=== PATIENT | female | born 1965 | race Two or more races ===

== ENCOUNTER 2024-07-21 10:23 | Inpatient (IN) | payer MEDICARE, MEDICAID, SELFPAY ==
[2024-07-21] VITALS (16 sets, daily range): BP systolic 86–134; BP diastolic 54–94; PULSE 95–133; RESP 14–26; TEMP 36.4–38.7; O2SAT 93–100; BMI 11.2; BMI 11.9
--- NOTE | 2024-07-21 | ECG_ITS ---
Test Reason : LETHARGY Blood Pressure : / mmHG Vent. Rate : 111 BPM Atrial Rate : 111 BPM P-R Int : 142 ms QRS Dur : 084 ms QT Int : 348 ms P-R-T Axes : 078 057 261 degrees QTc Int : 473 ms Sinus tachycardia Marked ST abnormality, possible anterior subendocardial injury Abnormal ECG When compared with ECG of 02-NOV-2018 17:29, ST more depressed Anterior leads T wave inversion more evident in Anterior leads Referred By: Srinivas Garzon Electronically Signed By:ARIAS LANIER
--- NOTE | ~2024-07-21 | XR_ITS ---
EXAMINATION: XR CHEST CLINICAL INFORMATION: NG tube placement COMPARISON: Chest x-ray on 07/22/2024 TECHNIQUE: Frontal view of the chest was obtained. FINDINGS: Interval placement of an NG tube which terminates past the inferior portion of this exam within the abdomen. No other changes from the prior exam. XR/XR chest 1V IMPRESSION: NG tube terminates past the inferior portion of this exam within the abdomen. Electronically signed by: Alba German MD 07/22/2024 02:38 PM EDT
--- NOTE | ~2024-07-21 | XR_ITS ---
EXAMINATION: XR CHEST CLINICAL INFORMATION: Vomiting. Altered mental status. COMPARISON: None currently available. TECHNIQUE: 2 views of the chest were obtained. FINDINGS: No significant abnormality is noted involving the heart, lungs, mediastinum, bony thorax or soft tissues. Mild calcification of the right carotid bulb. Left nipple shadow. XR/XR chest 2V IMPRESSION: Unremarkable examination. Electronically signed by: Srinivas Patel MD 07/21/2024 12:28 PM EDT
--- NOTE | ~2024-07-21 | US_ITS ---
EXAMINATION: US RETROPERITONEAL LIMITED, RIGHT (RENAL ONLY) CLINICAL INFORMATION: Osteoarthritis. COMPARISON: Ultrasound 07/24/2024. CT 07/22/2024. TECHNIQUE: Targeted ultrasound of the right kidney FINDINGS: RIGHT KIDNEY: 11.3 x 5.3 x 5.9 cm (SAG x AP x TRV). The irregular region of heterogeneous hypoechogenicity within the midpole right kidney appears similar, approximately 4.1 x 3.3 x 3.3 cm in size with hypervascularity, trace perirenal fluid, and mild hydronephrosis. This may represent pyelonephritis. Cannot exclude a renal mass. Correlate with urinalysis and follow-up cross-sectional imaging. If the patient is unable to receive iodinated contrast, a renal MRI would be recommended. US/US renal RT IMPRESSION: Similar-appearing heterogeneous region of hypoechogenicity within the midpole of the right kidney with hypervascularity, trace perirenal fluid, and mild hydronephrosis. This may represent pyelonephritis. Cannot exclude a renal mass. Correlate with urinalysis and follow-up cross-sectional imaging. If the patient is unable to receive iodinated contrast, a renal MRI would be recommended. Electronically signed by: Roldan Campbell MD 07/25/2024 02:33 PM EDT
--- NOTE | ~2024-07-21 | XR_ITS ---
EXAMINATION: XR CHEST CLINICAL INFORMATION: Status post repositioning of NG tube COMPARISON: Multiple prior chest radiographs, including same-day chest radiograph dated 07/23/2024 at 11:44 AM. TECHNIQUE: Frontal view of the chest was obtained. FINDINGS: The endogastric tube is repositioned initially in the same configuration with the tube looping back in the stomach and coursing superiorly with tip terminating in the mid esophagus on the radiograph obtained at 12:56 PM. The nasogastric tube is again repositioned, and the subsequent endogastric tube at 1:26 PM demonstrates a satisfactory position with the tip out of the field of view but otherwise within the stomach. Similar position of the right IJ central venous catheter with tip projecting over the superior cavoatrial junction. Persistent diffuse interstitial prominence and patchy airspace opacities. No pleural effusion. No pneumothorax. The heart is normal in size. XR/XR chest 1V IMPRESSION: 1. Satisfactory position of the endogastric tube following two repositioning attempts. 2. Satisfactory position of the right IJ central venous catheter. 3. Persistent diffuse interstitial prominence and patchy airspace opacities, which may represent pulmonary edema versus atypical pneumonia in the correct clinical setting. Electronically signed by: Mally Duque MD 07/23/2024 01:56 PM EDT RP
--- NOTE | ~2024-07-21 | XR_ITS ---
EXAMINATION: XR CHEST CLINICAL INFORMATION: Tube placement COMPARISON: Chest radiograph dated 07/22/2024 TECHNIQUE: Frontal view of the chest was obtained. FINDINGS: Multiple wires project over the bilateral lung quintana. Right IJ central venous catheter remains in place, with tip projecting over the superior cavoatrial junction, previously projected at about the same level but the tip was previously medially oriented and now is slightly laterally oriented. The endogastric tube remains in place. However, it is now coiled within the stomach, loops back, and the tip then courses superiorly and into the gastroesophageal junction. Diffuse interstitial prominence and patchy airspace opacities. No pleural effusion. No pneumothorax. XR/XR chest 1V IMPRESSION: 1. Endogastric tube is coiled within the stomach, loops back, and the tip then courses superiorly and terminates in the gastroesophageal junction. Recommend repositioning. 2. Satisfactory position of the right IJ central venous catheter. 3. Diffuse interstitial prominence and patchy airspace opacities may represent pulmonary edema versus atypical pneumonia in the correct clinical setting. Electronically signed by: Mally Duque MD 07/23/2024 12:23 PM EDT
--- NOTE | ~2024-07-21 | XR_ITS ---
EXAMINATION: XR CHEST CLINICAL INFORMATION: OG tube replacement COMPARISON: Chest x-ray on 07/26/2024 TECHNIQUE: Frontal view of the chest was obtained. FINDINGS: The OG tube is coiled within the stomach. There is a right upper extremity PICC terminates at the cavoatrial junction. The cardiomediastinal silhouette is stable. Redemonstration of the bilateral diffuse interstitial opacities. No new areas of consolidation. No pleural effusions. XR/XR chest 1V IMPRESSION: 1. OG tube is coiled within the stomach. 2. Unchanged bilateral diffuse interstitial opacities. Electronically signed by: Alba German MD 07/30/2024 03:23 PM EDT
--- NOTE | ~2024-07-21 | CT_ITS ---
EXAMINATION: CT PELVIS WITH CONTRAST CLINICAL INFORMATION: Sacral ulcer. Evaluate for osteomyelitis. COMPARISON: CT abdomen/pelvis dated 07/22/2024. TECHNIQUE: Helical scanning was performed with submillimeter collimation through the pelvis with the use of oral contrast and during bolus intravenous injection of 100 mL of Omnipaque 350 intravenous contrast. Sagittal and coronal multiplanar 2-D reconstructions were obtained. This CT examination was performed using dose optimization techniques as appropriate, variously including the following: *Automated exposure control. *Adjustment of mA and/or kV according to patient size (this includes techniques or standardized protocols for targeted exams where dose is matched to indication/reason for exam; i.e. extremities or head). *Use of iterative reconstruction technique. DLP: 178 mGy-cm FINDINGS: Soft tissue ulceration at the distal sacrum and coccyx with an overlying wound dressing, slightly more prominent when compared to the prior examination. This measures approximately 5.6 cm in craniocaudal dimension. There is adjacent skin thickening and underlying subcutaneous stranding, consistent with cellulitis. No organized fluid collection or abscess formation. There appears to be erosion through the posterior elements at S5 as well as irregularity of the proximal coccyx. Findings could represent acute on chronic osteomyelitis in the appropriate clinical setting. Small amount of pelvic free fluid, slightly more prominent when compared to the prior examination. No organized fluid collection. Partially distended urinary bladder with a Cannon catheter in place. No pelvic bowel obstruction. No large pelvic mass. The visualized vascular structures are unremarkable. No pelvic wall hernia. Circumferential subcutaneous edema, increased when compared to the prior examination. No acute fracture or dislocation. Geographic areas of linear sclerosis within the right and left femoral heads with central normal marrow density, consistent with chronic avascular necrosis. No cortical collapse or fragmentation. Probable bone island within the right sacrum. CT/CT pelvis w IV con IMPRESSION: 1. Soft tissue ulceration at the distal sacrum and coccyx with an overlying wound dressing, slightly more prominent when compared to the prior examination. Adjacent skin thickening and subcutaneous stranding, consistent with synovitis. No organized fluid collection or abscess formation. 2. Erosion through the posterior elements at S5 as well as irregularity of the proximal coccyx. Findings could represent acute on chronic osteomyelitis in the appropriate clinical setting. 3. Small amount of pelvic free fluid, slightly more prominent when compared to the prior examination. No organized fluid collection. 4. Circumferential subcutaneous edema, increased when compared to the prior examination. 5. Chronic avascular necrosis within the right and left femoral heads without cortical collapse or fragmentation. Electronically signed by: Mehul Gomez MD 07/27/2024 08:40 PM EDT
--- NOTE | ~2024-07-21 | XR_ITS ---
EXAMINATION: XR CHEST CLINICAL INFORMATION: 2 feeding tube placement. COMPARISON: Chest 07/23/2024 at 1:26 PM TECHNIQUE: Frontal view of the chest was obtained. FINDINGS: There is a feeding tube coiled within the stomach. Heart size and pulmonary vascularity is normal. The lungs are hyperinflated with diffuse airspace opacities seen throughout both lungs slightly more prominent compared to previous study. No pleural effusion or pneumothorax seen. XR/XR chest 1V IMPRESSION: 1. Feeding tube is coiled within the stomach. 2. Diffuse airspace opacities throughout both lungs slightly more prominent compared to previous study. Electronically signed by: Juan Carlos Goetz MD 07/26/2024 08:42 PM EDT
--- NOTE | ~2024-07-21 | CT_ITS ---
EXAMINATION: CT ABDOMEN AND PELVIS WITHOUT CONTRAST CLINICAL INFORMATION: Hypotensive, UTI COMPARISON: None available. TECHNIQUE: Multidetector volumetric imaging was performed from the superior aspect of the liver through the pubic symphysis. Sagittal and coronal reformatted images were obtained on the technologist's workstation. This CT examination was performed using dose optimization techniques as appropriate, variously including the following: *Automated exposure control *Adjustment of mA and/or kV according to patient size (this includes techniques or standardized protocols for targeted exams where dose is matched to indication/reason for exam; i.e. extremities or head) *Use of iterative reconstruction technique DLP: 324 mGy-cm FINDINGS: LUNG BASES: Bibasilar atelectasis. Hypodensity of the blood within the aorta and heart relative to the aortic lumen and muscle is compatible with anemia. LIVER, GALLBLADDER, AND BILIARY TREE: The liver is normal in size, shape, and attenuation. No focal hepatic lesion or biliary ductal dilatation is present. There are gallstones and gallbladder sludge with pericholecystic fluid. Clinically correlate for signs of cholecystitis. PANCREAS: Pancreatic lipomatosis. SPLEEN: Unremarkable. ADRENAL GLANDS: Unremarkable. KIDNEYS AND URETERS: The kidneys are normal in size, shape, and attenuation. No hydronephrosis, hydroureter, or calculi seen. No perinephric stranding. BLADDER: Unremarkable. GASTROINTESTINAL TRACT: No obstruction or obvious inflammatory process. Mild ascites. ABDOMINAL WALL: Anasarca. LYMPH NODES: Normal. VASCULAR: Diffuse vascular calcifications. PELVIC VISCERA: Unremarkable. OSSEOUS STRUCTURES: Chronic avascular necrosis of the femoral heads. CT/CT abdomen pelvis wo IV con IMPRESSION: 1. Cholelithiasis with pericholecystic fluid. Clinically correlate for signs of cholecystitis. This may be related to the patient's underlying condition. 2. Mild ascites and anasarca. Evidence of anemia. 3. No hydronephrosis or urinary tract calculi. 4. Pancreatic lipomatosis. Fleischner guidelines were followed. Electronically signed by: Roldan Campbell MD 07/22/2024 08:04 AM EDT
--- NOTE | ~2024-07-21 | US_ITS ---
EXAMINATION: US ABDOMEN LIMITED CLINICAL INFORMATION: Abdominal pain. Gallstones. Evaluate for cholecystitis. COMPARISON: CT abdomen/pelvis dated 07/22/2024. TECHNIQUE: Real-time imaging of the right upper quadrant abdominal viscera. FINDINGS: PANCREAS: Normal. LIVER: Unremarkable. The liver is normal in size. The liver contour is normal. Parenchymal echogenicity is normal. No focal hepatic lesion. There is no intrahepatic biliary duct dilatation seen. GALLBLADDER: Gallbladder stones and sludge. No wall thickening. Small amount of ascites in the pericholecystic region without inflammatory change. COMMON BILE DUCT: Normal in caliber measuring 0.2 cm in diameter. RIGHT KIDNEY: Irregular focus of hypoechogenicity within the lateral aspect of the kidney measuring up to 5.1 x 3.5 x 2.6 cm. Findings are nonspecific and could indicate an underlying lesion versus sequela of pyelonephritis. This was not well evaluated on the prior noncontrast CT abdomen/pelvis. Dedicated renal imaging could help further evaluate if clinically indicated. The kidney measures 10.6 cm in maximum dimension. FREE FLUID: Small amount of ascites. No organized fluid collection or abscess formation. Partially visualized small right-sided effusion. US/US abdomen limited IMPRESSION: 1. Cholelithiasis without gallbladder wall thickening or pericholecystic free fluid to suggest acute cholecystitis. 2. Irregular focus of hypoechogenicity within the lateral aspect of the right kidney measuring up to 5.1 cm. Findings are nonspecific and could indicate an underlying lesion versus sequela of pyelonephritis. This was not well evaluated on the prior noncontrast CT abdomen/pelvis. Dedicated renal imaging could help further evaluate. 3. Small amount of ascites. Partially visualized small right-sided effusion. Electronically signed by: Mehul Gomez MD 07/24/2024 03:36 PM EDT
--- NOTE | ~2024-07-21 | CT_ITS ---
EXAMINATION: CT HEAD WITHOUT CONTRAST CLINICAL INFORMATION: Altered mental status COMPARISON: None available. TECHNIQUE: Contiguous axial imaging was performed from the skull base to vertex without intravenous administration of contrast. This CT examination was performed using dose optimization techniques as appropriate, variously including the following: *Automated exposure control *Adjustment of mA and/or kV according to patient size (this includes techniques or standardized protocols for targeted exams where dose is matched to indication/reason for exam; i.e. extremities or head) *Use of iterative reconstruction technique DLP: 550 mGy-cm FINDINGS: No intra-axial or extra-axial hemorrhage. No acute territorial infarct. 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 Ventricles and sulci appear normal. Chronic small vessel ischemic disease of the periventricular white matter. Preservation of wyatt-white matter differentiation. No mass, mass effect, or midline shift. No fracture. Small air-fluid levels in the maxillary sinuses. Foci of air are present within the right temporal and masseter muscles. Correlate for penetrating injury or evidence of sinus infection. The mastoid air cells and visualized paranasal sinuses are otherwise clear. CT/CT head/brain wo IV con IMPRESSION: 1. No acute intracranial pathology. Chronic right high parietal infarct. 2. Foci of air within the right temporal and masseter muscles. Correlate for penetrating injury or evidence of sinus infection. Electronically signed by: Roldan Campbell MD 07/22/2024 08:22 AM EDT
--- NOTE | ~2024-07-21 | XR_ITS ---
EXAMINATION: XR CHEST CLINICAL INFORMATION: Line placement COMPARISON: Chest x-ray of 07/21/2024, 12/18/2010 TECHNIQUE: Frontal view of the chest was obtained. FINDINGS: Multiple cardiac leads and wires overlie the chest. The patient is rotated to the left. Right IJ approach central catheter is in place with the tip projecting over the expected location of the lower SVC/superior cavoatrial junction. The cardiomediastinal silhouette is stable and normal. Diffuse interstitial prominence is noted. Patchy airspace opacities are noted in the right lower lung zone. Considering the technical limitations and differences in the patient positioning mild asymmetrical elevation of the right hemidiaphragm is a stable finding. No evidence of significant pleural effusions or pneumothorax. Visualized upper abdomen is unremarkable. XR/XR chest 1V IMPRESSION: 1. Patient's rotation somewhat limits evaluation. Right IJ approach central catheter tip projects over the expected location of the lower SVC/superior cavoatrial junction. No evidence of pneumothorax. 2. Diffuse interstitial prominence and patchy airspace opacities in the right lower lung zone. Differential possibilities may include inflammatory/inflammatory process versus interstitial/pulmonary edema. Electronically signed by: Benita Rodrigues MD 07/22/2024 11:52 AM EDT
--- NOTE | ~2024-07-21 | XR_ITS ---
EXAMINATION: XR CHEST CLINICAL INFORMATION: Confirm OG tube placement COMPARISON: Test x-ray earlier on 07/30/2024 TECHNIQUE: Frontal view of the chest was obtained. FINDINGS: The enteric tube terminates in the stomach. It has been or is contracted and no longer loops within the stomach. The tip terminates near the pylorus. No other changes. XR/XR chest 1V IMPRESSION: Enteric tube terminates in the stomach. Electronically signed by: Alba German MD 07/30/2024 03:23 PM EDT
--- NOTE | ~2024-07-21 | XR_ITS ---
EXAMINATION: XR CHEST CLINICAL INFORMATION: Status post repositioning of NG tube COMPARISON: Multiple prior chest radiographs, including same-day chest radiograph dated 07/23/2024 at 11:44 AM. TECHNIQUE: Frontal view of the chest was obtained. FINDINGS: The endogastric tube is repositioned initially in the same configuration with the tube looping back in the stomach and coursing superiorly with tip terminating in the mid esophagus on the radiograph obtained at 12:56 PM. The nasogastric tube is again repositioned, and the subsequent endogastric tube at 1:26 PM demonstrates a satisfactory position with the tip out of the field of view but otherwise within the stomach. Similar position of the right IJ central venous catheter with tip projecting over the superior cavoatrial junction. Persistent diffuse interstitial prominence and patchy airspace opacities. No pleural effusion. No pneumothorax. The heart is normal in size. XR/XR chest 1V IMPRESSION: 1. Satisfactory position of the endogastric tube following two repositioning attempts. 2. Satisfactory position of the right IJ central venous catheter. 3. Persistent diffuse interstitial prominence and patchy airspace opacities, which may represent pulmonary edema versus atypical pneumonia in the correct clinical setting. Electronically signed by: Mally Duque MD 07/23/2024 01:56 PM EDT RP
--- NOTE | 2024-07-21 10:36 | ED.NAVMDI ---
HPI - Nausea/Vomiting/Diarrhea General Chief complaint: Abdominal Pain Stated complaint: diarrhea & lethergy disoreintated Time Seen by Provider: 07/21/24 10:34 Source: patient Mode of arrival: ambulatory Limitations: other History of Present Illness HPI Narrative: 59-year-old female who has never been to this hospital in the past presents to the ER via EMS for diarrhea fatigue elevated blood sugar decreased p.o. intake and confusion. MD elicited complaint: nausea, vomiting and diarrhea Related Data Allergies Allergy/AdvReac Type Severity Reaction Status Date / Time Penicillins [PENICILLINS] Allergy Severe BLEEDING, Verified 07/21/24 10:29 VOMITING aspirin [ASA] Allergy Unknown SWELLING, Verified 07/21/24 10:29 N/V Review of Systems Review of Systems: Review of systems: General: Patient denies any fever chills recent illness or falls Musculoskeletal: Denies back pain or body aches or other injuries HEENT: denies headache, runny nose, ear pain Respiratory: denies shortness of breath, cough Cardiovascular: no chest pain or palpitations : denies dysuria, frequency Abdomen: diarrhea nausea vomiting denies abdominal pain Extremities: no swelling, no pain Skin: no diaphoresis Yes all other systems are reviewed and are negative PMFSH Social History Social History (System 09/25/21 @ 10:23 by Nidhi Oliva) Smoked in Last 30 Days: No Use of substances other than those prescribed or required for medical reasons: No Advance Directives: Yes Advance Directives Information Provided: No Advance Directives on File: No Do you have a plan to hurt others: No Plan Patient : No Physical Exam Vital Signs: Vital Signs: Last Vital Signs Temp 97.6 F 07/21/24 12:57 Pulse 95 07/21/24 12:57 Resp 14 07/21/24 12:57 BP 100/68 07/21/24 12:57 Pulse Ox 93 07/21/24 12:57 O2 Del Method Room Air 07/21/24 12:57 BMI result Body Mass Index 11.2 Course Course Course Narrative: Patient found to have hypernatremia altered mental status DKA and hypokalemia potassium was repleted I started antibiotics for bandemia and will admit to medicine. Medications Administered Generic Name Dose Route Start Last Admin Trade Name Freq PRN Reason Stop Dose Admin Potassium Chloride 10 meq in 100 mls @ 100 mls/hr 07/21/24 12:30 07/21/24 12:40 Potassium Chloride/H20 IV 07/21/24 16:29 100 mls/hr Q1H MARTHA Administration Insulin Human Regular 100 unit in 100 mls @ 3 mls/hr 07/21/24 12:30 07/21/24 12:43 Myxredlin IVCONT 3 unit/hr .Q24H MARTHA 3 mls/hr Administration Protocol 3 UNIT/HR Lactated Ringer's 1,000 mls @ 999 mls/hr 07/21/24 12:30 07/21/24 12:38 Lr IV 07/21/24 13:30 999 mls/hr .Q1H1M MARTHA Administration Discontinued Medications Generic Name Dose Route Start Last Admin Trade Name Freq PRN Reason Stop Dose Admin Droperidol 1.25 mg 07/21/24 10:37 07/21/24 11:06 Droperidol 5 Mg/2 Ml Vial IVPUSH 07/21/24 10:38 1.25 mg ONCE ONE Administration Famotidine 20 mg 07/21/24 10:37 07/21/24 11:06 Famotidine/Pf 20 Mg/2 Ml Vial IVPUSH 07/21/24 10:38 20 mg ONCE ONE Administration Sodium Chloride 1,000 mls @ 999 mls/hr 07/21/24 10:45 07/21/24 12:26 Ns IV 07/21/24 11:45 Infused .Q1H1M MARTHA Infusion Sodium Chloride 1,000 mls @ 999 mls/hr 07/21/24 12:30 07/21/24 13:12 Ns IV 07/21/24 13:30 Infused .Q1H1M MARTHA Infusion Lorazepam 1 mg 07/21/24 10:37 07/21/24 11:06 Lorazepam 2 Mg/Ml Vial IVPUSH 07/21/24 10:38 1 mg ONCE ONE Administration Potassium Chloride 40 meq 07/21/24 12:25 07/21/24 12:40 Potassium Chloride Packet 20 Meq Packet PO 07/21/24 12:26 40 meq ONCE ONE Administration Medical Decision Making Medical Decision Making [facility] Narrative: I will get a workup for DKA electrolyte abnormality dehydration0 sent for EKGs and when you have the patient nausea medications patient's belly exam is benign Differential Diagnosis Differential Diagnoses: The differential diagnosis associated with the presentation includes Nausea vomiting diarrhea dehydration electrolyte abnormality DKA UTI pyelonephritis pneumonia Admission/Observation Consideration of admission/observation: Escalation of care including admission/observation considered Lab Data [facility] Lab Attestation statement: I reviewed the patient's lab results. 07/21/24 11:41 07/21/24 11:41 Labs: Lab Results 07/21/24 07/21/24 07/21/24 Range/Units 10:32 11:00 11:06 WBC (4.8-10.8) X10*3/uL RBC (4.20-5.50) X10*6/uL Hgb (12.0-16.0) g/dl Hct (37.0-47.0) % MCV (80.0-98.0) fL MCH (27.0-33.0) pg MCHC (31.0-35.0) g/dl RDW (11.0-16.0) % Plt Count (160-400) X10*3/uL MPV (9.4-12.3) fL Immature Gran % (Auto) Neut % (Auto) Lymph % (Auto) [place] % (Auto) Eos % (Auto) Baso % (Auto) Lymph # (Auto) [place] # (Auto) Eos # (Auto) Baso # (Auto) Abs Immat Gran (auto) Absolute Neuts (auto) Absolute Nucleated RBC (0.0-0.012) X10*3/uL Nucleated RBC % (auto) (0.0-0.2) /100WBC Neutrophils % (Manual) (45-73) % Band Neutrophils % (3-5) % Lymphocytes % (Manual) (20-40) % Atypical Lymphs % (Man) (0-6) % Monocytes % (Manual) (2-11) % Metamyelocytes % % Myelocytes % % Abs Neuts (Manual) (2.0-8.3) X10*3/uL Toxic Vacuolation Dohle Bodies Platelet Estimate (NORMAL) Plt Morphology Comment RBC Morphology Manjeet Cells /OIF VBG pH 7.45 H (7.32-7.43) VBG pCO2 28 mmHg VBG pO2 59 mmHg VBG HCO3 20 L (22-26) mmol/L VBG O2 Saturation 87.0 % VBG Base Excess -2.2 mmol/L Sodium (135-145) mmol/L Potassium (3.3-5.1) mmol/L Chloride (96-108) mmol/L Carbon Dioxide (22-29) mmol/L Anion Gap (12-20) BUN (9-16) mg/dL Creatinine (0.5-1.4) mg/dL Estim Creat Clear Calc Estimated GFR POC Glucose 568 H* (60-115) mg/dL Random Glucose (60-115) mg/dL Lactic Acid 2.1 H* (0.5-2.0) mmol/L Calcium (8.4-10.2) mg/dL Total Bilirubin (0.0-1.0) mg/dL Direct Bilirubin (0.0-0.5) mg/dL AST (5-31) U/L ALT (0-31) U/L Alkaline Phosphatase (39-117) U/L Troponin I High Sens (<3.5-17.0) ng/L Total Protein (6.5-8.0) g/dL Albumin (3.5-5.0) g/dL Lipase (8-78) U/L Beta-Hydroxybutyrate 2.79 H (0.02-0.27) mmol/L 07/21/24 Range/Units 11:41 WBC 2.3 L (4.8-10.8) X10*3/uL RBC 4.00 L (4.20-5.50) X10*6/uL Hgb 10.9 L (12.0-16.0) g/dl Hct 35.3 L (37.0-47.0) % MCV 88.3 (80.0-98.0) fL MCH 27.3 (27.0-33.0) pg MCHC 30.9 L (31.0-35.0) g/dl RDW 16.0 (11.0-16.0) % Plt Count 75 L (160-400) X10*3/uL MPV 13.3 H (9.4-12.3) fL Immature Gran % (Auto) Cancelled Neut % (Auto) Cancelled Lymph % (Auto) Cancelled [place] % (Auto) Cancelled Eos % (Auto) Cancelled Baso % (Auto) Cancelled Lymph # (Auto) Cancelled [place] # (Auto) Cancelled Eos # (Auto) Cancelled Baso # (Auto) Cancelled Abs Immat Gran (auto) Cancelled Absolute Neuts (auto) Cancelled Absolute Nucleated RBC 0.000 (0.0-0.012) X10*3/uL Nucleated RBC % (auto) 0.0 (0.0-0.2) /100WBC Neutrophils % (Manual) 70 (45-73) % Band Neutrophils % 24 H (3-5) % Lymphocytes % (Manual) 1 L (20-40) % Atypical Lymphs % (Man) 2 (0-6) % Monocytes % (Manual) 1 L (2-11) % Metamyelocytes % 1 % Myelocytes % 1 % Abs Neuts (Manual) 2.2 (2.0-8.3) X10*3/uL Toxic Vacuolation PRESENT Dohle Bodies PRESENT Platelet Estimate DECREASED (NORMAL) Plt Morphology Comment NORMAL RBC Morphology NOTED Manjeet Cells 2+ (3-5) /OIF VBG pH (7.32-7.43) VBG pCO2 mmHg VBG pO2 mmHg VBG HCO3 (22-26) mmol/L VBG O2 Saturation % VBG Base Excess mmol/L Sodium 157 H (135-145) mmol/L Potassium 2.6 L* (3.3-5.1) mmol/L Chloride 124 H (96-108) mmol/L Carbon Dioxide 21 L (22-29) mmol/L Anion Gap 15 (12-20) BUN 79 H (9-16) mg/dL Creatinine 1.82 H (0.5-1.4) mg/dL Estim Creat Clear Calc 14.7 Estimated GFR 28 POC Glucose (60-115) mg/dL Random Glucose 708 H* (60-115) mg/dL Lactic Acid (0.5-2.0) mmol/L Calcium 7.7 L (8.4-10.2) mg/dL Total Bilirubin 0.6 (0.0-1.0) mg/dL Direct Bilirubin 0.4 (0.0-0.5) mg/dL AST 19 (5-31) U/L ALT 19 (0-31) U/L Alkaline Phosphatase 117 (39-117) U/L Troponin I High Sens 2.8 (<3.5-17.0) ng/L Total Protein 5.0 L (6.5-8.0) g/dL Albumin 2.3 L (3.5-5.0) g/dL Lipase 5 L (8-78) U/L Beta-Hydroxybutyrate (0.02-0.27) mmol/L Independent Interpretation I performed an independent interpretation of an: EKG and Plain X-Ray Interpretation: Rate 111 sinus tachycardia some ischemic looking T-waves inferiorly I will add on troponins as they were not done initially Critical Care Time Critical Care Time Critical Care Time: Yes Total Critical Care Time: 55 Attestation: Patient with hypernatremia DKA and needing admission to the ICU. Also with hypokalemia that was required replenishment. Discharge Plan Discharge Clinical Impression: Acute hypernatremia, Acute dehydration, Acute hypokalemia, Diabetic keto-acidosis, Acidosis, lactic, Acute kidney injury Patient Disposition: Admitted As Inpatient Print Language: Divehi
[2024-07-21 10:38] LABS: Glucose, Whole Blood 568 mg/dL (60-115)
[2024-07-21] MEDS: Famotidine/PF 20 MG/2 ML VIAL IVPUSH (11:06)
[2024-07-21] MEDS: droPERidol 5 MG/2 ML VIAL 1.25 MG IVPUSH (11:06)
[2024-07-21] MEDS: LORazepam 2 MG/ML VIAL 1 MG IVPUSH ×2 (11:06→23:18)
--- NOTE | 2024-07-21 11:06 | PC.NURSE ---
pt biba from home d/t nonbloody diarrhea/lethargy/hyperglycemia/confusion/decreased PO intake x 2 days. POC = 584mg/dL via EMS. pt verbalizes generalized abd pain. denies nausea/vomiting. upon ED arrival - pt a&ox4 but seemingly lethargic. tachycardic. denies chest pain/palpitations. hypotensive. BP obtained in UE bilaterally. POC upon ED arrival = 568mg/dL. pt changed into hospital attire. turned/repositioned to comfort. 20gIV placed in the right forearm - labs obtained/sent to lab. IVF/medication administered per provider order. sister bedside for support. no sob/wob noted. respirations even/unlabored. plan of care ongoing. call link placed within reach.
[2024-07-21] MEDS: 0.9 % Sodium Chloride 1,000 ML 999 ML IV ×2 (11:09→12:45)
[2024-07-21 11:10] LABS: Venous Blood Gas Refer to POC result
[2024-07-21 11:10] LABS: VBG Base Excess -2.2 mmol/L; VBG HCO3 20 mmol/L (22-26); VBG pCO2 28 mmHg; VBG pH 7.45 (7.32-7.43); VBG pO2 59 mmHg
--- NOTE | 2024-07-21 11:17 | PC.NURSE ---
pt to xray at this time. plan of care ongoing.
[2024-07-21 11:20] LABS: Lactic Acid 2.1 mmol/L (0.5-2.0)
[2024-07-21 11:21] LABS: Beta-Hydroxybutyrate 2.79 mmol/L (0.02-0.27)
--- NOTE | 2024-07-21 11:45 | PC.NURSE ---
straight catheterization performed - unable to obtain urine sample. bladder scan performed displaying 27ml. IVF continues to infuse at this time. provider notified/aware of bladder scan results. will reattempt. plan of care ongoing. call link placed within reach.
[2024-07-21 12:06] LABS: Hematocrit 35.3 % (37.0-47.0); Hemoglobin 10.9 g/dl (12.0-16.0); Mean Corpuscular HGB Conc 30.9 g/dl (31.0-35.0); Mean Corpuscular Hemoglobin 27.3 pg (27.0-33.0); Mean Corpuscular Volume 88.3 fL (80.0-98.0)
[2024-07-21 12:07] LABS: WBC ABN SCTR FOR CBC 1
--- NOTE | 2024-07-21 12:23 | PC.NURSE ---
critical lab value received at this time - troponin of 89 - dr. mcgee notified/aware.
[2024-07-21 12:24] LABS: Alanine Aminotransferase 19 U/L (0-31); Albumin Level 2.3 g/dL (3.5-5.0); Alkaline Phosphatase 117 U/L (39-117); Anion Gap 15 (12-20); Aspartate Amino Transferase 19 U/L (5-31); Bilirubin Direct 0.4 mg/dL (0.0-0.5); Bilirubin Total 0.6 mg/dL (0.0-1.0); Blood Urea Nitrogen 79 mg/dL (9-16); Calcium 7.7 mg/dL (8.4-10.2); Carbon Dioxide 21 mmol/L (22-29); Chloride 124 mmol/L (96-108); Creatinine Clr Calc Pharmacy 14.7; Estimated Glomerular Filt Rate 28; Lipase 5 U/L (8-78); Sodium 157 mmol/L (135-145)
[2024-07-21 12:25] LABS: Glucose Random 708 mg/dL (60-115); Potassium 2.6 mmol/L (3.3-5.1)
[2024-07-21] MEDS: Lactated Ringers 1,000 ML 999 ML IV (12:38)
[2024-07-21] MEDS: Potassium Chloride/H20 10 MEQ/100 ML PIGGYBACK 100 MEQ IV ×4 (12:40→17:20)
[2024-07-21] MEDS: Potassium Chloride Packet 20 MEQ PACKET 40 MEQ PO (12:40)
[2024-07-21] MEDS: Insulin Regular/NS 100 UNIT/100 ML PLAST..BAG IVCONT (12:43)
[2024-07-21 12:51] LABS: Atypical Lymphs Percent Manual 2 % (0-6); Lymphocytes Percent Manual 1 % (20-40); Metamyelocytes Percent 1 %; Monocytes Percent Manual 1 % (2-11); Myelocytes Percent 1 %; Neutrophils Percent Manual 70 % (45-73)
--- NOTE | 2024-07-21 12:54 | PC.NURSE ---
two, new 20gIVs placed in the left wrist/forearm d/t most recent resulted labs. all IV access remain patent/intact. IVF/medication administered per provider order. insulin drip currently infused @ 3u/hr d/t pt's most recent POC via lab. effectiveness pending. vss and up to date aside from pt remaining hypotensive. HR continues to improve - no longer tachycardic. trip rider displays as nsr. pt remains lethargic. responsive to physical stimuli only at this time. sternal rub needed to wake pt. unable to administer PO K+ d/t pt having difficulty swallowing despite sitting upright to promote patent airway. provider notified/aware that pt failed nursing swallow assessment at this time. pt remains on RA w/o difficulty - no sob/wob noted. respirations even/unlabored. plan of care ongoing. call link placed within reach.
[2024-07-21 12:57] LABS: Burr Cells 2+ (3-5) /OIF; Dohle Bodies PRESENT; RBC Morphology NOTED; Toxic Vacuolation PRESENT
[2024-07-21 12:58] LABS: Platelet Estimate DECREASED (NORMAL); Platelet Morphology Comment NORMAL
[2024-07-21 13:00] LABS: Band Neutrophils Percent 24 % (3-5)
[2024-07-21 13:01] LABS: Mean Platelet Volume 13.3 fL (9.4-12.3); Neutrophils Absolute Manual 2.2 X10*3/uL (2.0-8.3); Platelet Count 75 X10*3/uL (160-400); White Blood Count 2.3 X10*3/uL (4.8-10.8)
[2024-07-21 13:06] LABS: Reflex Lactate? Lactic Acid Added
--- NOTE | 2024-07-21 13:09 | CA_ITS ---
Transthoracic Echocardiogram Patient (Last, First, Middle): Sadia Aguirre, Gender: Female Date of : 1965 Age: 59 Procedure Date: 07/21/2024 Procedure Type: Transthoracic Echocardiogram Location: ER Height: 160.02 cm Weight: 28.58 kg BSA: 1.18 m2 Heart Rate: bpm BP: 100 / 68 mmHg Director Of Exhibits: Referring MD: Srinivas Garzon DO Symptoms: abnormal EKG Study Quality: Adequate ECG Rhythm: Sinus Conclusions: - Normal left ventricular size, thickness, systolic function, and wall motion. The visually estimated ejection fraction is between 60-65%. Diastolic function is normal for age. - Normal right ventricular cavity size and systolic function. Findings Left Ventricle Normal left ventricular size, thickness, systolic function, and wall motion. The visually estimated ejection fraction is between 60-65%. Diastolic function is normal for age. Right Ventricle Normal right ventricular cavity size and systolic function. Atria The left atrium is normal in size. Aortic Valve The aortic valve was not well visualized. There is no aortic valve stenosis. There is no aortic valve regurgitation. Mitral Valve The mitral valve appears normal. There is trace mitral valve regurgitation. There is no mitral valve stenosis. Pulmonic Valve The pulmonic valve is likely normal. Tricuspid Valve Normal tricuspid valve structure. There is no tricuspid valve regurgitation. Normal right atrial pressure. There is no evidence of pulmonary hypertension. Great Vessels All visible segments of the aorta are normal in size. The visualized portions of the pulmonary artery and branches are normal. Venous The inferior vena cava is normal in size and collapses greater than 50% with inspiration. Pericardium/Pleural There is no evidence of pericardial effusion. Prior Study Comparison No prior study available for comparison. Measurements 2D Linear Measurements IVSd: 0.86 0.6-0.9/0.6-1.0 cm LVIDd: 3.20 3.9-5.3/4.2-5.9 cm LVIDd Index: 2.71 2.4-3.2/2.2-3.1 cm/m2 LVIDs: 2.30 2.0-3.6 cm LVPWd: 0.88 0.7-1.1 cm Ao Root: 3.30 2.1-3.5 cm LA Diam: 1.80 2.7-3.8/3.0-4.0 cm LAIDs Index: 1.53 1.5-2.3 cm/m2 LV Mass: 90.99 67-162/88-224 g LV Mass Index: 77.11 43-95/49-115 g/m2 LVOT Diam: 2.00 3.0+(-)1.3 cm 2D Systolic Function EF 4C: 64.00 >55% EF 2C: 61.70 >55% Mitral Valve MV Pk E: 0.61 MV PK A: 0.85 MV Decel Time: 82.00 E/A: 0.70 E'Lateral: 12.40 E'Medial: 8.59 E/E' Med: 7.10 E/E' Lat: 4.90 PHT: 24.00 MVA PHT: 9.17 Decel Dale: 7.41 Aortic Valve AoV Pk Gerardo: 1.18 AoV Mn Gerardo: 0.76 AoV VTI: 0.23 AoV Pk Grad: 6.00 Aov Mn Grad: 3.00 GLORIA Cont.VTI: 2.37 LVOT LVOT Pk Gerardo: 0.86 LVOT Mn Gerardo: 0.50 LVOT VTI: 0.17 LVOT Pk Grad: 3.00 LVOT Mn Grad: 1.00 LVOT Diam: 2.00 LVOT Area: 3.14 Diastolic Function MV Pk E: 0.61 MV Pk A: 0.85 E/A: 0.70 E'Medial: 8.59 E/E' Med: 7.10 E' Laterial: 12.40 E/E' Lat: 4.90 Right Ventricle TAPSE (mm): 28.00 TVS' Gerardo: 19.00 Tricuspid Valve TR Pk Gerardo: 2.00 TR Pk Grad: 16.00 RA Press: 3.00 RVSP: 19.00 Great Vessels Aorta Ao Root-2D: 3.30 2.0-3.7 cm Ao Asc: 3.20 2.1-3.4 cm Pulmonary Valve PV Pk Gerardo: 0.91 Peak PV Grad: 3.00 Updated in Other Vendor System with Status of Final Luca Weaver MD electronically signed on 07/21/2024 2:52:15 PM with status of Final
[2024-07-21 13:11] LABS: Troponin-I High Sensitivity 2.8 ng/L (<3.5-17.0)
--- NOTE | 2024-07-21 13:15 | ECG_ITS ---
Test Reason : REPEAT Blood Pressure : / mmHG Vent. Rate : 099 BPM Atrial Rate : 099 BPM P-R Int : 144 ms QRS Dur : 080 ms QT Int : 364 ms P-R-T Axes : 040 051 -65 degrees QTc Int : 467 ms Normal sinus rhythm ST & T wave abnormality, consider inferior ischemia ST & T wave abnormality, consider anterolateral ischemia Abnormal ECG When compared with ECG of 21-JUL-2024 10:36, ST no longer depressed in Inferior leads ST less depressed in Anterior leads T wave inversion less evident in Inferior leads T wave inversion less evident in Anterior leads Referred By: Srinivas Garzon Electronically Signed By:ARIAS LANIER
[2024-07-21] MEDS: Lactated Ringers 1,000 ML 100 ML IVCONT ×2 (13:26→18:43)
[2024-07-21] MEDS: cefEPime HCl 2 GM in 0.9 % Sodium Chloride 50 ML IV (13:29)
[2024-07-21] MEDS: Heparin Sodium,Porcine 5,000 UNIT/ML VIAL 5000 UNIT SUBCUT (13:29)
[2024-07-21] MEDS: Albumin Human 25 % 100 ML IV ×2 (13:32→19:55)
[2024-07-21] MEDS: vancomycin HCL 1,000 MG in 0.9 % Sodium Chloride 250 ML 270 MG IV (13:47)
--- NOTE | 2024-07-21 13:49 | PC.NURSE ---
repeat POC obtained displaying 533mg/dL. insulin drip titrated per protocol. pt waiting for bed assignment in the ICU at this time. plan of care ongoing.
[2024-07-21 13:51] LABS: Glucose, Whole Blood 533 mg/dL (60-115)
[2024-07-21 13:56] LABS: Anion Gap 17 (12-20)
[2024-07-21 14:04] LABS: Blood Urea Nitrogen 77 mg/dL (9-16); Calcium 7.9 mg/dL (8.4-10.2); Carbon Dioxide 18 mmol/L (22-29); Chloride 124 mmol/L (96-108); Creatinine Clr Calc Pharmacy 14.8; Estimated Glomerular Filt Rate 29; Glucose Random 679 mg/dL (60-115); Phosphorus 3.2 mg/dL (2.7-4.5); Sodium 156 mmol/L (135-145)
[2024-07-21 14:12] LABS: TSH reflex Free T4 0.69 uIU/mL (0.32-4.0)
[2024-07-21 14:43] LABS: Glucose, Whole Blood 491 mg/dL (60-115)
[2024-07-21 15:12] LABS: Glucose, Whole Blood 512 mg/dL (60-115)
--- NOTE | 2024-07-21 15:29 | P.HPCC_ITS ---
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 On ER evaluation patient with elevated serum ketones, but no acidosis, started on insulin drip and admitted to the intensive care unit. Review of Systems 2 Review of Systems: No Unobtainable due to mental condition PMFSH Social History Social History (System 09/25/21 @ 10:23 by Nidhi Oliva) Smoked in Last 30 Days: No Use of substances other than those prescribed or required for medical reasons: No Advance Directives: Yes Advance Directives Information Provided: No Advance Directives on File: No Do you have a plan to hurt others: No Plan Patient : No Meds Allergies Allergy/AdvReac Type Severity Reaction Status Date / Time Penicillins [PENICILLINS] Allergy Severe BLEEDING, Verified 07/21/24 10:29 VOMITING aspirin [ASA] Allergy Unknown SWELLING, Verified 07/21/24 10:29 N/V Active Medications: Current Medications Heparin Sodium (Porcine) (Heparin Sodium,Porcine 5,000 Unit/Ml Vial) 5,000 unit SUBCUT Q12H [facility] Last Admin: 07/21/24 13:29 Dose: 5,000 unit Potassium Chloride (Potassium Chloride/H20) 10 meq in 100 mls @ 100 mls/hr IV Q1H [facility] Stop: 07/21/24 16:29 Last Admin: 07/21/24 14:38 Dose: 100 mls/hr Insulin Human Regular (Myxredlin) 100 unit in 100 mls @ 3 mls/hr IVCONT .Q24H [facility]; Protocol Last Titration: 07/21/24 14:43 Dose: 3 unit/hr, 3 mls/hr Dextrose (D10) 250 mls @ 750 mls/hr IV Q30M PRN PRN Reason: BG <70 Lactated Ringer's (Lr) 1,000 mls @ 100 mls/hr IVCONT .Q10H [facility] Last Admin: 07/21/24 13:26 Dose: 100 mls/hr Albumin Human (Kedbumin 25 %) 100 mls @ 100 mls/hr IV Q6H [facility] Stop: 07/22/24 08:14 Last Infusion: 07/21/24 14:33 Dose: Infused Home Medications ?Medication ?Instructions ?Recorded ?Confirmed ?Last Taken ?Type allopurinol 100 mg tablet 100 mg PO DAILY 07/21/24 07/21/24 Unknown History insulin glargine 100 unit/mL (3 24 unit subcut BEDTIME 07/21/24 07/21/24 Unknown History mL) subcutaneous pen (Lantus Solostar U-100 Insulin) insulin lispro 100 unit/mL 1 sliding scale dose subcut 07/21/24 07/21/24 Unknown History subcutaneous pen (Humalog KwikPen USEASDIRECTD (U-100) Insulin) lisinopril 10 mg tablet 10 mg PO DAILY 07/21/24 07/21/24 Unknown History Physical Exam 2 Vital Signs: Vital Signs: Last Vital Signs Temp 97.9 F 07/21/24 14:29 Pulse 101 H 07/21/24 15:00 Resp 20 07/21/24 15:00 BP 102/71 07/21/24 15:00 Pulse Ox 94 07/21/24 15:00 O2 Del Method Room Air 07/21/24 15:00 BMI result Body Mass Index 11.9 Const: General: no acute distress and other (petite) Nutritional Appearance: cachectic Eyes: Sclerae: sclerae normal EOM: EOMs intact bilaterally Neck: Neck: Yes no lymphadenopathy, Yes trachea midline and Yes supple Resp: Effort & Inspection: normal respiratory effort and no respiratory distress Auscultation: clear to auscultation bilaterally Cardio: Rate: tachycardic Rhythm: regular rhythm Heart sounds: no gallops, no murmurs and no rubs GI: Palpation (GI): Soft to palpation and Other GI palpation findings present ( Nontender) Auscultation: normal bowel sounds Extrem: General: Yes no pedal edema, No clubbing and No cyanosis Results Labs 07/21/24 11:41 07/21/24 13:21 Labs: Laboratory Results - last 24 hr 07/21/24 07/21/24 07/21/24 10:32 11:00 11:06 MCV MCH MCHC RDW Plt Count MPV Immature Gran % (Auto) Neut % (Auto) Lymph % (Auto) [place] % (Auto) Eos % (Auto) Baso % (Auto) Lymph # (Auto) [place] # (Auto) Eos # (Auto) Baso # (Auto) Abs Immat Gran (auto) Absolute Neuts (auto) Absolute Nucleated RBC Nucleated RBC % (auto) Neutrophils % (Manual) Band Neutrophils % Lymphocytes % (Manual) Atypical Lymphs % (Man) Monocytes % (Manual) Metamyelocytes % Myelocytes % Abs Neuts (Manual) Toxic Vacuolation Dohle Bodies Platelet Estimate Plt Morphology Comment RBC Morphology Manjeet Cells VBG pH 7.45 H VBG pCO2 28 VBG pO2 59 VBG HCO3 20 L VBG O2 Saturation 87.0 VBG Base Excess -2.2 Anion Gap Estim Creat Clear Calc Estimated GFR POC Glucose 568 H* Random Glucose Lactic Acid 2.1 H* Lactic Acid F/U @ 2Hr Calcium Phosphorus Total Bilirubin Direct Bilirubin AST ALT Alkaline Phosphatase Troponin I High Sens Total Protein Albumin Lipase Beta-Hydroxybutyrate 2.79 H TSH 07/21/24 07/21/24 07/21/24 11:41 13:21 13:40 MCV 88.3 MCH 27.3 MCHC 30.9 L RDW 16.0 Plt Count 75 L MPV 13.3 H Immature Gran % (Auto) Cancelled Neut % (Auto) Cancelled Lymph % (Auto) Cancelled [place] % (Auto) Cancelled Eos % (Auto) Cancelled Baso % (Auto) Cancelled Lymph # (Auto) Cancelled [place] # (Auto) Cancelled Eos # (Auto) Cancelled Baso # (Auto) Cancelled Abs Immat Gran (auto) Cancelled Absolute Neuts (auto) Cancelled Absolute Nucleated RBC 0.000 Nucleated RBC % (auto) 0.0 Neutrophils % (Manual) 70 Band Neutrophils % 24 H Lymphocytes % (Manual) 1 L Atypical Lymphs % (Man) 2 Monocytes % (Manual) 1 L Metamyelocytes % 1 Myelocytes % 1 Abs Neuts (Manual) 2.2 Toxic Vacuolation PRESENT Dohle Bodies PRESENT Platelet Estimate DECREASED Plt Morphology Comment NORMAL RBC Morphology NOTED Manjeet Cells 2+ (3-5) VBG pH VBG pCO2 VBG pO2 VBG HCO3 VBG O2 Saturation VBG Base Excess Anion Gap 15 17 Estim Creat Clear Calc 14.7 14.8 Estimated GFR 28 29 POC Glucose 533 H* Random Glucose 708 H* 679 H* Lactic Acid Lactic Acid F/U @ 2Hr 2.0 Calcium 7.7 L 7.9 L Phosphorus 3.2 Total Bilirubin 0.6 Direct Bilirubin 0.4 AST 19 ALT 19 Alkaline Phosphatase 117 Troponin I High Sens 2.8 Total Protein 5.0 L Albumin 2.3 L Lipase 5 L Beta-Hydroxybutyrate TSH 0.69 07/21/24 07/21/24 14:40 15:08 MCV MCH MCHC RDW Plt Count MPV Immature Gran % (Auto) Neut % (Auto) Lymph % (Auto) [place] % (Auto) Eos % (Auto) Baso % (Auto) Lymph # (Auto) [place] # (Auto) Eos # (Auto) Baso # (Auto) Abs Immat Gran (auto) Absolute Neuts (auto) Absolute Nucleated RBC Nucleated RBC % (auto) Neutrophils % (Manual) Band Neutrophils % Lymphocytes % (Manual) Atypical Lymphs % (Man) Monocytes % (Manual) Metamyelocytes % Myelocytes % Abs Neuts (Manual) Toxic Vacuolation Dohle Bodies Platelet Estimate Plt Morphology Comment RBC Morphology [place] Cells VBG pH VBG pCO2 VBG pO2 VBG HCO3 VBG O2 Saturation VBG Base Excess Anion Gap Estim Creat Clear Calc Estimated GFR POC Glucose 491 H* 512 H* Random Glucose Lactic Acid Lactic Acid F/U @ 2Hr Calcium Phosphorus Total Bilirubin Direct Bilirubin AST ALT Alkaline Phosphatase Troponin I High Sens Total Protein Albumin Lipase Beta-Hydroxybutyrate TSH Imaging Radiologist's Impressions: Impressions Chest X-Ray 07/21/24 10:38 IMPRESSION: Unremarkable examination. Electronically signed by: Srinivas Patel MD 07/21/2024 12:28 PM EDT RP Assessment and Plan (1) Cachexia: Status: Acute (2) Ketosis: Status: Acute (3) Hypernatremia: Status: Acute (4) Intravascular volume depletion: Status: Acute (5) Hermansky-Pudlak syndrome: Status: Acute (6) Acute renal failure: Status: Acute Plan Assessment: 59-year-old lady with underlying musculoskeletal ox syndrome, developmental delay, diabetes mellitus admitted with diarrhea and hyperglycemic hyperosmolar state Plan: Neuro: No acute issues. Cardiac: No acute issues. Pulmonary: No acute issues. Renal: Acute renal failure likely secondary to hyperglycemic/hyperosmolar state. Continue to monitor renal indices and urine output. Endo: Hyperglycemia/small state. Continue with insulin drip. GI: No acute issues. ID: No acute issues Heme/Onc: No acute issues. Psych: No acute issues. Miscellaneous: No acute issues. Prophylaxis: Heparin Diet: NPO
--- NOTE | 2024-07-21 15:32 | PHA.MEDREC ---
Addendum entered by Osmar Hahn [facility] 07/21/24 15:47: Med rec reviewed, Lisinopril filled on Jul 2023 was 20 mg Original Note: Pharmacy Consult ? Medication Reconciliation Pharmacy has completed the medication reconciliation. Spoke to sister Mojgan over the phone and she states they just moved from [place] and her sister has no pharmacy she is filling at up here but states she has some medications. She states she has Lisionpril 10mg, Allopurinol and the sister was not sure but thinks she is on 100mg, Lantus solostar and the sister believes its 24 units injected at bed, A Kwik-Set Pen sliding scale TID AC, her sister claims she got them filled at a [facility] @[address] [facility]. I called them and they stated they only have a Lisinopril 2mg tab filled from July of 2023 and nothing else before or after then.
[2024-07-21 15:45] LABS: Glucose, Whole Blood 466 mg/dL (60-115)
[2024-07-21 16:08] LABS: Glucose, Whole Blood 429 mg/dL (60-115)
[2024-07-21 17:05] LABS: Glucose, Whole Blood 457 mg/dL (60-115)
--- NOTE | 2024-07-21 17:33 | HO.SKINPHOTO ---
Location: sacrum Category: deep tissue injury/pressure injury Stage: unstagable
[2024-07-21 18:01] LABS: Glucose, Whole Blood 394 mg/dL (60-115)
[2024-07-21] MEDS: Acetaminophen Supp 650 MG SUPP.RECT PR (18:06)
[2024-07-21] MEDS: Metoprolol Tartrate 5 MG/5 ML VIAL IVPUSH (18:41)
[2024-07-21 19:03] LABS: Glucose, Whole Blood 351 mg/dL (60-115)
[2024-07-21] MEDS: cefTRIAXone sodium 1 GM in 0.9 % Sodium Chloride 50 ML IV (19:55)
[2024-07-21 20:01] LABS: Glucose, Whole Blood 305 mg/dL (60-115)
[2024-07-21 20:55] LABS: Albumin Level 3.8 g/dL (3.5-5.0); Anion Gap 21 (12-20); Blood Urea Nitrogen 70 mg/dL (9-16); Calcium 8.4 mg/dL (8.4-10.2); Carbon Dioxide 14 mmol/L (22-29); Chloride 126 mmol/L (96-108); Creatinine Clr Calc Pharmacy 15.4; Estimated Glomerular Filt Rate 28; Glucose Random 396 mg/dL (60-115); Magnesium 2.7 mg/dL (1.6-2.6); Phosphorus 0.9 mg/dL (2.7-4.5); Potassium 3.5 mmol/L (3.3-5.1); Sodium 157 mmol/L (135-145)
[2024-07-21] MEDS: Potassium Phosphate/NS 15 MMOL/250 ML PLAST..BAG 62.5 MMOL IV (21:07)
[2024-07-21 21:14] LABS: Glucose, Whole Blood 271 mg/dL (60-115)
[2024-07-21 22:10] LABS: Glucose, Whole Blood 214 mg/dL (60-115)
[2024-07-21 23:07] LABS: Glucose, Whole Blood 153 mg/dL (60-115)
--- NOTE | 2024-07-21 23:08 | PM.EVENT ---
Documented by User: Stewart Dennis NP 07/21/24 23:17 Event Note Date of Service: 07/21/24 Event Note: Patient with new seizure-like activity, from chart review no history of seizures. Improve after Ativan administration. We will also initiate Keppra. Repeat labs Time Spent With Patient Time: Total time managing care of this patient today ____ minutes. Documented by User: Isaac Villar MD 07/22/24 12:46 Event Note Date of Service: 07/22/24
[2024-07-21] MEDS: levETIRAcetam in NaCl (iso-os) 500 MG/100 ML PIGGYBACK 400 MG IV (23:25)
[2024-07-21] MEDS: Dextrose 5 % and Lactated Ring 1,000 ML 100 ML IVCONT (23:45)
[2024-07-21 23:53] LABS: Venous Blood Gas Refer to POC result
[2024-07-21 23:54] LABS: VBG Base Excess -7.7 mmol/L; VBG HCO3 15 mmol/L (22-26); VBG pCO2 24 mmHg; VBG pO2 117 mmHg
[2024-07-22] VITALS (45 sets, daily range): BP systolic 68–131; BP diastolic 45–89; PULSE 76–130; RESP 15–30; TEMP 35.9–40; O2SAT 89–100; BMI 11.9
[2024-07-22 00:08] LABS: Glucose, Whole Blood 98 mg/dL (60-115)
[2024-07-22 00:09] LABS: Anion Gap 19 (12-20); Blood Urea Nitrogen 68 mg/dL (9-16); Calcium 8.2 mg/dL (8.4-10.2); Carbon Dioxide 16 mmol/L (22-29); Chloride 130 mmol/L (96-108); Creatinine Clr Calc Pharmacy 17.1; Estimated Glomerular Filt Rate 31; Glucose Random 227 mg/dL (60-115); Potassium 3.4 mmol/L (3.3-5.1); Sodium 162 mmol/L (135-145)
[2024-07-22] MEDS: Dextrose 5 % 1,000 ML 100 ML IVCONT (00:15)
[2024-07-22] MEDS: 0.9 % Sodium Chloride Flush 3 ML SYRINGE IVFLUSH ×4 (00:22→23:43)
[2024-07-22] MEDS: Potassium Phosphate/NS 15 MMOL/250 ML PLAST..BAG 62.5 MMOL IV ×3 (00:56→21:18)
[2024-07-22] MEDS: Albumin Human 25 % 100 ML IV ×3 (00:56→21:18)
[2024-07-22] MEDS: Acetaminophen 1,000 MG/100 ML PIGGYBACK 400 MG IV (00:56)
[2024-07-22 01:06] LABS: Glucose, Whole Blood 101 mg/dL (60-115)
[2024-07-22 02:10] LABS: Glucose, Whole Blood 106 mg/dL (60-115)
[2024-07-22] MEDS: Norepinephrine Bitartrate/D5W 8 MG/250 ML PLAST..BAG 2.86 MG IVCONT (02:17)
[2024-07-22 02:47] LABS: Lactic Acid 3.5 mmol/L (0.5-2.0)
--- NOTE | 2024-07-22 02:53 | PM.SEPBOLA4 ---
Sepsis Bolus Exclusion Sepsis Bolus Exclusion CHF/Renal Failure Date of Occurrence: 07/22/24 This patient met severe sepsis criteria due to the following condition(s):: Hypotension and Lactate>=4mmol/L In my clinical judgement the administration of 30 ml/kg of crystalloid would be detrimental to this patient due to the patient's following conditions:: Concern for fluid overload and Other Other (must be specific):: Patient has hypernatremia and at risk for fluid overload Replace the 30 mls/kg with (Zero amount not acceptable and all fluids for severe sepsis must be given at GREATER than 125 mls/hr) *Note: One of the quintana must be documented Colloids amount given in mls:: 100 At a rate of (must be > 125 cchr):: 133
--- NOTE | 2024-07-22 02:57 | PM.SEPSIS ---
Sepsis Event Note Evaluation Sepsis screening result: No Definite Risk Focused Exam Vital signs: Vital Signs Temp Pulse Resp BP Pulse Ox O2 Del Method 07/22/24 02:27 100 77/46 L 07/22/24 02:17 110 H 81/47 L 07/22/24 02:00 100.4 F 104 H 25 H 81/47 L 99 Room Air 07/22/24 01:00 120 H 24 H 96/56 L 94 Room Air 07/22/24 00:40 104.0 F H 07/22/24 00:00 103.1 F H 130 H 30 H 121/84 95 Room Air 07/21/24 23:00 131 H 26 H 114/94 H 99 Room Air 07/21/24 22:00 100 19 93/54 L 100 Room Air 07/21/24 21:00 99 23 H 117/57 L 97 Room Air 07/21/24 19:55 100.4 F 104 H 24 H 108/87 96 Room Air 07/21/24 18:51 100 17 119/61 98 Room Air 07/21/24 17:55 101.6 F H 133 H 18 120/68 98 Room Air 07/21/24 17:20 101.1 F H 07/21/24 16:52 118 H 26 H 134/65 95 Room Air 07/21/24 15:58 98.4 F 99 21 H 95/72 96 Room Air 07/21/24 15:00 101 H 20 102/71 94 Room Air Problem List (1) Cachexia: Status: Acute (2) Ketosis: Status: Acute (3) Hypernatremia: Status: Acute (4) Intravascular volume depletion: Status: Acute (5) Hermansky-Pudlak syndrome: Status: Acute (6) Acute renal failure: Status: Acute
[2024-07-22 03:04] LABS: Glucose, Whole Blood 93 mg/dL (60-115)
[2024-07-22] MEDS: Albumin Human 25 % 100 ML 133.33 ML IV (03:25)
[2024-07-22 03:38] LABS: Appearance Urine Cloudy; Color Urine Yellow; Glucose Urine UA 250 mg/dL (Negative); Leukocyte Esterase Urine Moderate (2+) (Negative); Nitrite Urine Negative (Negative); PH 5.5 (5.0-9.0); Specific Gravity - Urine 1.015 (1.005-1.025); UMIC TRIGGER UACC YES; Urine Blood Large (3+) (Negative); Urine Ketones Negative (Negative); Urine Protein 100 (2+) mg/dL (Neg-Trace)
[2024-07-22 03:54] LABS: Amphetamine Screen Urine Not Detected (Not Detect); Barbiturates, Urine Not Detected (Not Detect); Benzodiazepines Screen Urine Not Detected (Not Detect); Buprenorphine Scr Not Detected (Not Detect); Cannabinoid Screen Urine Not Detected (Not Detect); Cocaine Screen Urine Not Detected (Not Detect); Fentanyl, urine Not Detected (Not Detect); Methadone Screen, Urine Not Detected (Not Detect); Opiate Screen Urine Not Detected (Not Detect); Oxycodone Screen Urine Not Detected (Not Detect); Phencyclidine Screen Urine Not Detected (Not Detect)
--- NOTE | 2024-07-22 03:55 | PM.SEPSIS ---
Sepsis Event Note Evaluation Sepsis screening result: No Definite Risk <Stewart Dennis NP - Last Filed: 07/22/24 05:29> Current stage of sepsis: septic shock <Stewart Dennis NP - Last Filed: 07/22/24 05:29> Initial hypotension due to sepsis/infection: SBP < 90 mmHg and MAP < 65 mmHg <Stewart Dennis NP - Last Filed: 07/22/24 05:29> Persistent hypotension after fluid resuscitation: SBP < 90 mmHg <Stewart Dennis NP - Last Filed: 07/22/24 05:29> Possible source: genitourinary and skin/soft tissue <Stewart Dennis NP - Last Filed: 07/22/24 05:29> Focused Exam Vital signs: Vital Signs Temp Pulse Resp BP Pulse Ox O2 Del Method 07/22/24 03:54 80 75/46 L 07/22/24 03:42 84 73/45 L 07/22/24 03:25 86 68/46 L 07/22/24 03:00 98.8 F 86 19 80/49 L 99 Room Air 07/22/24 02:57 94 86/48 L 07/22/24 02:27 100 77/46 L 07/22/24 02:17 110 H 81/47 L 07/22/24 02:00 100.4 F 104 H 25 H 81/47 L 99 Room Air 07/22/24 01:00 120 H 24 H 96/56 L 94 Room Air 07/22/24 00:40 104.0 F H 07/22/24 00:00 103.1 F H 130 H 30 H 121/84 95 Room Air 07/21/24 23:00 131 H 26 H 114/94 H 99 Room Air 07/21/24 22:00 100 19 93/54 L 100 Room Air 07/21/24 21:00 99 23 H 117/57 L 97 Room Air 07/21/24 19:55 100.4 F 104 H 24 H 108/87 96 Room Air 07/21/24 18:51 100 17 119/61 98 Room Air 07/21/24 17:55 101.6 F H 133 H 18 120/68 98 Room Air 07/21/24 17:20 101.1 F H 07/21/24 16:52 118 H 26 H 134/65 95 Room Air 07/21/24 15:58 98.4 F 99 21 H 95/72 96 Room Air Focused assesment performed at 0526 Constitutional: cachectic, frail looking, in no acute distress. Mental Status: respnds to painful stimuli Eyes: Pupils are equal, round, and reactive to light. Ear, Nose, and Throat: Oropharynx clear, mucous membranes moist. Ears and nose without deformities. Trachea midline. Respiratory: Clear to auscultation Cardiovascular: S1, S2 regular. No murmurs, rubs, or gallops. Gastrointestinal: Abdomen soft, non-tender, non-distended. Normal bowel sounds. Neurologic: Protecting airway. No focal neurological deficits. Moves all extremities spontaneously. Skin: Coccyx pressure ulce Extremities: No edema. Psychiatric: Normal mood and affect. <Stewart Dennis NP - Last Filed: 07/22/24 05:29> Date exam was performed: 07/22/24 <Stewart Dennis NP - Last Filed: 07/22/24 05:29> 07/22/24 <Isaac Villar MD - Last Filed: 07/22/24 12:46> Time exam was performed: 05:26 <Stewart Dennis NP - Last Filed: 07/22/24 05:29> 12:46 <Isaac Villar MD - Last Filed: 07/22/24 12:46> Problem List (1) Septic shock: Status: Acute <Stewart Dennis NP - Last Filed: 07/22/24 05:29> (2) UTI (urinary tract infection): Status: Acute <Stewart Dennis NP - Last Filed: 07/22/24 05:29> (3) Acute renal failure: Status: Acute <Stewart Dennis NP - Last Filed: 07/22/24 05:29> (4) Cachexia: Status: Acute <Stewart Dennis NP - Last Filed: 07/22/24 05:29> (5) Ketosis: Status: Acute <Stewart Dennis NP - Last Filed: 07/22/24 05:29> (6) Hypernatremia: Status: Acute <Stewart Dennis NP - Last Filed: 07/22/24 05:29> (7) Intravascular volume depletion: Status: Acute <Stewart Dennis NP - Last Filed: 07/22/24 05:29> (8) Hermansky-Pudlak syndrome: Status: Acute <Stewart Dennis NP - Last Filed: 07/22/24 05:29>
[2024-07-22] MEDS: Lactated Ringers 1,000 ML 999 ML IV (04:04)
[2024-07-22 04:08] LABS: Glucose, Whole Blood 81 mg/dL (60-115)
[2024-07-22 04:10] LABS: Reflex Lactate? Lactic Acid Added
[2024-07-22 04:30] LABS: Hematocrit 24.5 % (37.0-47.0); Hemoglobin 7.7 g/dl (12.0-16.0); Mean Corpuscular HGB Conc 31.4 g/dl (31.0-35.0); Mean Corpuscular Hemoglobin 27.7 pg (27.0-33.0); Mean Corpuscular Volume 88.1 fL (80.0-98.0); Red Blood Count 2.78 X10*6/uL (4.20-5.50); Red Cell Distribution Width 15.9 % (11.0-16.0)
[2024-07-22 04:32] LABS: Platelet Count 57 X10*3/uL (160-400); WBC ABN SCTR FOR CBC 1; White Blood Count 2.1 X10*3/uL (4.8-10.8)
[2024-07-22 04:33] LABS: VBG Base Excess -4.7 mmol/L; VBG HCO3 19 mmol/L (22-26); VBG pCO2 29 mmHg; VBG pH 7.41 (7.32-7.43); VBG pO2 39 mmHg
[2024-07-22] MEDS: Sodium Bicarbonate 8.4% 50 MEQ/50 ML SYRINGE IVPUSH (04:35)
[2024-07-22 04:50] LABS: Bacteria Urine 1+ (None Seen); RBC Urine >20 /HPF (0-2); Squamous Epithelial Cell Urine >20 /HPF (0-2); UACC Culture Trigger YES; WBC Urine >50 /HPF (0-5)
[2024-07-22 04:52] LABS: ~Lactic Acid-LAB USE ONLY 4.5 mmol/L (0.5-2.0)
[2024-07-22 04:57] LABS: Alanine Aminotransferase 22 U/L (0-31); Albumin Level 3.7 g/dL (3.5-5.0); Alkaline Phosphatase 182 U/L (39-117); Anion Gap 18 (12-20); Aspartate Amino Transferase 85 U/L (5-31); Bilirubin Total 1.5 mg/dL (0.0-1.0); Blood Urea Nitrogen 67 mg/dL (9-16); Calcium 8.4 mg/dL (8.4-10.2); Carbon Dioxide 18 mmol/L (22-29); Chloride 129 mmol/L (96-108); Estimated Glomerular Filt Rate 36; Glucose Random 144 mg/dL (60-115); Magnesium 2.3 mg/dL (1.6-2.6); Phosphorus 2.5 mg/dL (2.7-4.5); Potassium 3.1 mmol/L (3.3-5.1); Sodium 162 mmol/L (135-145); Total Protein 5.5 g/dL (6.5-8.0)
[2024-07-22 05:14] LABS: Glucose, Whole Blood 94 mg/dL (60-115)
[2024-07-22 05:33] LABS: Venous Blood Gas Refer to POC result
[2024-07-22] MEDS: vancomycin HCL 750 MG in 0.9 % Sodium Chloride 250 ML 265 MG IV (05:49)
[2024-07-22 06:27] LABS: Reflex Lactate? 2 Y
--- NOTE | 2024-07-22 07:05 | PC.NURSE ---
Upon initial assessment at 2000- pt stuporous, minimally responsive. At approx 2300, ?sz activity, nystagmus and BUE twitching noted- [facility] Sonny notified, orders for ativan 1 mg IVP x1 and Keppra IV BID ordered and given per DEC. At approx 0030- HR up to 130s, rectal temp 104. [facility] notified- given APAP IV x1 per DEC and ice bags applied to B/L axillia. At approx 0200- SBP 80s, MAP < 60, [facility] notified- new orders for levophed, see MAR for titrations, MAP goal > 60 per [facility]. Urine sample/culture ordered, collected via straight cath d/t incontinence. Pt brought to CT scan at approx 0500 without incident.
[2024-07-22] MEDS: Potassium Chloride/H20 10 MEQ/100 ML PIGGYBACK 100 MEQ IV ×4 (07:26→10:39)
[2024-07-22 07:40] LABS: ~Lactic Acid-LAB USE ONLY 3.9 mmol/L (0.5-2.0)
[2024-07-22 07:53] LABS: Band Neutrophils Percent 23 % (3-5); Basophils Percent Manual 1 % (0-2); Lymphocytes Absolute Manual 0.3 X10*3/uL (1.2-4.9); Lymphocytes Percent Manual 14 % (20-40); Metamyelocytes Percent 2 %; Monocytes Percent Manual 1 % (2-11); Neutrophils Absolute Manual 1.7 X10*3/uL (2.0-8.3); Neutrophils Percent Manual 59 % (45-73); Nucleated Red Blood Cells 1 /100WBC (0-0)
[2024-07-22 07:54] LABS: RBC Morphology NOTED
[2024-07-22 07:56] LABS: Dohle Bodies PRESENT; Toxic Vacuolation PRESENT
[2024-07-22 07:57] LABS: Acanthocytes 1+ (0-2) /OIF; Burr Cells 1+ (0-2) /OIF
[2024-07-22 07:58] LABS: Hypochromasia 1+ (5-14) /OIF; Large Platelet PRESENT; Platelet Estimate DECREASED (NORMAL); Platelet Morphology Comment NOTED
[2024-07-22] MEDS: levETIRAcetam 250 MG in 0.9 % Sodium Chloride 100 ML 410 MG IV ×2 (09:23→21:16)
[2024-07-22] MEDS: Dextrose 5 % 1,000 ML 200 ML IVCONT ×2 (09:42→14:12)
[2024-07-22] MEDS: Midazolam HCl/PF 2 MG/2 ML VIAL IVPUSH (10:20)
[2024-07-22] MEDS: Potassium Chloride/H20 40 MEQ/100 ML PIGGYBACK 50 MEQ IV (11:12)
[2024-07-22 11:48] LABS: Glucose, Whole Blood 331 mg/dL (60-115)
[2024-07-22] MEDS: Insulin Lispro 100 UNIT/ML 3 ML VIAL SUBCUT ×2 (11:55→16:49)
[2024-07-22] MEDS: Insulin Glargine,Hum.rec.anlog 100 UNIT/ML 10 ML VIAL 10 UNIT SUBCUT (11:56)
--- NOTE | 2024-07-22 12:46 | W.PM.CCHP ---
Procedures Date of Service Date of Service: 07/22/24 Central Line Placement Right IJ: Central Line Comments: After obtaining informed consent right internal jugular triple-lumen central venous catheter placed for vasopressor support under ultrasound guidance and sterile conditions with no immediate complications. Line position verified on chest x-ray.
--- NOTE | 2024-07-22 12:47 | PM.CCPN ---
Subjective Subjective Date of Service: 07/22/24 Interval History: 59-year-old lady with underlying Hermansky Pudlak syndrome, diabetes mellitus, developmental delay, hypertension admitted on 07/21/2024 with complains of diarrhea and confusion. On ER evaluation patient with elevated serum ketones, but no acidosis, started on insulin drip and admitted to the intensive care unit. Overnight with development of septic shock with likely source requiring pressor support. Critical Care Time (minutes): 60 Physical Exam Vital Signs: Vital Signs: Last Vital Signs Temp 97.2 F 07/22/24 12:00 Pulse 85 07/22/24 12:11 Resp 17 07/22/24 12:00 BP 88/57 L 07/22/24 12:11 Pulse Ox 100 07/22/24 12:00 O2 Del Method Nasal Cannula 07/22/24 12:00 O2 Flow Rate 1 07/22/24 12:00 BMI result Body Mass Index 11.9 Const: General: no acute distress and lethargic Nutritional Appearance: cachectic Orientation/consciousness: lethargic Eyes: Sclerae: sclerae normal EOM: EOMs intact bilaterally Neck: Neck: Yes no lymphadenopathy, Yes trachea midline and Yes supple Resp: Effort & Inspection: normal respiratory effort and no respiratory distress Auscultation: clear to auscultation bilaterally Cardio: Rate: regular rate Rhythm: regular rhythm Heart sounds: no gallops, no murmurs and no rubs GI: Palpation (GI): Soft to palpation and Other GI palpation findings present ( Nontender) Auscultation: normal bowel sounds Extrem: General: Yes no pedal edema, No clubbing and No cyanosis Objective Data Labs 07/22/24 04:23 07/22/24 04:23 Labs: Laboratory Results - last 24 hr 07/21/24 07/21/24 07/21/24 11:41 13:21 13:40 WBC 2.3 L RBC Hgb Hct MCV MCH MCHC RDW Plt Count 75 L MPV 13.3 H Immature Gran % (Auto) Neut % (Auto) Lymph % (Auto) [place] % (Auto) Eos % (Auto) Baso % (Auto) Lymph # (Auto) [place] # (Auto) Eos # (Auto) Baso # (Auto) Abs Immat Gran (auto) Absolute Neuts (auto) Absolute Nucleated RBC Nucleated RBC % (auto) Neutrophils % (Manual) 70 Band Neutrophils % 24 H Lymphocytes % (Manual) 1 L Atypical Lymphs % (Man) 2 Monocytes % (Manual) 1 L Basophils % (Manual) Metamyelocytes % 1 Myelocytes % 1 Abs Neuts (Manual) 2.2 Lymphocytes # (Manual) Nucleated RBCs Toxic Vacuolation PRESENT Dohle Bodies PRESENT Platelet Estimate DECREASED Large Platelets Plt Morphology Comment NORMAL RBC Morphology NOTED Hypochromasia Manjeet Cells 2+ (3-5) Acanthocytes (Spur) VBG pH VBG pCO2 VBG pO2 VBG HCO3 VBG O2 Saturation VBG Base Excess Sodium 156 H Potassium 3.0 L Chloride 124 H Carbon Dioxide 18 L Anion Gap 17 BUN 77 H Creatinine 1.80 H Estim Creat Clear Calc 14.8 Estimated GFR 29 POC Glucose 533 H* Random Glucose 679 H* Lactic Acid Lactic Acid F/U @ 2Hr 2.0 Lactic Acid F/U @ 4Hr Calcium 7.9 L Phosphorus 3.2 Magnesium Total Bilirubin AST ALT Alkaline Phosphatase Troponin I High Sens 2.8 Total Protein Albumin TSH 0.69 Urine Color Urine Appearance Urine pH Ur Specific [place] Urine Protein Urine Glucose (UA) Urine Ketones Urine Blood Urine Nitrite Ur Leukocyte Esterase Urine RBC Urine WBC Ur Squamous Epith Cells Urine Bacteria Hyaline Casts Urine Opiates Screen Ur Buprenorphine Scrn Ur Oxycodone Screen Urine Methadone Screen Urine Fentanyl Screen Ur Barbiturates Screen Ur Phencyclidine Scrn Ur Amphetamines Screen U Benzodiazepines Scrn Urine Cocaine Screen U Marijuana (THC) Screen 07/21/24 07/21/24 07/21/24 14:40 15:08 15:41 WBC RBC Hgb Hct MCV MCH MCHC RDW Plt Count MPV Immature Gran % (Auto) Neut % (Auto) Lymph % (Auto) [place] % (Auto) Eos % (Auto) Baso % (Auto) Lymph # (Auto) [place] # (Auto) Eos # (Auto) Baso # (Auto) Abs Immat Gran (auto) Absolute Neuts (auto) Absolute Nucleated RBC Nucleated RBC % (auto) Neutrophils % (Manual) Band Neutrophils % Lymphocytes % (Manual) Atypical Lymphs % (Man) Monocytes % (Manual) Basophils % (Manual) Metamyelocytes % Myelocytes % Abs Neuts (Manual) Lymphocytes # (Manual) Nucleated RBCs Toxic Vacuolation Dohle Bodies Platelet Estimate Large Platelets Plt Morphology Comment RBC Morphology Hypochromasia [place] Cells Acanthocytes (Spur) VBG pH VBG pCO2 VBG pO2 VBG HCO3 VBG O2 Saturation VBG Base Excess Sodium Potassium Chloride Carbon Dioxide Anion Gap BUN Creatinine Estim Creat Clear Calc Estimated GFR POC Glucose 491 H* 512 H* 466 H* Random Glucose Lactic Acid Lactic Acid F/U @ 2Hr Lactic Acid F/U @ 4Hr Calcium Phosphorus Magnesium Total Bilirubin AST ALT Alkaline Phosphatase Troponin I High Sens Total Protein Albumin TSH Urine Color Urine Appearance Urine pH Ur Specific [place] Urine Protein Urine Glucose (UA) Urine Ketones Urine Blood Urine Nitrite Ur Leukocyte Esterase Urine RBC Urine WBC Ur Squamous Epith Cells Urine Bacteria Hyaline Casts Urine Opiates Screen Ur Buprenorphine Scrn Ur Oxycodone Screen Urine Methadone Screen Urine Fentanyl Screen Ur Barbiturates Screen Ur Phencyclidine Scrn Ur Amphetamines Screen U Benzodiazepines Scrn Urine Cocaine Screen U Marijuana (THC) Screen 07/21/24 07/21/24 07/21/24 16:04 17:02 17:58 WBC RBC Hgb Hct MCV MCH MCHC RDW Plt Count MPV Immature Gran % (Auto) Neut % (Auto) Lymph % (Auto) [place] % (Auto) Eos % (Auto) Baso % (Auto) Lymph # (Auto) [place] # (Auto) Eos # (Auto) Baso # (Auto) Abs Immat Gran (auto) Absolute Neuts (auto) Absolute Nucleated RBC Nucleated RBC % (auto) Neutrophils % (Manual) Band Neutrophils % Lymphocytes % (Manual) Atypical Lymphs % (Man) Monocytes % (Manual) Basophils % (Manual) Metamyelocytes % Myelocytes % Abs Neuts (Manual) Lymphocytes # (Manual) Nucleated RBCs Toxic Vacuolation Dohle Bodies Platelet Estimate Large Platelets Plt Morphology Comment RBC Morphology Hypochromasia Manjeet Cells Acanthocytes (Spur) VBG pH VBG pCO2 VBG pO2 VBG HCO3 VBG O2 Saturation VBG Base Excess Sodium Potassium Chloride Carbon Dioxide Anion Gap BUN Creatinine Estim Creat Clear Calc Estimated GFR POC Glucose 429 H* 457 H* 394 H* Random Glucose Lactic Acid Lactic Acid F/U @ 2Hr Lactic Acid F/U @ 4Hr Calcium Phosphorus Magnesium Total Bilirubin AST ALT Alkaline Phosphatase Troponin I High Sens Total Protein Albumin TSH Urine Color Urine Appearance Urine pH Ur Specific [place] Urine Protein Urine Glucose (UA) Urine Ketones Urine Blood Urine Nitrite Ur Leukocyte Esterase Urine RBC Urine WBC Ur Squamous Epith Cells Urine Bacteria Hyaline Casts Urine Opiates Screen Ur Buprenorphine Scrn Ur Oxycodone Screen Urine Methadone Screen Urine Fentanyl Screen Ur Barbiturates Screen Ur Phencyclidine Scrn Ur Amphetamines Screen U Benzodiazepines Scrn Urine Cocaine Screen U Marijuana (THC) Screen 07/21/24 07/21/24 07/21/24 18:59 19:58 20:05 WBC RBC Hgb Hct MCV MCH MCHC RDW Plt Count MPV Immature Gran % (Auto) Neut % (Auto) Lymph % (Auto) [place] % (Auto) Eos % (Auto) Baso % (Auto) Lymph # (Auto) [place] # (Auto) Eos # (Auto) Baso # (Auto) Abs Immat Gran (auto) Absolute Neuts (auto) Absolute Nucleated RBC Nucleated RBC % (auto) Neutrophils % (Manual) Band Neutrophils % Lymphocytes % (Manual) Atypical Lymphs % (Man) Monocytes % (Manual) Basophils % (Manual) Metamyelocytes % Myelocytes % Abs Neuts (Manual) Lymphocytes # (Manual) Nucleated RBCs Toxic Vacuolation Dohle Bodies Platelet Estimate Large Platelets Plt Morphology Comment RBC Morphology Hypochromasia Manjeet Cells Acanthocytes (Spur) VBG pH VBG pCO2 VBG pO2 VBG HCO3 VBG O2 Saturation VBG Base Excess Sodium 157 H Potassium 3.5 Chloride 126 H Carbon Dioxide 14 L Anion Gap 21 H BUN 70 H Creatinine 1.84 H Estim Creat Clear Calc 15.4 Estimated GFR 28 POC Glucose 351 H* 305 H Random Glucose 396 H* Lactic Acid Lactic Acid F/U @ 2Hr Lactic Acid F/U @ 4Hr Calcium 8.4 D Phosphorus 0.9 L* Magnesium 2.7 H Total Bilirubin AST ALT Alkaline Phosphatase Troponin I High Sens Total Protein Albumin 3.8 TSH Urine Color Urine Appearance Urine pH Ur Specific [place] Urine Protein Urine Glucose (UA) Urine Ketones Urine Blood Urine Nitrite Ur Leukocyte Esterase Urine RBC Urine WBC Ur Squamous Epith Cells Urine Bacteria Hyaline Casts Urine Opiates Screen Ur Buprenorphine Scrn Ur Oxycodone Screen Urine Methadone Screen Urine Fentanyl Screen Ur Barbiturates Screen Ur Phencyclidine Scrn Ur Amphetamines Screen U Benzodiazepines Scrn Urine Cocaine Screen U Marijuana (THC) Screen 07/21/24 07/21/24 07/21/24 21:06 22:07 23:03 WBC RBC Hgb Hct MCV MCH MCHC RDW Plt Count MPV Immature Gran % (Auto) Neut % (Auto) Lymph % (Auto) [place] % (Auto) Eos % (Auto) Baso % (Auto) Lymph # (Auto) [place] # (Auto) Eos # (Auto) Baso # (Auto) Abs Immat Gran (auto) Absolute Neuts (auto) Absolute Nucleated RBC Nucleated RBC % (auto) Neutrophils % (Manual) Band Neutrophils % Lymphocytes % (Manual) Atypical Lymphs % (Man) Monocytes % (Manual) Basophils % (Manual) Metamyelocytes % Myelocytes % Abs Neuts (Manual) Lymphocytes # (Manual) Nucleated RBCs Toxic Vacuolation Dohle Bodies Platelet Estimate Large Platelets Plt Morphology Comment RBC Morphology Hypochromasia Manjeet Cells Acanthocytes (Spur) VBG pH VBG pCO2 VBG pO2 VBG HCO3 VBG O2 Saturation VBG Base Excess Sodium Potassium Chloride Carbon Dioxide Anion Gap BUN Creatinine Estim Creat Clear Calc Estimated GFR POC Glucose 271 H 214 H 153 H Random Glucose Lactic Acid Lactic Acid F/U @ 2Hr Lactic Acid F/U @ 4Hr Calcium Phosphorus Magnesium Total Bilirubin AST ALT Alkaline Phosphatase Troponin I High Sens Total Protein Albumin TSH Urine Color Urine Appearance Urine pH Ur Specific [place] Urine Protein Urine Glucose (UA) Urine Ketones Urine Blood Urine Nitrite Ur Leukocyte Esterase Urine RBC Urine WBC Ur Squamous Epith Cells Urine Bacteria Hyaline Casts Urine Opiates Screen Ur Buprenorphine Scrn Ur Oxycodone Screen Urine Methadone Screen Urine Fentanyl Screen Ur Barbiturates Screen Ur Phencyclidine Scrn Ur Amphetamines Screen U Benzodiazepines Scrn Urine Cocaine Screen U Marijuana (THC) Screen 07/21/24 07/21/24 07/22/24 23:43 23:48 00:05 WBC RBC Hgb Hct MCV MCH MCHC RDW Plt Count MPV Immature Gran % (Auto) Neut % (Auto) Lymph % (Auto) [place] % (Auto) Eos % (Auto) Baso % (Auto) Lymph # (Auto) [place] # (Auto) Eos # (Auto) Baso # (Auto) Abs Immat Gran (auto) Absolute Neuts (auto) Absolute Nucleated RBC Nucleated RBC % (auto) Neutrophils % (Manual) Band Neutrophils % Lymphocytes % (Manual) Atypical Lymphs % (Man) Monocytes % (Manual) Basophils % (Manual) Metamyelocytes % Myelocytes % Abs Neuts (Manual) Lymphocytes # (Manual) Nucleated RBCs Toxic Vacuolation Dohle Bodies Platelet Estimate Large Platelets Plt Morphology Comment RBC Morphology Hypochromasia Manjeet Cells Acanthocytes (Spur) VBG pH 7.40 VBG pCO2 24 VBG pO2 117 VBG HCO3 15 L VBG O2 Saturation 99.0 VBG Base Excess -7.7 Sodium 162 H* Potassium 3.4 Chloride 130 H Carbon Dioxide 16 L Anion Gap 19 BUN 68 H Creatinine 1.66 H Estim Creat Clear Calc 17.1 Estimated GFR 31 POC Glucose 98 Random Glucose 227 H Lactic Acid Lactic Acid F/U @ 2Hr Lactic Acid F/U @ 4Hr Calcium 8.2 L Phosphorus Magnesium Total Bilirubin AST ALT Alkaline Phosphatase Troponin I High Sens Total Protein Albumin TSH Urine Color Urine Appearance Urine pH Ur Specific [place] Urine Protein Urine Glucose (UA) Urine Ketones Urine Blood Urine Nitrite Ur Leukocyte Esterase Urine RBC Urine WBC Ur Squamous Epith Cells Urine Bacteria Hyaline Casts Urine Opiates Screen Ur Buprenorphine Scrn Ur Oxycodone Screen Urine Methadone Screen Urine Fentanyl Screen Ur Barbiturates Screen Ur Phencyclidine Scrn Ur Amphetamines Screen U Benzodiazepines Scrn Urine Cocaine Screen U Marijuana (THC) Screen 07/22/24 07/22/24 07/22/24 01:02 02:04 02:07 WBC RBC Hgb Hct MCV MCH MCHC RDW Plt Count MPV Immature Gran % (Auto) Neut % (Auto) Lymph % (Auto) [place] % (Auto) Eos % (Auto) Baso % (Auto) Lymph # (Auto) [place] # (Auto) Eos # (Auto) Baso # (Auto) Abs Immat Gran (auto) Absolute Neuts (auto) Absolute Nucleated RBC Nucleated RBC % (auto) Neutrophils % (Manual) Band Neutrophils % Lymphocytes % (Manual) Atypical Lymphs % (Man) Monocytes % (Manual) Basophils % (Manual) Metamyelocytes % Myelocytes % Abs Neuts (Manual) Lymphocytes # (Manual) Nucleated RBCs Toxic Vacuolation Dohle Bodies Platelet Estimate Large Platelets Plt Morphology Comment RBC Morphology Hypochromasia Manjeet Cells Acanthocytes (Spur) VBG pH VBG pCO2 VBG pO2 VBG HCO3 VBG O2 Saturation VBG Base Excess Sodium Potassium Chloride Carbon Dioxide Anion Gap BUN Creatinine Estim Creat Clear Calc Estimated GFR POC Glucose 101 106 Random Glucose Lactic Acid 3.5 H* Lactic Acid F/U @ 2Hr Lactic Acid F/U @ 4Hr Calcium Phosphorus Magnesium Total Bilirubin AST ALT Alkaline Phosphatase Troponin I High Sens Total Protein Albumin TSH Urine Color Urine Appearance Urine pH Ur Specific [place] Urine Protein Urine Glucose (UA) Urine Ketones Urine Blood Urine Nitrite Ur Leukocyte Esterase Urine RBC Urine WBC Ur Squamous Epith Cells Urine Bacteria Hyaline Casts Urine Opiates Screen Ur Buprenorphine Scrn Ur Oxycodone Screen Urine Methadone Screen Urine Fentanyl Screen Ur Barbiturates Screen Ur Phencyclidine Scrn Ur Amphetamines Screen U Benzodiazepines Scrn Urine Cocaine Screen U Marijuana (THC) Screen 07/22/24 07/22/24 07/22/24 03:00 03:32 04:05 WBC RBC Hgb Hct MCV MCH MCHC RDW Plt Count MPV Immature Gran % (Auto) Neut % (Auto) Lymph % (Auto) [place] % (Auto) Eos % (Auto) Baso % (Auto) Lymph # (Auto) [place] # (Auto) Eos # (Auto) Baso # (Auto) Abs Immat Gran (auto) Absolute Neuts (auto) Absolute Nucleated RBC Nucleated RBC % (auto) Neutrophils % (Manual) Band Neutrophils % Lymphocytes % (Manual) Atypical Lymphs % (Man) Monocytes % (Manual) Basophils % (Manual) Metamyelocytes % Myelocytes % Abs Neuts (Manual) Lymphocytes # (Manual) Nucleated RBCs Toxic Vacuolation Dohle Bodies Platelet Estimate Large Platelets Plt Morphology Comment RBC Morphology Hypochromasia Manjeet Cells Acanthocytes (Spur) VBG pH VBG pCO2 VBG pO2 VBG HCO3 VBG O2 Saturation VBG Base Excess Sodium Potassium Chloride Carbon Dioxide Anion Gap BUN Creatinine Estim Creat Clear Calc Estimated GFR POC Glucose 93 81 Random Glucose Lactic Acid Lactic Acid F/U @ 2Hr Lactic Acid F/U @ 4Hr Calcium Phosphorus Magnesium Total Bilirubin AST ALT Alkaline Phosphatase Troponin I High Sens Total Protein Albumin TSH Urine Color Yellow Urine Appearance Cloudy Urine pH 5.5 Ur Specific [place] 1.015 Urine Protein 100 (2+) H Urine Glucose (UA) 250 H Urine Ketones Negative Urine Blood Large (3+) H Urine Nitrite Negative Ur Leukocyte Esterase Moderate (2+) H Urine RBC >20 H Urine WBC >50 H Ur Squamous Epith Cells >20 Urine Bacteria 1+ Hyaline Casts 3-5 Urine Opiates Screen Not Detected Ur Buprenorphine Scrn Not Detected Ur Oxycodone Screen Not Detected Urine Methadone Screen Not Detected Urine Fentanyl Screen Not Detected Ur Barbiturates Screen Not Detected Ur Phencyclidine Scrn Not Detected Ur Amphetamines Screen Not Detected U Benzodiazepines Scrn Not Detected Urine Cocaine Screen Not Detected U Marijuana (THC) Screen Not Detected 07/22/24 07/22/24 07/22/24 04:23 05:10 06:45 WBC 2.1 L RBC 2.78 L D Hgb 7.7 L D Hct 24.5 L D MCV 88.1 MCH 27.7 MCHC 31.4 RDW 15.9 Plt Count 57 L MPV 12.0 Immature Gran % (Auto) Cancelled Neut % (Auto) Cancelled Lymph % (Auto) Cancelled [place] % (Auto) Cancelled Eos % (Auto) Cancelled Baso % (Auto) Cancelled Lymph # (Auto) Cancelled [place] # (Auto) Cancelled Eos # (Auto) Cancelled Baso # (Auto) Cancelled Abs Immat Gran (auto) Cancelled Absolute Neuts (auto) Cancelled Absolute Nucleated RBC 0.000 Nucleated RBC % (auto) 0.0 Neutrophils % (Manual) 59 Band Neutrophils % 23 H Lymphocytes % (Manual) 14 L Atypical Lymphs % (Man) Monocytes % (Manual) 1 L Basophils % (Manual) 1 Metamyelocytes % 2 Myelocytes % Abs Neuts (Manual) 1.7 L Lymphocytes # (Manual) 0.3 L Nucleated RBCs 1 H Toxic Vacuolation PRESENT Dohle Bodies PRESENT Platelet Estimate DECREASED Large Platelets PRESENT Plt Morphology Comment NOTED RBC Morphology NOTED Hypochromasia 1+ (5-14) Manjeet Cells 1+ (0-2) Acanthocytes (Spur) 1+ (0-2) VBG pH 7.41 VBG pCO2 29 VBG pO2 39 VBG HCO3 19 L VBG O2 Saturation 71.0 VBG Base Excess -4.7 Sodium 162 H* Potassium 3.1 L Chloride 129 H Carbon Dioxide 18 L Anion Gap 18 BUN 67 H Creatinine 1.49 H Estim Creat Clear Calc 19.0 Estimated GFR 36 POC Glucose 94 Random Glucose 144 H Lactic Acid Lactic Acid F/U @ 2Hr 4.5 H* Lactic Acid F/U @ 4Hr 3.9 H* Calcium 8.4 Phosphorus 2.5 L Magnesium 2.3 Total Bilirubin 1.5 H AST 85 H ALT 22 Alkaline Phosphatase 182 H Troponin I High Sens Total Protein 5.5 L Albumin 3.7 TSH Urine Color Urine Appearance Urine pH Ur Specific [place] Urine Protein Urine Glucose (UA) Urine Ketones Urine Blood Urine Nitrite Ur Leukocyte Esterase Urine RBC Urine WBC Ur Squamous Epith Cells Urine Bacteria Hyaline Casts Urine Opiates Screen Ur Buprenorphine Scrn Ur Oxycodone Screen Urine Methadone Screen Urine Fentanyl Screen Ur Barbiturates Screen Ur Phencyclidine Scrn Ur Amphetamines Screen U Benzodiazepines Scrn Urine Cocaine Screen U Marijuana (THC) Screen 07/22/24 11:40 WBC RBC Hgb Hct MCV MCH MCHC RDW Plt Count MPV Immature Gran % (Auto) Neut % (Auto) Lymph % (Auto) [place] % (Auto) Eos % (Auto) Baso % (Auto) Lymph # (Auto) [place] # (Auto) Eos # (Auto) Baso # (Auto) Abs Immat Gran (auto) Absolute Neuts (auto) Absolute Nucleated RBC Nucleated RBC % (auto) Neutrophils % (Manual) Band Neutrophils % Lymphocytes % (Manual) Atypical Lymphs % (Man) Monocytes % (Manual) Basophils % (Manual) Metamyelocytes % Myelocytes % Abs Neuts (Manual) Lymphocytes # (Manual) Nucleated RBCs Toxic Vacuolation Dohle Bodies Platelet Estimate Large Platelets Plt Morphology Comment RBC Morphology Hypochromasia Manjeet Cells Acanthocytes (Spur) VBG pH VBG pCO2 VBG pO2 VBG HCO3 VBG O2 Saturation VBG Base Excess Sodium Potassium Chloride Carbon Dioxide Anion Gap BUN Creatinine Estim Creat Clear Calc Estimated GFR POC Glucose 331 H Random Glucose Lactic Acid Lactic Acid F/U @ 2Hr Lactic Acid F/U @ 4Hr Calcium Phosphorus Magnesium Total Bilirubin AST ALT Alkaline Phosphatase Troponin I High Sens Total Protein Albumin TSH Urine Color Urine Appearance Urine pH Ur Specific [place] Urine Protein Urine Glucose (UA) Urine Ketones Urine Blood Urine Nitrite Ur Leukocyte Esterase Urine RBC Urine WBC Ur Squamous Epith Cells Urine Bacteria Hyaline Casts Urine Opiates Screen Ur Buprenorphine Scrn Ur Oxycodone Screen Urine Methadone Screen Urine Fentanyl Screen Ur Barbiturates Screen Ur Phencyclidine Scrn Ur Amphetamines Screen U Benzodiazepines Scrn Urine Cocaine Screen U Marijuana (THC) Screen Progress Note: A&P Assessment and plan (1) UTI (urinary tract infection): Status: Acute (2) Septic shock: Status: Acute (3) Acute renal failure: Status: Acute (4) Hermansky-Pudlak syndrome: Status: Acute (5) Cachexia: Status: Acute (6) Ketosis: Status: Acute Plan Assessment: 59-year-old lady with underlying musculoskeletal ox syndrome, developmental delay, diabetes mellitus admitted with diarrhea and hyperglycemic hyperosmolar state Plan: Neuro: No acute issues. Cardiac: Septic shock, continue to titrate off pressor support as tolerated. Pulmonary: No acute issues. Renal: Acute renal failure. Non oliguric. Continue to monitor renal indices and urine output. Endo: Hyperglycemia/small state, transitioned from insulin drip to subcutaneous insulin. GI: No acute issues. ID: Septic shock with likely source. Continue broad-spectrum antibiotics. Heme/Onc: Thrombocytopenia likely secondary to septic shock. Psych: No acute issues. Miscellaneous: No acute issues. Prophylaxis: Pneumatic compression Diet: Tube feeds Critical care time spent: 60 minutes Quality Stroke Does the patient have a stroke diagnosis?: No VTE Prior VTE?: No VTE Risk Level:: Medical - moderate - high VTE Device Contraindication: Treatment Not Indicated VTE Drug Contraindication: N/A - Med Ordered
--- NOTE | 2024-07-22 13:19 | MHC.CM.PN ---
IMM DELIVERED TO SISTER MIKI VIA VM, WHITE COPY TO BE LEFT AT BEDSIDE. CM REQUESTS RETURN CALL TO COMPLETE CM ASSESSMENT. CM WILL CONTINUE TO FOLLOW.
[2024-07-22 15:10] LABS: Anion Gap 15 (12-20); Blood Urea Nitrogen 50 mg/dL (9-16); Calcium 7.1 mg/dL (8.4-10.2); Carbon Dioxide 19 mmol/L (22-29); Chloride 124 mmol/L (96-108); Creatinine Clr Calc Pharmacy 21.7; Estimated Glomerular Filt Rate 41; Glucose Random 462 mg/dL (60-115); Potassium 4.2 mmol/L (3.3-5.1); Sodium 154 mmol/L (135-145)
[2024-07-22] MEDS: Norepinephrine Bitartrate/D5W 8 MG/250 ML PLAST..BAG 17.73 MG IVCONT (16:35)
[2024-07-22 16:37] LABS: Glucose, Whole Blood 338 mg/dL (60-115)
[2024-07-22 17:24] LABS: Vancomycin Random 19.7 mcg/mL (15-20)
--- NOTE | 2024-07-22 17:38 | HE.PHANOTE ---
Re Vanc Random came back at 19.7, SCr slightly improved. Based on current kinetics, will start 500mg q24h for a projected AUC of 449 mg/L and a trough of 14.3mg/L. Next level before the next dose in the AM to make sure it clears well.
[2024-07-22] MEDS: cefTRIAXone sodium 1 GM in 0.9 % Sodium Chloride 50 ML IV (19:55)
[2024-07-22 20:04] LABS: Hematocrit 27.2 % (37.0-47.0); Hemoglobin 8.7 g/dl (12.0-16.0); Mean Corpuscular Hemoglobin 27.8 pg (27.0-33.0); Mean Corpuscular Volume 86.9 fL (80.0-98.0); Mean Platelet Volume 12.3 fL (9.4-12.3); Red Blood Count 3.13 X10*6/uL (4.20-5.50); Red Cell Distribution Width 16.2 % (11.0-16.0)
[2024-07-22 20:05] LABS: Platelet Count 55 X10*3/uL (160-400); WBC ABN SCTR FOR CBC 1
[2024-07-22 20:20] LABS: Anion Gap 12 (12-20); Blood Urea Nitrogen 43 mg/dL (9-16); Carbon Dioxide 21 mmol/L (22-29); Chloride 126 mmol/L (96-108); Creatinine Clr Calc Pharmacy 24.1; Estimated Glomerular Filt Rate 47; Glucose Random 291 mg/dL (60-115); Magnesium 2.1 mg/dL (1.6-2.6); Phosphorus 2.1 mg/dL (2.7-4.5); Potassium 3.5 mmol/L (3.3-5.1); Sodium 155 mmol/L (135-145)
[2024-07-22 20:36] LABS: Band Neutrophils Percent 8 % (3-5); Eosinophils Percent Manual 1 % (0-4); Lymphocytes Absolute Manual 0.5 X10*3/uL (1.2-4.9); Lymphocytes Percent Manual 13 % (20-40); Neutrophils Absolute Manual 3.3 X10*3/uL (2.0-8.3); Neutrophils Percent Manual 78 % (45-73); Platelet Estimate DECREASED (NORMAL); Platelet Morphology Comment NORMAL; RBC Morphology NORMAL; White Blood Count 3.8 X10*3/uL (4.8-10.8)
[2024-07-22 20:51] LABS: Albumin Level 3.2 g/dL (3.5-5.0)
[2024-07-22] MEDS: Calcium Gluconate/NaCl,Iso-Osm 2 GM/100 ML PLAST..BAG IV (21:18)
[2024-07-22 23:25] LABS: Glucose, Whole Blood 146 mg/dL (60-115)
[2024-07-22] MEDS: Acetaminophen Oral Liquid 650 MG/20.3 ML SOLUTION PO (23:43)
[2024-07-23] VITALS (42 sets, daily range): BP systolic 72–152; BP diastolic 39–92; PULSE 82–137; RESP 16–28; TEMP 36.8–39.3; O2SAT 91–98
[2024-07-23] MEDS: Potassium Phosphate/NS 15 MMOL/250 ML PLAST..BAG 62.5 MMOL IV (01:24)
[2024-07-23] MEDS: Dextrose 5 % 1,000 ML 75 ML IVCONT (02:00)
[2024-07-23] MEDS: Albumin Human 25 % 100 ML IV ×3 (02:46→15:16)
[2024-07-23 05:13] LABS: VBG Base Excess -3.4 mmol/L; VBG HCO3 19 mmol/L (22-26); VBG pCO2 28 mmHg; VBG pH 7.45 (7.32-7.43); VBG pO2 48 mmHg
[2024-07-23 05:41] LABS: Hemoglobin 7.6 g/dl (12.0-16.0); Mean Corpuscular HGB Conc 31.7 g/dl (31.0-35.0); Mean Corpuscular Hemoglobin 27.2 pg (27.0-33.0); Mean Platelet Volume 12.9 fL (9.4-12.3); Red Blood Count 2.79 X10*6/uL (4.20-5.50)
[2024-07-23 05:45] LABS: Platelet Count 43 X10*3/uL (160-400); WBC ABN SCTR FOR CBC 1; White Blood Count 2.2 X10*3/uL (4.8-10.8)
[2024-07-23 06:05] LABS: Venous Blood Gas Refer to POC result
[2024-07-23 06:12] LABS: Band Neutrophils Percent 11 % (3-5); Lymphocytes Absolute Manual 0.4 X10*3/uL (1.2-4.9); Lymphocytes Percent Manual 16 % (20-40); Metamyelocytes Percent 1 %; Neutrophils Absolute Manual 1.8 X10*3/uL (2.0-8.3); Neutrophils Percent Manual 72 % (45-73)
[2024-07-23 06:13] LABS: Acanthocytes 1+ (0-2) /OIF; Hypochromasia 2+ (15-30) /OIF; Platelet Estimate DECREASED (NORMAL); Platelet Morphology Comment NORMAL; RBC Morphology NOTED; Schistocytes 1+ (0-2) /OIF
[2024-07-23 06:14] LABS: Burr Cells 1+ (0-2) /OIF; Dohle Bodies PRESENT; Large Platelet PRESENT; Toxic Granulation PRESENT; Toxic Vacuolation PRESENT
[2024-07-23 06:16] LABS: Alanine Aminotransferase 27 U/L (0-31); Albumin Level 3.6 g/dL (3.5-5.0); Alkaline Phosphatase 191 U/L (39-117); Anion Gap 15 (12-20); Aspartate Amino Transferase 59 U/L (5-31); Bilirubin Total 2.7 mg/dL (0.0-1.0); Blood Urea Nitrogen 39 mg/dL (9-16); Carbon Dioxide 19 mmol/L (22-29); Chloride 125 mmol/L (96-108); Creatinine Clr Calc Pharmacy 29.9; Estimated Glomerular Filt Rate 60; Glucose Random 123 mg/dL (60-115); Magnesium 1.9 mg/dL (1.6-2.6); Phosphorus 4.4 mg/dL (2.7-4.5); Potassium 3.8 mmol/L (3.3-5.1); Sodium 155 mmol/L (135-145)
[2024-07-23 06:17] LABS: Vancomycin Random 15.4 mcg/mL (15-20)
[2024-07-23 06:17] LABS: Glucose, Whole Blood 97 mg/dL (60-115)
--- NOTE | 2024-07-23 06:23 | HE.PHANOTE ---
VANCO Dosing at 750mg Q24h per inmproved renal function and therapeutic trough of 15.4 after load. Predicted trough 15.7, predicted AUC 529. Next trough to be drawn 07/24 @0600.
[2024-07-23] MEDS: Calcium Gluconate/NaCl,Iso-Osm 1 GM/50 ML PLAST..BAG IV (07:54)
[2024-07-23] MEDS: vancomycin HCL 750 MG in 0.9 % Sodium Chloride 250 ML 265 MG IV (07:54)
[2024-07-23] MEDS: Norepinephrine Bitartrate/D5W 8 MG/250 ML PLAST..BAG 15.44 MG IVCONT (08:51)
[2024-07-23] MEDS: levETIRAcetam 250 MG in 0.9 % Sodium Chloride 100 ML 410 MG IV ×2 (09:46→21:29)
--- NOTE | 2024-07-23 12:05 | P.PNCC_ITS ---
Subjective Subjective Date of Service: 07/23/24 Interval History: 59-year-old lady with underlying Hermansky Pudlak syndrome, diabetes mellitus, developmental delay, hypertension admitted on 07/21/2024 with complains of diarrhea and confusion. On ER evaluation patient with elevated serum ketones, but no acidosis, started on insulin drip and admitted to the intensive care unit. Further hospital course significant for development of septic shock with likely source requiring pressor support. Patient pulled out her NG tube overnight. Critical Care Time (minutes): 45 Physical Exam 2 Vital Signs: Vital Signs: Last Vital Signs Temp 100.2 F 07/23/24 11:00 Pulse 120 H 07/23/24 11:00 Resp 27 H 07/23/24 11:00 BP 95/79 07/23/24 11:00 Pulse Ox 93 07/23/24 11:00 O2 Del Method Room Air 07/23/24 11:00 O2 Flow Rate 1 07/23/24 10:00 BMI result Body Mass Index 11.9 Const: General: no acute distress, awake, confusion and other O rientation/consciousness: confusion Eyes: Sclerae: sclerae normal EOM: EOMs intact bilaterally Neck: Neck: Yes no lymphadenopathy, Yes trachea midline and Yes supple Resp: Effort & Inspection: normal respiratory effort and no respiratory distress Auscultation: clear to auscultation bilaterally Cardio: Rate: tachycardic Rhythm: regular rhythm Heart sounds: no gallops, no murmurs and no rubs GI: Palpation (GI): Soft to palpation and Other GI palpation findings present ( Nontender) Auscultation: normal bowel sounds Neuro: General: confusion Extrem: General: Yes no pedal edema, No clubbing and No cyanosis Objective Data Labs 07/23/24 05:07 07/23/24 05:07 Labs: Laboratory Results - last 24 hr 07/22/24 07/22/24 07/22/24 14:33 16:34 17:01 WBC RBC Hgb Hct MCV MCH MCHC RDW Plt Count MPV Immature Gran % (Auto) Neut % (Auto) Lymph % (Auto) [place] % (Auto) Eos % (Auto) Baso % (Auto) Lymph # (Auto) [place] # (Auto) Eos # (Auto) Baso # (Auto) Abs Immat Gran (auto) Absolute Neuts (auto) Absolute Nucleated RBC Nucleated RBC % (auto) Neutrophils % (Manual) Band Neutrophils % Lymphocytes % (Manual) Eosinophils % (Manual) Metamyelocytes % Abs Neuts (Manual) Lymphocytes # (Manual) Toxic Granulation Toxic Vacuolation Dohle Bodies Platelet Estimate Large Platelets Plt Morphology Comment RBC Morphology Hypochromasia [place] Cells Acanthocytes (Spur) Schistocytes VBG pH VBG pCO2 VBG pO2 VBG HCO3 VBG O2 Saturation VBG Base Excess Sodium 154 H Potassium 4.2 D Chloride 124 H Carbon Dioxide 19 L Anion Gap 15 BUN 50 H Creatinine 1.31 Estim Creat Clear Calc 21.7 Estimated GFR 41 POC Glucose 338 H Random Glucose 462 H* Calcium 7.1 L D Phosphorus Magnesium Total Bilirubin AST ALT Alkaline Phosphatase Total Protein Albumin Random Vancomycin 19.7 07/22/24 07/22/24 07/23/24 19:50 23:19 05:03 WBC 3.8 L RBC 3.13 L Hgb 8.7 L Hct 27.2 L MCV 86.9 MCH 27.8 MCHC 32.0 RDW 16.2 H Plt Count 55 L MPV 12.3 Immature Gran % (Auto) Cancelled Neut % (Auto) Cancelled Lymph % (Auto) Cancelled [place] % (Auto) Cancelled Eos % (Auto) Cancelled Baso % (Auto) Cancelled Lymph # (Auto) Cancelled [place] # (Auto) Cancelled Eos # (Auto) Cancelled Baso # (Auto) Cancelled Abs Immat Gran (auto) Cancelled Absolute Neuts (auto) Cancelled Absolute Nucleated RBC 0.000 Nucleated RBC % (auto) 0.0 Neutrophils % (Manual) 78 H Band Neutrophils % 8 H Lymphocytes % (Manual) 13 L Eosinophils % (Manual) 1 Metamyelocytes % Abs Neuts (Manual) 3.3 Lymphocytes # (Manual) 0.5 L Toxic Granulation Toxic Vacuolation Dohle Bodies Platelet Estimate DECREASED Large Platelets Plt Morphology Comment NORMAL RBC Morphology NORMAL Hypochromasia Manjeet Cells Acanthocytes (Spur) Schistocytes VBG pH 7.45 H VBG pCO2 28 VBG pO2 48 VBG HCO3 19 L VBG O2 Saturation 78.0 VBG Base Excess -3.4 Sodium 155 H Potassium 3.5 Chloride 126 H Carbon Dioxide 21 L Anion Gap 12 BUN 43 H Creatinine 1.18 Estim Creat Clear Calc 24.1 Estimated GFR 47 POC Glucose 146 H Random Glucose 291 H Calcium 7.0 L Phosphorus 2.1 L Magnesium 2.1 Total Bilirubin AST ALT Alkaline Phosphatase Total Protein Albumin 3.2 L Random Vancomycin 07/23/24 07/23/24 05:07 06:14 WBC 2.2 L RBC 2.79 L Hgb 7.6 L Hct 24.0 L MCV 86.0 MCH 27.2 MCHC 31.7 RDW 16.0 Plt Count 43 L MPV 12.9 H Immature Gran % (Auto) Cancelled Neut % (Auto) Cancelled Lymph % (Auto) Cancelled [place] % (Auto) Cancelled Eos % (Auto) Cancelled Baso % (Auto) Cancelled Lymph # (Auto) Cancelled [place] # (Auto) Cancelled Eos # (Auto) Cancelled Baso # (Auto) Cancelled Abs Immat Gran (auto) Cancelled Absolute Neuts (auto) Cancelled Absolute Nucleated RBC 0.000 Nucleated RBC % (auto) 0.0 Neutrophils % (Manual) 72 Band Neutrophils % 11 H Lymphocytes % (Manual) 16 L Eosinophils % (Manual) Metamyelocytes % 1 Abs Neuts (Manual) 1.8 L Lymphocytes # (Manual) 0.4 L Toxic Granulation PRESENT Toxic Vacuolation PRESENT Dohle Bodies PRESENT Platelet Estimate DECREASED Large Platelets PRESENT Plt Morphology Comment NORMAL RBC Morphology NOTED Hypochromasia 2+ (15-30) Vicco Cells 1+ (0-2) Acanthocytes (Spur) 1+ (0-2) Schistocytes 1+ (0-2) VBG pH VBG pCO2 VBG pO2 VBG HCO3 VBG O2 Saturation VBG Base Excess Sodium 155 H Potassium 3.8 Chloride 125 H Carbon Dioxide 19 L Anion Gap 15 BUN 39 H Creatinine 0.95 Estim Creat Clear Calc 29.9 Estimated GFR 60 POC Glucose 97 Random Glucose 123 H Calcium 8.0 L D Phosphorus 4.4 Magnesium 1.9 Total Bilirubin 2.7 H AST 59 H ALT 27 Alkaline Phosphatase 191 H Total Protein 5.0 L Albumin 3.6 Random Vancomycin 15.4 Microbiology Microbiology Results: Microbiology 07/21/24 17:54 Blood - Venous Blood Culture - Preliminary No growth after 24 hours. 07/21/24 17:54 Blood - Venous Blood Culture - Preliminary No growth after 24 hours. Progress Note: A&P Assessment and plan (1) UTI (urinary tract infection): Status: Acute (2) Septic shock: Status: Acute (3) Acute renal failure: Status: Acute (4) Hermansky-Pudlak syndrome: Status: Acute (5) Hypernatremia: Status: Acute (6) Intravascular volume depletion: Status: Acute (7) Acute kidney injury: Status: Acute (8) Cachexia: Status: Acute Plan Assessment: 59-year-old lady with underlying musculoskeletal ox syndrome, developmental delay, diabetes mellitus admitted with diarrhea and hyperglycemic hyperosmolar state Plan: Neuro: No acute issues. Cardiac: Septic shock, continue to titrate off pressor support as tolerated. Pulmonary: No acute issues. Renal: Acute renal failure. Non oliguric. Improving. Hypernatremia improving with free water. Continue to monitor renal indices and urine output. Endo: Hyperglycemia/small state, transitioned from insulin drip to subcutaneous insulin. GI: No acute issues. ID: Septic shock with likely source. Continue broad-spectrum antibiotics. Heme/Onc: Thrombocytopenia likely secondary to septic shock. Psych: No acute issues. Miscellaneous: No acute issues. Prophylaxis: Pneumatic compression Diet: Tube feeds Critical care time spent: 45 minutes Quality Stroke Does the patient have a stroke diagnosis?: No VTE Prior VTE?: No VTE Risk Level:: Medical - moderate - high VTE Device Contraindication: Treatment Not Indicated VTE Drug Contraindication: N/A - Med Ordered
[2024-07-23 12:55] LABS: Glucose, Whole Blood 118 mg/dL (60-115)
[2024-07-23] MEDS: Dextrose 5 % 1,000 ML 150 ML IVCONT ×2 (13:17→20:05)
[2024-07-23 18:08] LABS: Glucose, Whole Blood 235 mg/dL (60-115)
[2024-07-23] MEDS: Insulin Lispro 100 UNIT/ML 3 ML VIAL SUBCUT (18:14)
[2024-07-23] MEDS: cefTRIAXone sodium 1 GM in 0.9 % Sodium Chloride 50 ML IV (20:09)
[2024-07-23] MEDS: Acetaminophen Oral Liquid 650 MG/20.3 ML SOLUTION PO (21:32)
[2024-07-23] MEDS: 0.9 % Sodium Chloride Flush 3 ML SYRINGE IVFLUSH (23:39)
[2024-07-24] VITALS (35 sets, daily range): BP systolic 78–123; BP diastolic 45–76; PULSE 74–119; RESP 14–50; TEMP 36.5–38.7; O2SAT 93–100; BMI 13.7
[2024-07-24 00:03] LABS: Glucose, Whole Blood 192 mg/dL (60-115)
[2024-07-24] MEDS: Insulin Lispro 100 UNIT/ML 3 ML VIAL SUBCUT ×2 (00:46→06:33)
--- NOTE | 2024-07-24 02:29 | HO.SKINPHOTO ---
Location: Medial forehead Category: MDRPI Stage: Length: 1 cm Width: 0.5cm Depth: cm Location: Forehead Right Category: MDRPI Stage: Length: 0.5cm Width: 0.5cm Depth: cm
[2024-07-24] MEDS: Norepinephrine Bitartrate/D5W 8 MG/250 ML PLAST..BAG 8.01 MG IVCONT (05:25)
[2024-07-24 05:28] LABS: VBG Base Excess -4.3 mmol/L; VBG HCO3 19 mmol/L (22-26); VBG pCO2 29 mmHg; VBG pH 7.42 (7.32-7.43); VBG pO2 49 mmHg
[2024-07-24 05:52] LABS: Hematocrit 23.9 % (37.0-47.0); Hemoglobin 7.4 g/dl (12.0-16.0); Mean Corpuscular Hemoglobin 26.4 pg (27.0-33.0); Mean Corpuscular Volume 85.4 fL (80.0-98.0); Mean Platelet Volume 13.4 fL (9.4-12.3); Platelet Count 30 X10*3/uL (160-400); Red Cell Distribution Width 15.5 % (11.0-16.0); WBC ABN SCTR FOR CBC 1
[2024-07-24 05:52] LABS: Venous Blood Gas Refer to POC result
[2024-07-24 05:53] LABS: White Blood Count 1.3 X10*3/uL (4.8-10.8)
[2024-07-24 06:00] LABS: Vancomycin Random 13.5 mcg/mL (15-20)
[2024-07-24 06:05] LABS: Glucose, Whole Blood 151 mg/dL (60-115)
[2024-07-24 06:11] LABS: Alanine Aminotransferase 22 U/L (0-31); Albumin Level 3.3 g/dL (3.5-5.0); Alkaline Phosphatase 388 U/L (39-117); Anion Gap 11 (12-20); Aspartate Amino Transferase 32 U/L (5-31); Bilirubin Total 4.7 mg/dL (0.0-1.0); Blood Urea Nitrogen 24 mg/dL (9-16); Calcium 7.9 mg/dL (8.4-10.2); Carbon Dioxide 19 mmol/L (22-29); Chloride 121 mmol/L (96-108); Creatinine Clr Calc Pharmacy 34.7; Estimated Glomerular Filt Rate > 60; Glucose Random 172 mg/dL (60-115); Magnesium 1.9 mg/dL (1.6-2.6); Phosphorus 2.3 mg/dL (2.7-4.5); Potassium 2.6 mmol/L (3.3-5.1); Sodium 148 mmol/L (135-145); Total Protein 4.6 g/dL (6.5-8.0)
[2024-07-24 06:14] LABS: Band Neutrophils Percent 11 % (3-5); Eosinophils Percent Manual 1 % (0-4); Lymphocytes Absolute Manual 0.2 X10*3/uL (1.2-4.9); Lymphocytes Percent Manual 17 % (20-40); Metamyelocytes Percent 2 %; Microcytosis 2+ (15-30) /OIF; Monocytes Percent Manual 2 % (2-11); Neutrophils Percent Manual 67 % (45-73); RBC Morphology NOTED
[2024-07-24 06:15] LABS: Acanthocytes 2+ (3-5) /OIF; Ovalocytes 1+ (5-14) /OIF; Platelet Estimate DECREASED (NORMAL); Platelet Morphology Comment NORMAL; Schistocytes 1+ (0-2) /OIF
[2024-07-24 06:16] LABS: Burr Cells 1+ (0-2) /OIF; Dohle Bodies PRESENT; Hypochromasia 1+ (5-14) /OIF; Toxic Granulation PRESENT; Toxic Vacuolation PRESENT
[2024-07-24] MEDS: Potassium Chloride/H20 40 MEQ/100 ML PIGGYBACK 50 MEQ IV (06:34)
--- NOTE | 2024-07-24 06:34 | HE.PHANOTE ---
Re: Vanco Renal function has improved. Trough returned at 13.5. If dose was increased to 1g q 24h, AUC woulf be over 600. Continue current dose of 750m q24h, with predicted AUC 477, and predicted trough 13.6. Next trough 07/24 at 0600.
[2024-07-24] MEDS: Potassium Phosphate/NS 15 MMOL/250 ML PLAST..BAG 62.5 MMOL IV ×2 (08:20→22:01)
[2024-07-24] MEDS: Insulin Glargine,Hum.rec.anlog 100 UNIT/ML 10 ML VIAL 10 UNIT SUBCUT (08:20)
[2024-07-24] MEDS: 0.9 % Sodium Chloride Flush 3 ML SYRINGE IVFLUSH ×2 (08:21→15:34)
[2024-07-24] MEDS: vancomycin HCL 750 MG in 0.9 % Sodium Chloride 250 ML 265 MG IV (08:26)
[2024-07-24] MEDS: levETIRAcetam 250 MG in 0.9 % Sodium Chloride 100 ML 410 MG IV ×2 (09:28→20:43)
[2024-07-24] MEDS: LACTATED RINGERS 1053 ML IV (10:10)
--- NOTE | 2024-07-24 10:41 | MHC.CLN ---
RE: CONSULT PT IS MODERATELY MALNOURISHED PT WITH MILDLY DEPLETED SUBCUTANEOUS FAT AND MUSCLE MASS WITH BMI 13.7 AND INCREASED NUTRITION NEEDS R/T PRESSURE INJURY NO PREVIOUS WT HX AVAILABLE AND PT HAS BEEN NONVERBAL SINCE ADMISSION. PT RECEIVING GLUCERNA AT 20ML/HR PROVIDES 480KCALS (14KCALS/KG), 20G PROTEIN (.6G/KG), 409ML FREE WATER FROM FORMULA RECOMMEND ADDING 120ML FREE WATER FLUSHES Q 4 HRS TO PROVIDE 1129ML TOTAL WATER FROM FORMULA AND FLUSHES (32ML/KG) MONITOR TOLERANCE AND LYTES-PT IS AT RISK FOR RE-FEEDING (MONITOR K+. MG, PHOS CLOSELY) SEE ALSO FULL CLINICAL NUTRITION ASSESSMENT
[2024-07-24 11:34] LABS: Glucose, Whole Blood 67 mg/dL (60-115)
--- NOTE | 2024-07-24 12:27 | HO.WOUND ---
Wound Consult: Initial 59yr old?female admitted to [facility] on 07/21/24 - See progress notes and H&P for detailed history.? Wound consult placed for sacral wound POA.? Sacrum Etiology: ??Deep Tisssue Injury in Evolution Present on Admission Measurements: 4cm x 7cm x 0.1cm Wound Bed: epidermal peeling - dark red maroon black wound bed nonblanchble Drainage / Odor: scant yellow Edges: ? irregular Darby wound: ?MASD - No Induration, Fluctuance or Warmth noted Pain: difficult to assess Goals of Treatment: ? Triad to protect from moisture and friction - liquid stools not able to use Foam dressing at this time. Provider and direct care team to consider Flex-iseal for liquid stools The patients forehead is noted for a small stable scan reportedly from removal of the oxygen sensing probe. MARSI (Medical Adhesive Related Skin Injury) - no topical interventions at this time as options are limited given use of oxygen in the general area and the scab is stable and no erythema noted. Recommendations: 1. Turn and Reposition every 2 hours and as needed for patient comfort.? Use pillows or wedges to support off loading positions. 2. Off Load all bony prominences with use of pillows and heel boots if needed.? Apply Preventative foams where needed. ? 3. Monitor for incontinence and moisture control, use barrier creams when needed for prevention and treatment. 4. Provide adequate and supplemental nutrition.? 5. Continue low air loss mattress. 6. When applicable maintain blood glucose levels per Providers order. 7. Sacrum - Off Load Pressure - Cleanse with PH balance spray or wipes, pat dry. ?Apply thin layer of Triad to wound bed - only pat and dab no scrub and rub when soiling occurs. Reapply thin layer PRN after each episode of incontinence. Re-consult wound care Nurse for wound deterioration or wound changes.
--- NOTE | 2024-07-24 13:11 | PM.CCPN ---
Subjective Subjective Date of Service: 07/24/24 Critical Care Time (minutes): 35 Comment: Continues to be needing Levophed for vasopressor support No other new changes Physical Exam Vital Signs: Vital Signs: Last Vital Signs Temp 99.0 F 07/24/24 12:00 Pulse 92 07/24/24 12:25 Resp 20 07/24/24 12:00 BP 104/61 07/24/24 12:25 Pulse Ox 100 07/24/24 12:00 O2 Del Method Nasal Cannula 07/24/24 12:00 O2 Flow Rate 1 07/24/24 12:00 BMI result Body Mass Index 13.7 General: ill appearing and tired appearing Nutritional Appearance: poorly nourished and underweight Eyes: appearance normal, both eyes and all related structures; Alignment and Position: alignment normal and position normal Neck: No lymphadenopathy, no thyromegaly Resp: bilateral air entry equal, occasional added sounds present bilaterally Cardio: Regular rate, regular rhythm; Heart sounds: S1 normal heart sound present and S2 normal heart sound present GI: soft, nontender, no guarding, no hepatosplenomegaly : bladder normal to inspection, bladder normal to palpation, no renal angle tenderness Skin: no rashes or lesions noted and elasticity normal Neuro: oriented to person, oriented to place, oriented to time and moves all extremities Objective Data Labs 07/24/24 05:20 07/24/24 05:20 Labs: Laboratory Results - last 24 hr 07/23/24 07/23/24 07/24/24 18:04 23:59 05:19 WBC RBC Hgb Hct MCV MCH MCHC RDW Plt Count MPV Immature Gran % (Auto) Neut % (Auto) Lymph % (Auto) [place] % (Auto) Eos % (Auto) Baso % (Auto) Lymph # (Auto) [place] # (Auto) Eos # (Auto) Baso # (Auto) Abs Immat Gran (auto) Absolute Neuts (auto) Absolute Nucleated RBC Nucleated RBC % (auto) Neutrophils % (Manual) Band Neutrophils % Lymphocytes % (Manual) Monocytes % (Manual) Eosinophils % (Manual) Metamyelocytes % Abs Neuts (Manual) Lymphocytes # (Manual) Toxic Granulation Toxic Vacuolation Dohle Bodies Platelet Estimate Plt Morphology Comment RBC Morphology Hypochromasia Microcytosis Ovalocytes [place] Cells Acanthocytes (Spur) Schistocytes VBG pH 7.42 VBG pCO2 29 VBG pO2 49 VBG HCO3 19 L VBG O2 Saturation 76.0 VBG Base Excess -4.3 Sodium Potassium Chloride Carbon Dioxide Anion Gap BUN Creatinine Estim Creat Clear Calc Estimated GFR POC Glucose 235 H 192 H Random Glucose Calcium Phosphorus Magnesium Total Bilirubin AST ALT Alkaline Phosphatase Total Protein Albumin Random Vancomycin 07/24/24 07/24/24 07/24/24 05:20 06:01 11:31 WBC 1.3 L RBC 2.80 L Hgb 7.4 L Hct 23.9 L MCV 85.4 MCH 26.4 L MCHC 31.0 RDW 15.5 Plt Count 30 L D MPV 13.4 H Immature Gran % (Auto) Cancelled Neut % (Auto) Cancelled Lymph % (Auto) Cancelled [place] % (Auto) Cancelled Eos % (Auto) Cancelled Baso % (Auto) Cancelled Lymph # (Auto) Cancelled [place] # (Auto) Cancelled Eos # (Auto) Cancelled Baso # (Auto) Cancelled Abs Immat Gran (auto) Cancelled Absolute Neuts (auto) Cancelled Absolute Nucleated RBC 0.000 Nucleated RBC % (auto) 0.0 Neutrophils % (Manual) 67 Band Neutrophils % 11 H Lymphocytes % (Manual) 17 L Monocytes % (Manual) 2 Eosinophils % (Manual) 1 Metamyelocytes % 2 Abs Neuts (Manual) 1.0 L Lymphocytes # (Manual) 0.2 L Toxic Granulation PRESENT Toxic Vacuolation PRESENT Dohle Bodies PRESENT Platelet Estimate DECREASED Plt Morphology Comment NORMAL RBC Morphology NOTED Hypochromasia 1+ (5-14) Microcytosis 2+ (15-30) Ovalocytes 1+ (5-14) Manjeet Cells 1+ (0-2) Acanthocytes (Spur) 2+ (3-5) Schistocytes 1+ (0-2) VBG pH VBG pCO2 VBG pO2 VBG HCO3 VBG O2 Saturation VBG Base Excess Sodium 148 H Potassium 2.6 L* D Chloride 121 H Carbon Dioxide 19 L Anion Gap 11 L BUN 24 H Creatinine 0.82 Estim Creat Clear Calc 34.7 Estimated GFR > 60 POC Glucose 151 H 67 Random Glucose 172 H Calcium 7.9 L Phosphorus 2.3 L Magnesium 1.9 Total Bilirubin 4.7 H AST 32 H ALT 22 Alkaline Phosphatase 388 H Total Protein 4.6 L Albumin 3.3 L Random Vancomycin 13.5 L Microbiology Microbiology Results: Microbiology 07/21/24 17:54 Blood - Venous Blood Culture - Preliminary Prelim: GNR Gram Stain only 07/22/24 Unknown Urine Catheterized - Straight Catheter Urine Culture - Final No growth. 07/21/24 17:54 Blood - Venous Blood Culture - Preliminary No growth after 48 hours. Progress Note: A&P Assessment and plan (1) Septic shock: Status: Acute (2) UTI (urinary tract infection): Status: Acute (3) Hypernatremia: Status: Acute (4) Thrombocytopenia: Status: Acute (5) Leukopenia: Status: Acute Plan 59-year-old lady with underlying Hermansky Pudlak syndrome, diabetes mellitus, developmental delay, hypertension admitted on 07/21/2024 with complains of diarrhea and confusion. On ER evaluation patient with elevated serum ketones, but no acidosis, started on insulin drip and admitted to the intensive care unit. Further hospital course significant for development of septic shock with likely source requiring pressor support. Septic shock: Currently needing Levophed support, titrate to keep map above 65 mm Hg We will give her 1 L of LR bolus to titrate down the Levophed support Possible source of infection is urinary tract infection Blood cultures growing 1/4 bottles positive for Gram-negative rods CT abdomen and pelvis showing cholelithiasis with no evidence of cholecystitis. But given very high ALKP we we will get liver ultrasound to rule out cholecystitis. On Rocephin and vancomycin for antibiotic coverage given unstagable coccyeal ulcer Chronic malnutrition: High-risk for refeeding syndrome We will slowly advanced protein supplementation as tolerated Pancytopenia: Possibly secondary to severe sepsis and septic shock We will closely monitor Diabetes mellitus: Blood sugar under control Continue Lantus 10 units daily, sliding scale insulin as needed Prophylaxis: Heparin withheld due to thrombocytopenia Quality Stroke Does the patient have a stroke diagnosis?: No VTE Prior VTE?: No VTE Risk Level:: Medical - moderate - high VTE Device Contraindication: Treatment Not Indicated VTE Drug Contraindication: N/A - Med Ordered
--- NOTE | 2024-07-24 13:55 | MHC.CM.PN ---
Pt continues on IV Keppra for seizure activity: goals of care are to wean off Levophed. Call placed to pt's sister to review d/c planning needs: return to home (? existing Services) vs STR - message left requesting call back. CM to follow for finalization of d/c plan
[2024-07-24] MEDS: Acetaminophen Oral Liquid 650 MG/20.3 ML SOLUTION PO (16:02)
[2024-07-24 16:11] LABS: Glucose, Whole Blood 64 mg/dL (60-115)
[2024-07-24] MEDS: Dextrose 5 % 1,000 ML 50 ML IVCONT (16:16)
[2024-07-24 17:33] LABS: Glucose, Whole Blood 80 mg/dL (60-115)
[2024-07-24 18:15] LABS: Glucose, Whole Blood 100 mg/dL (60-115)
[2024-07-24 19:46] LABS: Hematocrit 24.2 % (37.0-47.0); Hemoglobin 7.9 g/dl (12.0-16.0); Mean Corpuscular HGB Conc 32.6 g/dl (31.0-35.0); Mean Corpuscular Hemoglobin 27.3 pg (27.0-33.0); Mean Corpuscular Volume 83.7 fL (80.0-98.0); Red Blood Count 2.89 X10*6/uL (4.20-5.50); Red Cell Distribution Width 15.5 % (11.0-16.0)
[2024-07-24 19:50] LABS: Platelet Count 34 X10*3/uL (160-400); White Blood Count 1.3 X10*3/uL (4.8-10.8)
[2024-07-24] MEDS: cefTRIAXone sodium 1 GM in 0.9 % Sodium Chloride 50 ML IV (20:35)
[2024-07-24 20:40] LABS: Alanine Aminotransferase 22 U/L (0-31); Albumin Level 2.9 g/dL (3.5-5.0); Alkaline Phosphatase 539 U/L (39-117); Anion Gap 13 (12-20); Aspartate Amino Transferase 39 U/L (5-31); Bilirubin Total 5.4 mg/dL (0.0-1.0); Blood Urea Nitrogen 22 mg/dL (9-16); Calcium 7.9 mg/dL (8.4-10.2); Carbon Dioxide 17 mmol/L (22-29); Chloride 121 mmol/L (96-108); Creatinine Clr Calc Pharmacy 50.3; Estimated Glomerular Filt Rate > 60; Glucose Random 93 mg/dL (60-115); Magnesium 1.8 mg/dL (1.6-2.6); Phosphorus 2.3 mg/dL (2.7-4.5); Potassium 3.2 mmol/L (3.3-5.1); Sodium 148 mmol/L (135-145); Total Protein 4.4 g/dL (6.5-8.0)
[2024-07-24 20:56] LABS: Band Neutrophils Percent 0 % (3-5); Eosinophils Percent Manual 2 % (0-4); Lymphocytes Absolute Manual 0.2 X10*3/uL (1.2-4.9); Lymphocytes Percent Manual 15 % (20-40); Metamyelocytes Percent 3 %; Neutrophils Absolute Manual 0.9 X10*3/uL (2.0-8.3); Neutrophils Percent Manual 73 % (45-73)
[2024-07-24 20:57] LABS: Burr Cells 1+ (0-2) /OIF; Howell Jolly Bodies PRESENT; Platelet Estimate DECREASED (NORMAL); Platelet Morphology Comment NORMAL; RBC Morphology NOTED; Schistocytes 1+ (0-2) /OIF
[2024-07-24] MEDS: Albumin Human 25 % 100 ML 133.33 ML IV ×2 (22:01→22:54)
[2024-07-25] VITALS (28 sets, daily range): BP systolic 95–154; BP diastolic 52–88; PULSE 88–124; RESP 16–36; TEMP 36.8–38.7; O2SAT 91–98; BMI 15.9
[2024-07-25] MEDS: 0.9 % Sodium Chloride Flush 3 ML SYRINGE IVFLUSH ×3 (00:08→15:10)
[2024-07-25 00:13] LABS: Glucose, Whole Blood 85 mg/dL (60-115)
[2024-07-25] MEDS: Potassium Phosphate/NS 15 MMOL/250 ML PLAST..BAG 62.5 MMOL IV (02:05)
[2024-07-25 05:26] LABS: Hematocrit 22.2 % (37.0-47.0); Hemoglobin 7.3 g/dl (12.0-16.0); Mean Corpuscular HGB Conc 32.9 g/dl (31.0-35.0); Mean Corpuscular Hemoglobin 27.2 pg (27.0-33.0); Mean Corpuscular Volume 82.8 fL (80.0-98.0); Mean Platelet Volume 12.7 fL (9.4-12.3); Red Blood Count 2.68 X10*6/uL (4.20-5.50); Red Cell Distribution Width 15.5 % (11.0-16.0); WBC ABN SCTR FOR CBC 1
[2024-07-25 05:27] LABS: Platelet Count 33 X10*3/uL (160-400)
[2024-07-25 05:28] LABS: White Blood Count 1.1 X10*3/uL (4.8-10.8)
[2024-07-25 05:32] LABS: VBG Base Excess -3.1 mmol/L; VBG HCO3 18 mmol/L (22-26); VBG pCO2 22 mmHg; VBG pH 7.52 (7.32-7.43); VBG pO2 37 mmHg
[2024-07-25 05:46] LABS: Vancomycin Random 13.4 mcg/mL (15-20)
[2024-07-25] MEDS: Norepinephrine Bitartrate/D5W 8 MG/250 ML PLAST..BAG 1.14 MG IVCONT (05:50)
[2024-07-25 05:57] LABS: Band Neutrophils Percent 6 % (3-5); Basophils Percent Manual 1 % (0-2); Eosinophils Percent Manual 1 % (0-4); Lymphocytes Absolute Manual 0.2 X10*3/uL (1.2-4.9); Lymphocytes Percent Manual 19 % (20-40); Monocytes Percent Manual 1 % (2-11); Neutrophils Absolute Manual 0.9 X10*3/uL (2.0-8.3); Neutrophils Percent Manual 72 % (45-73)
[2024-07-25 05:59] LABS: Hypochromasia 1+ (5-14) /OIF; Platelet Estimate DECREASED (NORMAL); Platelet Morphology Comment NORMAL; RBC Morphology NOTED
[2024-07-25 06:04] LABS: Alanine Aminotransferase 21 U/L (0-31); Albumin Level 3.7 g/dL (3.5-5.0); Alkaline Phosphatase 592 U/L (39-117); Anion Gap 13 (12-20); Aspartate Amino Transferase 41 U/L (5-31); Bilirubin Total 6.3 mg/dL (0.0-1.0); Blood Urea Nitrogen 21 mg/dL (9-16); Calcium 8.1 mg/dL (8.4-10.2); Carbon Dioxide 18 mmol/L (22-29); Chloride 120 mmol/L (96-108); Creatinine Clr Calc Pharmacy 49.6; Estimated Glomerular Filt Rate > 60; Glucose Random 134 mg/dL (60-115); Magnesium 1.9 mg/dL (1.6-2.6); Phosphorus 4.4 mg/dL (2.7-4.5); Sodium 147 mmol/L (135-145); Total Protein 5.1 g/dL (6.5-8.0)
[2024-07-25 06:15] LABS: Venous Blood Gas Refer to POC result
--- NOTE | 2024-07-25 06:32 | HE.PHANOTE ---
Re: Sitao Renal function improving. Trough returned at 13.4, but treating sepsis. Dose increased to 1,000 q24h with predicted AUC 517, and predicted trough 13.7. Next trough 07/26 @ 0600.
[2024-07-25] MEDS: vancomycin HCL 1,000 MG in 0.9 % Sodium Chloride 250 ML 270 MG IV (07:42)
[2024-07-25] MEDS: Acetaminophen Oral Liquid 650 MG/20.3 ML SOLUTION PO ×2 (07:42→19:48)
[2024-07-25] MEDS: levETIRAcetam 250 MG in 0.9 % Sodium Chloride 100 ML 410 MG IV ×2 (08:18→21:19)
[2024-07-25] MEDS: Insulin Glargine,Hum.rec.anlog 100 UNIT/ML 10 ML VIAL 10 UNIT SUBCUT (08:18)
--- NOTE | 2024-07-25 08:19 | P.CDIM_ITS ---
PROVIDER RESPONSE TEXT: To clarify, the appropriate diagnosis supported by the clinical indicators: Severe QUERY TEXT: PHYSICIAN'S DOCUMENTATION REQUEST Date of Query: 07/25/2024 05:59 AM EDT Patient Name: Sadia Aguirre Admit Date: 07/21/2024 Dear José Leonard MD, A review of the medical record indicates additional documentation may be needed. Please review below and update the documentation accordingly. Documentation includes the diagnosis of malnutrition. Clinical nutrition notes dated 07/24 - patient is moderately malnourished with BMI 13.7 Mildly depleted subcutaneous fat and muscle mass and increased nutritional needs R/T pressure injury. If possible, please provide additional specificity regarding the severity of the malnutrition using t he above information: Mild Moderate Severe Other (explain) Clinically unable to determine (explain) Thank you, Ester Chaves, CCS, CDIS Use of terms such as suspected, likely, concern for, or probable (associated with a specific diagnosi s that is being evaluated, monitored, or treated as if it exists) are acceptable and can be coded in the inpatient se tting, when documented at the time of discharge. Please use your independent medical judgment in providing your response. THIS QUERY IS PART OF THE PERMANENT MEDICAL RECORD
--- NOTE | 2024-07-25 08:19 | P.CDIM_ITS ---
PROVIDER RESPONSE TEXT: To clarify, the appropriate diagnosis supported by the clinical indicators: Deep Tissue Injury sacrum: suspected QUERY TEXT: PHYSICIAN'S DOCUMENTATION REQUEST Date of Query: 07/25/2024 06:03 AM EDT Patient Name: Sadia Aguirre Admit Date: 07/21/2024 Dear José Leonard MD, A review of the medical record indicates additional documentation may be needed. Please review below and update the documentation accordingly. Clinical Indicators: Wound care notes 07/24 - Deep tissue injury sacrum in evolution and present on admission. Dark red maroon black wound bed non-blanchable. Triad to protect from moisture and friction - foam dressing at this time. Based on the above, could you please provide further information regarding the ulcer/wound/injury: Deep Tissue Injury sacrum possible, probable, suspected etc. Other (explain) Clinically unable to determine (explain) Thank you, Ester Chaves, CCS, CDIS Use of terms such as suspected, likely, concern for, or probable (associated with a specific diagnosi s that is being evaluated, monitored, or treated as if it exists) are acceptable and can be coded in the inpatient se tting, when documented at the time of discharge. Please use your independent medical judgment in providing your response. THIS QUERY IS PART OF THE PERMANENT MEDICAL RECORD
--- NOTE | 2024-07-25 08:53 | P.PNCC_ITS ---
Subjective Subjective Date of Service: 07/25/24 Critical Care Time (minutes): 35 Comment: Decreasing doses of Levophed this morning and turned off around 8AM febrile episodes overnight tachycardic from fever Physical Exam 2 Vital Signs: Vital Signs: Last Vital Signs Temp 101.1 F H 07/25/24 08:00 Pulse 120 H 07/25/24 08:00 Resp 22 H 07/25/24 08:00 BP 108/64 07/25/24 08:00 Pulse Ox 95 07/25/24 08:00 O2 Del Method Nasal Cannula 07/25/24 08:00 O2 Flow Rate 1 07/25/24 08:00 BMI result Body Mass Index 15.9 General: ill appearing and tired appearing Nutritional Appearance: Poor nourished and underweight Eyes: appearance normal, both eyes and all related structures; Alignment and Position: alignment normal and position normal Neck: No lymphadenopathy, no thyromegaly Resp: bilateral air entry equal, occasional added sounds present in the lung base on the right Cardio: Regular rate, regular rhythm; Heart sounds: S1 normal heart sound present and S2 normal heart sound present GI: soft, nontender, no guarding, no hepatosplenomegaly : bladder normal to inspection, bladder normal to palpation, no renal angle tenderness Skin: no rashes or lesions noted and elasticity normal Neuro: No focal deficit, moves all extremities Objective Data Labs 07/25/24 05:13 07/25/24 05:13 Labs: Laboratory Results - last 24 hr 07/21/24 07/24/24 07/24/24 11:41 11:31 16:01 WBC RBC Hgb Hct MCV MCH MCHC RDW Plt Count MPV Immature Gran % (Auto) Neut % (Auto) Lymph % (Auto) [place] % (Auto) Eos % (Auto) Baso % (Auto) Lymph # (Auto) [place] # (Auto) Eos # (Auto) Baso # (Auto) Abs Immat Gran (auto) Absolute Neuts (auto) Absolute Nucleated RBC Nucleated RBC % (auto) Neutrophils % (Manual) Band Neutrophils % Lymphocytes % (Manual) Monocytes % (Manual) Eosinophils % (Manual) Basophils % (Manual) Metamyelocytes % Abs Neuts (Manual) Lymphocytes # (Manual) Platelet Estimate Plt Morphology Comment RBC Morphology Hypochromasia [place] Bodies [place] Cells Schistocytes Smear Path Review VBG pH VBG pCO2 VBG pO2 VBG HCO3 VBG O2 Saturation VBG Base Excess Sodium Potassium Chloride Carbon Dioxide Anion Gap BUN Creatinine Estim Creat Clear Calc Estimated GFR POC Glucose 67 64 Random Glucose Calcium Phosphorus Magnesium Total Bilirubin AST ALT Alkaline Phosphatase Total Protein Albumin Random Vancomycin 07/24/24 07/24/24 07/24/24 17:30 18:12 19:29 WBC 1.3 L RBC 2.89 L Hgb 7.9 L Hct 24.2 L MCV 83.7 MCH 27.3 MCHC 32.6 RDW 15.5 Plt Count 34 L MPV 13.0 H Immature Gran % (Auto) Cancelled Neut % (Auto) Cancelled Lymph % (Auto) Cancelled [place] % (Auto) Cancelled Eos % (Auto) Cancelled Baso % (Auto) Cancelled Lymph # (Auto) Cancelled [place] # (Auto) Cancelled Eos # (Auto) Cancelled Baso # (Auto) Cancelled Abs Immat Gran (auto) Cancelled Absolute Neuts (auto) Cancelled Absolute Nucleated RBC 0.000 Nucleated RBC % (auto) 0.0 Neutrophils % (Manual) 73 Band Neutrophils % 0 L Lymphocytes % (Manual) 15 L Monocytes % (Manual) Eosinophils % (Manual) 2 Basophils % (Manual) Metamyelocytes % 3 Abs Neuts (Manual) 0.9 L Lymphocytes # (Manual) 0.2 L Platelet Estimate DECREASED Plt Morphology Comment NORMAL RBC Morphology NOTED Hypochromasia [place] Bodies PRESENT [place] Cells 1+ (0-2) Schistocytes 1+ (0-2) Smear Path Review VBG pH VBG pCO2 VBG pO2 VBG HCO3 VBG O2 Saturation VBG Base Excess Sodium 148 H Potassium 3.2 L D Chloride 121 H Carbon Dioxide 17 L Anion Gap 13 BUN 22 H Creatinine 0.65 Estim Creat Clear Calc 50.3 Estimated GFR > 60 POC Glucose 80 100 Random Glucose 93 Calcium 7.9 L Phosphorus 2.3 L Magnesium 1.8 Total Bilirubin 5.4 H AST 39 H ALT 22 Alkaline Phosphatase 539 H Total Protein 4.4 L Albumin 2.9 L Random Vancomycin 07/25/24 07/25/24 07/25/24 00:08 05:13 05:19 WBC 1.1 L RBC 2.68 L Hgb 7.3 L Hct 22.2 L MCV 82.8 MCH 27.2 MCHC 32.9 RDW 15.5 Plt Count 33 L MPV 12.7 H Immature Gran % (Auto) Cancelled Neut % (Auto) Cancelled Lymph % (Auto) Cancelled [place] % (Auto) Cancelled Eos % (Auto) Cancelled Baso % (Auto) Cancelled Lymph # (Auto) Cancelled [place] # (Auto) Cancelled Eos # (Auto) Cancelled Baso # (Auto) Cancelled Abs Immat Gran (auto) Cancelled Absolute Neuts (auto) Cancelled Absolute Nucleated RBC 0.000 Nucleated RBC % (auto) 0.0 Neutrophils % (Manual) 72 Band Neutrophils % 6 H Lymphocytes % (Manual) 19 L Monocytes % (Manual) 1 L Eosinophils % (Manual) 1 Basophils % (Manual) 1 Metamyelocytes % Abs Neuts (Manual) 0.9 L Lymphocytes # (Manual) 0.2 L Platelet Estimate DECREASED Plt Morphology Comment NORMAL RBC Morphology NOTED Hypochromasia 1+ (5-14) [place] Bodies [place] Cells Schistocytes Smear Path Review VBG pH 7.52 H VBG pCO2 22 VBG pO2 37 VBG HCO3 18 L VBG O2 Saturation 63.0 VBG Base Excess -3.1 Sodium 147 H Potassium 4.0 D Chloride 120 H Carbon Dioxide 18 L Anion Gap 13 BUN 21 H Creatinine 0.66 Estim Creat Clear Calc 49.6 Estimated GFR > 60 POC Glucose 85 Random Glucose 134 H Calcium 8.1 L Phosphorus 4.4 Magnesium 1.9 Total Bilirubin 6.3 H AST 41 H ALT 21 Alkaline Phosphatase 592 H Total Protein 5.1 L Albumin 3.7 Random Vancomycin 13.4 L Microbiology Microbiology Results: Microbiology 07/21/24 17:54 Blood - Venous Blood Culture - Preliminary Gram negative delilah 07/22/24 Unknown Urine Catheterized - Straight Catheter Urine Culture - Final No growth. 07/21/24 17:54 Blood - Venous Blood Culture - Preliminary No growth after 48 hours. Progress Note: A&P Assessment and plan (1) Leukopenia: Status: Acute (2) Thrombocytopenia: Status: Acute (3) UTI (urinary tract infection): Status: Acute (4) Septic shock: Status: Acute (5) Acute renal failure: Status: Acute (6) Hermansky-Pudlak syndrome: Status: Acute Plan 59-year-old lady with underlying Hermansky Pudlak syndrome, diabetes mellitus, developmental delay, hypertension admitted on 07/21/2024 with complains of diarrhea and confusion. On ER evaluation patient with elevated serum ketones, but no acidosis, started on insulin drip and admitted to the intensive care unit. Further hospital course significant for development of septic shock with likely source requiring pressor support. Septic shock: Currently needing Levophed support, titrate to keep map above 65 mm Hg Possible source of infection is urinary tract infection and pyelonephritis Blood cultures growing 1/4 bottles positive for Gram-negative rods CT abdomen and pelvis showing cholelithiasis with no evidence of cholecystitis which was confirmed with ultrasound. However ultrasound also suggested possibility of pyelonephritis which was not seen in CT. We will get renal ultrasound On Rocephin and vancomycin for antibiotic coverage given unstagable coccyeal ulcer Chronic malnutrition: High-risk for refeeding syndrome We will slowly advanced protein supplementation as tolerated Pancytopenia: Possibly secondary to severe sepsis and septic shock Transfuse platelets if less than 20,000, currently 33,000 We will closely monitor Acute kidney injury: Secondary to ATN from shock Creatinine maximum was about 1.1, currently down to 0.66 this morning. Her creatinine response might be suboptimal given her very poor muscle mass We will closely monitor her I's and O's Hypernatremia: on D5W drip, sodium down to 147 Diabetes mellitus: Blood sugar under control Continue Lantus 10 units daily, will withold given hypoglycemia sliding scale insulin as needed Lines: has Cannon as she cant have Purewick and has coccygeal wound Prophylaxis: Heparin withheld due to thrombocytopenia Quality Stroke Does the patient have a stroke diagnosis?: No VTE Prior VTE?: No VTE Risk Level:: Medical - moderate - high VTE Device Contraindication: Treatment Not Indicated VTE Drug Contraindication: N/A - Med Ordered
--- NOTE | 2024-07-25 10:22 | MHC.CLN ---
F/U PT IS MODERATELY MALNOURISHED SEE FULL CLINICAL NUTRITION ASSESSMENT DATED 07/24/24 DISCUSSED AT ROUNDS WITH PT RECEIVING GLUCERNA AT 20ML/HR WITH 120ML FREE WATER FLUSHES Q 4 HRS PROVIDES 480KCALS (650KCALS TOTAL WITH D5W IVF; 16KCALS/KG), 20G PROTEIN (.6G/KG), 1129ML TOTAL FREE WATER FROM FORMULA (32ML/KG) PLAN TO SLOWLY ADVANCE TO MAX GOAL RATE TF R/T RISK OF RE-FEEDING MONITOR TOLERANCE AND LYTES-PT IS AT RISK FOR RE-FEEDING (MONITOR K+. MG, PHOS CLOSELY)
[2024-07-25 11:29] LABS: Glucose, Whole Blood 142 mg/dL (60-115)
[2024-07-25] MEDS: Dextrose 5 % 1,000 ML 50 ML IVCONT (11:29)
[2024-07-25 17:06] LABS: Glucose, Whole Blood 115 mg/dL (60-115)
[2024-07-25] MEDS: cefTRIAXone sodium 1 GM in 0.9 % Sodium Chloride 50 ML IV (19:37)
[2024-07-25 23:34] LABS: Glucose, Whole Blood 113 mg/dL (60-115)
[2024-07-26] VITALS (26 sets, daily range): BP systolic 103–133; BP diastolic 54–79; PULSE 93–121; RESP 13–25; TEMP 37.3–38.7; O2SAT 90–98; BMI 14.1
[2024-07-26 05:26] LABS: VBG Base Excess -2.7 mmol/L; VBG HCO3 18 mmol/L (22-26); VBG pCO2 18 mmHg; VBG pH 7.58 (7.32-7.43); VBG pO2 59 mmHg
[2024-07-26 05:41] LABS: Hemoglobin 7.3 g/dl (12.0-16.0); PLT ABN DIST 1
[2024-07-26 05:43] LABS: Hematocrit 22.9 % (37.0-47.0); Mean Corpuscular HGB Conc 31.9 g/dl (31.0-35.0); Mean Corpuscular Volume 84.8 fL (80.0-98.0); Red Cell Distribution Width 15.3 % (11.0-16.0); White Blood Count 1.1 X10*3/uL (4.8-10.8)
[2024-07-26 05:54] LABS: Platelet Count 9 X10*3/uL (160-400)
[2024-07-26 05:55] LABS: Vancomycin Random 15.6 mcg/mL (15-20)
[2024-07-26 06:10] LABS: Alanine Aminotransferase 27 U/L (0-31); Albumin Level 3.4 g/dL (3.5-5.0); Alkaline Phosphatase 954 U/L (39-117); Anion Gap 12 (12-20); Aspartate Amino Transferase 65 U/L (5-31); Bilirubin Total 5.9 mg/dL (0.0-1.0); Blood Urea Nitrogen 19 mg/dL (9-16); Calcium 8.1 mg/dL (8.4-10.2); Carbon Dioxide 17 mmol/L (22-29); Chloride 117 mmol/L (96-108); Creatinine Clr Calc Pharmacy 57.2; Estimated Glomerular Filt Rate > 60; Glucose Random 148 mg/dL (60-115); Phosphorus 2.7 mg/dL (2.7-4.5); Potassium 3.3 mmol/L (3.3-5.1); Sodium 143 mmol/L (135-145); Total Protein 5.1 g/dL (6.5-8.0)
[2024-07-26] MEDS: Potassium Chloride Packet 20 MEQ PACKET 40 MEQ PO (06:26)
[2024-07-26 06:32] LABS: Band Neutrophils Percent 10 % (3-5); Basophils Percent Manual 1 % (0-2); Lymphocytes Absolute Manual 0.1 X10*3/uL (1.2-4.9); Lymphocytes Percent Manual 13 % (20-40); Monocytes Percent Manual 1 % (2-11); Neutrophils Absolute Manual 0.9 X10*3/uL (2.0-8.3); Neutrophils Percent Manual 74 % (45-73)
[2024-07-26 06:33] LABS: Platelet Estimate DECREASED (NORMAL); Platelet Morphology Comment NORMAL; RBC Morphology NORMAL
--- NOTE | 2024-07-26 08:51 | PM.CCPN ---
Subjective Subjective Date of Service: 07/26/24 Critical Care Time (minutes): 35 Comment: Labs continues to worsen with platelet count dropping to 9000, she is neutropenic Blood pressure is more stable off Levophed drip since yesterday morning Still remains confused received 1 unit of platelet transfusion this morning Physical Exam Vital Signs: Vital Signs: Last Vital Signs Temp 99.7 F 07/26/24 08:00 Pulse 98 07/26/24 08:00 Resp 18 07/26/24 08:00 BP 119/54 L 07/26/24 08:00 Pulse Ox 93 07/26/24 08:00 O2 Del Method Nasal Cannula 07/26/24 08:00 O2 Flow Rate 1 07/26/24 08:00 BMI result Body Mass Index 14.1 General: ill appearing and tired appearing Nutritional Appearance: Very poorly nourished and underweight Eyes: appearance normal, both eyes and all related structures; Alignment and Position: alignment normal and position normal Neck: No lymphadenopathy, no thyromegaly Resp: bilateral air entry equal, occasional added sounds present Cardio: Regular rate, regular rhythm; Heart sounds: S1 normal heart sound present and S2 normal heart sound present GI: soft, nontender, no guarding, no hepatosplenomegaly : bladder normal to inspection, bladder normal to palpation, no renal angle tenderness Skin: no rashes or lesions noted and elasticity normal Neuro: Confused, does not follow commands Objective Data Labs 07/26/24 05:17 07/26/24 05:17 Labs: Laboratory Results - last 24 hr 07/25/24 07/25/24 07/25/24 11:26 16:59 23:31 WBC RBC Hgb Hct MCV MCH MCHC RDW Plt Count MPV Immature Gran % (Auto) Neut % (Auto) Lymph % (Auto) [place] % (Auto) Eos % (Auto) Baso % (Auto) Lymph # (Auto) [place] # (Auto) Eos # (Auto) Baso # (Auto) Abs Immat Gran (auto) Absolute Neuts (auto) Absolute Nucleated RBC Nucleated RBC % (auto) Neutrophils % (Manual) Band Neutrophils % Lymphocytes % (Manual) Monocytes % (Manual) Basophils % (Manual) Abs Neuts (Manual) Lymphocytes # (Manual) Platelet Estimate Plt Morphology Comment RBC Morphology VBG pH VBG pCO2 VBG pO2 VBG HCO3 VBG O2 Saturation VBG Base Excess Sodium Potassium Chloride Carbon Dioxide Anion Gap BUN Creatinine Estim Creat Clear Calc Estimated GFR POC Glucose 142 H 115 113 Random Glucose Calcium Phosphorus Magnesium Total Bilirubin AST ALT Alkaline Phosphatase Total Protein Albumin Random Vancomycin Blood Type Antibody Screen 07/26/24 07/26/24 07/26/24 05:16 05:17 06:20 WBC 1.1 L RBC 2.70 L Hgb 7.3 L Hct 22.9 L MCV 84.8 MCH 27.0 MCHC 31.9 RDW 15.3 Plt Count 9 L* D MPV Not Reportable Immature Gran % (Auto) Cancelled Neut % (Auto) Cancelled Lymph % (Auto) Cancelled [place] % (Auto) Cancelled Eos % (Auto) Cancelled Baso % (Auto) Cancelled Lymph # (Auto) Cancelled [place] # (Auto) Cancelled Eos # (Auto) Cancelled Baso # (Auto) Cancelled Abs Immat Gran (auto) Cancelled Absolute Neuts (auto) Cancelled Absolute Nucleated RBC 0.000 Nucleated RBC % (auto) 0.0 Neutrophils % (Manual) 74 H Band Neutrophils % 10 H Lymphocytes % (Manual) 13 L Monocytes % (Manual) 1 L Basophils % (Manual) 1 Abs Neuts (Manual) 0.9 L Lymphocytes # (Manual) 0.1 L Platelet Estimate DECREASED Plt Morphology Comment NORMAL RBC Morphology NORMAL VBG pH 7.58 H VBG pCO2 18 VBG pO2 59 VBG HCO3 18 L VBG O2 Saturation 90.0 VBG Base Excess -2.7 Sodium 143 Potassium 3.3 Chloride 117 H Carbon Dioxide 17 L Anion Gap 12 BUN 19 H Creatinine 0.59 Estim Creat Clear Calc 57.2 Estimated GFR > 60 POC Glucose Random Glucose 148 H Calcium 8.1 L Phosphorus 2.7 Magnesium 2.0 Total Bilirubin 5.9 H AST 65 H ALT 27 Alkaline Phosphatase 954 H Total Protein 5.1 L Albumin 3.4 L Random Vancomycin 15.6 Blood Type O Positive Antibody Screen NEGATIVE Microbiology Microbiology Results: Microbiology 07/21/24 17:54 Blood - Venous Blood Culture - Final Escherichia coli 07/22/24 Unknown Urine Catheterized - Straight Catheter Urine Culture - Final No growth. 07/21/24 17:54 Blood - Venous Blood Culture - Preliminary No growth after 48 hours. Progress Note: A&P Assessment and plan (1) Leukopenia: Status: Acute (2) Thrombocytopenia: Status: Acute (3) UTI (urinary tract infection): Status: Acute (4) Septic shock: Status: Acute (5) Acute renal failure: Status: Acute (6) Hermansky-Pudlak syndrome: Status: Acute (7) Intravascular volume depletion: Status: Acute (8) Hypernatremia: Status: Acute Plan 59-year-old lady with underlying Hermansky Pudlak syndrome, diabetes mellitus, developmental delay, hypertension admitted on 07/21/2024 with complains of diarrhea and confusion. On ER evaluation patient with elevated serum ketones, but no acidosis, started on insulin drip and admitted to the intensive care unit. Further hospital course significant for development of septic shock with likely source requiring pressor support. Septic shock: Off Levophed since yesterday morning, blood pressure stable Possible source of infection is urinary tract infection and pyelonephritis Blood cultures growing 1/4 bottles positive for E coli and is sensitive to ceftriaxone which she is on CT abdomen and pelvis showing cholelithiasis with no evidence of cholecystitis which was confirmed with ultrasound. Abdominal ultrasound and dedicated renal ultrasound also suggested possibility of pyelonephritis which was not seen in CT. On Rocephin and vancomycin for antibiotic coverage given unstagable coccyeal ulcer Acute encephalopathy: cannot LP due to severe thrombocytopenia will not be able sleep and stay still in CT possibly due to metabolic encephalopathy due to severe sepsis Chronic malnutrition: High-risk for refeeding syndrome We will slowly advanced protein supplementation as tolerated Pancytopenia: Possibly secondary to severe sepsis and septic shock Neutropenic with ANC down to 900. Platelet counts down to 9000 We will get LDH, D-dimer, fibrinogen and haptoglobin levels Acute kidney injury: Secondary to ATN from shock Creatinine maximum was about 1.1, improving to 0.5 this morning. Her creatinine response might be suboptimal given her very poor muscle mass We will closely monitor her I's and O's Hypernatremia: Improved down to 143 on D5 water drip which we will stop today Diabetes mellitus: Blood sugar under control Continue Lantus 10 units daily, will withold given hypoglycemia sliding scale insulin as needed Lines: has Cannon as she cant have Purewick and has coccygeal wound Prophylaxis: Heparin withheld due to thrombocytopenia Quality Stroke Does the patient have a stroke diagnosis?: No VTE Prior VTE?: No VTE Risk Level:: Medical - moderate - high VTE Device Contraindication: Treatment Not Indicated VTE Drug Contraindication: N/A - Med Ordered
[2024-07-26] MEDS: 0.9 % Sodium Chloride Flush 3 ML SYRINGE IVFLUSH ×2 (10:02→17:08)
[2024-07-26 10:30] LABS: Fibrinogen 245 MG/DL (259-690)
[2024-07-26 10:32] LABS: D Dimer High Sensitivity 375 NG/ML
[2024-07-26 10:35] LABS: Lactate Dehydrogenase 400 U/L (122-220)
[2024-07-26 10:43] LABS: Haptoglobin < 8 mg/dL (63-273)
[2024-07-26 11:17] LABS: Venous Blood Gas Refer to POC result
[2024-07-26 12:00] LABS: Glucose, Whole Blood 168 mg/dL (60-115)
[2024-07-26] MEDS: levETIRAcetam 250 MG in 0.9 % Sodium Chloride 100 ML 410 MG IV ×2 (12:14→21:38)
--- NOTE | 2024-07-26 12:22 | MHC.CLN ---
F/U PT IS MODERATELY MALNOURISHED PT WITH INCREASED NUTRITION RISK R/T MALNUTRITION AND DTI COCCYX LYTES STABLE AND REPLETED PT RECEIVING GLUCERNA AT 20ML/HR WITH 120ML FREE WATER FLUSHES Q 4 HRS PROVIDES 480KCALS (650KCALS TOTAL WITH D5W IVF; 16KCALS/KG), 20G PROTEIN (.6G/KG), 1129ML TOTAL FREE WATER FROM FORMULA (32ML/KG) RECOMMEND TO ADVANCE TO MAX GOAL RATE TF GLUCERNA AT 45ML/HR WITH 30ML PROSOURCE AND 120ML FREE WATER FLUSHES Q 8 HRS TO PROVIDE 1140KCALS (28KCALS/KG), 60G PROTEIN (1.5G/KG), 1281ML TOTAL FREE WATER FROM FORMULA AND FLUSHES (31ML/KG) MONITOR TOLERANCE AND LYTES
[2024-07-26] MEDS: vancomycin HCL 1,000 MG in 0.9 % Sodium Chloride 250 ML 270 MG IV (12:42)
[2024-07-26] MEDS: Insulin Lispro 100 UNIT/ML 3 ML VIAL SUBCUT (12:43)
--- NOTE | 2024-07-26 13:54 | MHC.CM.PN ---
Pt continues care in ICU: PLT down to 9, WBC <3. Pt stopped Levophed: BP holding. Pt originally from home w/family - unknown if she will be able to return following prolonged ICU admission. Will wait for medical stability then discuss d/c planning with pt's sister. CM to follow
[2024-07-26 17:56] LABS: Glucose, Whole Blood 107 mg/dL (60-115)
[2024-07-26 20:11] LABS: Basophils Percent Auto 0.7 % (0-2); Eosinophils Percent Auto 0.7 % (0-4); Hemoglobin 7.1 g/dl (12.0-16.0); Imm Gran Abs Auto 0.01 X10*3/uL (0.00-0.03); Imm Gran Pct Auto 0.7 % (0.0-0.4); Lymphocytes Absolute Auto 0.2 X10*3/uL (1.2-4.9); Lymphocytes Percent Auto 17.2 % (20-40); MANUAL DIFF FLAG SCAN; Mean Corpuscular HGB Conc 32.3 g/dl (31.0-35.0); Mean Corpuscular Hemoglobin 26.7 pg (27.0-33.0); Mean Corpuscular Volume 82.7 fL (80.0-98.0); Mean Platelet Volume 12.6 fL (9.4-12.3); Monocytes Absolute Auto 0.1 X10*3/uL (0.1-1.2); Monocytes Percent Auto 7.5 % (2-11); Neutrophils Percent Auto 73.2 % (45-73); Red Blood Count 2.66 X10*6/uL (4.20-5.50); Red Cell Distribution Width 15.1 % (11.0-16.0); SCAN SMEAR FLAG 1
[2024-07-26 20:17] LABS: White Blood Count 1.3 X10*3/uL (4.8-10.8)
[2024-07-26 20:18] LABS: Platelet Count 52 X10*3/uL (160-400)
[2024-07-26 20:28] LABS: Alanine Aminotransferase 35 U/L (0-31); Albumin Level 3.3 g/dL (3.5-5.0); Alkaline Phosphatase 1201 U/L (39-117); Anion Gap 12 (12-20); Aspartate Amino Transferase 84 U/L (5-31); Bilirubin Total 5.2 mg/dL (0.0-1.0); Blood Urea Nitrogen 19 mg/dL (9-16); Carbon Dioxide 19 mmol/L (22-29); Chloride 118 mmol/L (96-108); Creatinine Clr Calc Pharmacy 51.1; Estimated Glomerular Filt Rate > 60; Glucose Random 124 mg/dL (60-115); Potassium 3.6 mmol/L (3.3-5.1); Sodium 145 mmol/L (135-145); Total Protein 5.1 g/dL (6.5-8.0)
[2024-07-26 20:33] LABS: SLIDE REVIEW VERIFIED
[2024-07-26] MEDS: cefTRIAXone sodium 1 GM in 0.9 % Sodium Chloride 50 ML IV (20:43)
[2024-07-26 23:58] LABS: Glucose, Whole Blood 141 mg/dL (60-115)
[2024-07-27] VITALS (23 sets, daily range): BP systolic 106–169; BP diastolic 58–77; PULSE 96–125; RESP 14–25; TEMP 37.3–38.5; O2SAT 91–97; BMI 13.7
[2024-07-27] MEDS: 0.9 % Sodium Chloride Flush 3 ML SYRINGE IVFLUSH ×2 (00:08→07:37)
[2024-07-27 06:09] LABS: Alanine Aminotransferase 37 U/L (0-31); Albumin Level 3.1 g/dL (3.5-5.0); Alkaline Phosphatase 1215 U/L (39-117); Anion Gap 15 (12-20); Aspartate Amino Transferase 88 U/L (5-31); Bilirubin Total 4.2 mg/dL (0.0-1.0); Blood Urea Nitrogen 19 mg/dL (9-16); Calcium 8.5 mg/dL (8.4-10.2); Carbon Dioxide 16 mmol/L (22-29); Chloride 117 mmol/L (96-108); Creatinine Clr Calc Pharmacy 46.1; Estimated Glomerular Filt Rate > 60; Glucose Random 204 mg/dL (60-115); Magnesium 2.3 mg/dL (1.6-2.6); Phosphorus 2.7 mg/dL (2.7-4.5); Potassium 3.6 mmol/L (3.3-5.1); Sodium 144 mmol/L (135-145); Total Protein 4.9 g/dL (6.5-8.0)
[2024-07-27] MEDS: Insulin Lispro 100 UNIT/ML 3 ML VIAL SUBCUT ×2 (06:15→18:51)
[2024-07-27 07:13] LABS: Eosinophils Percent Auto 0.6 % (0-4); Hematocrit 21.5 % (37.0-47.0); Imm Gran Abs Auto 0.01 X10*3/uL (0.00-0.03); Imm Gran Pct Auto 0.6 % (0.0-0.4); Lymphocytes Absolute Auto 0.3 X10*3/uL (1.2-4.9); MANUAL DIFF FLAG SCAN; Mean Corpuscular HGB Conc 31.6 g/dl (31.0-35.0); Mean Corpuscular Hemoglobin 26.4 pg (27.0-33.0); Mean Corpuscular Volume 83.3 fL (80.0-98.0); Mean Platelet Volume 12.9 fL (9.4-12.3); Monocytes Absolute Auto 0.1 X10*3/uL (0.1-1.2); Monocytes Percent Auto 8.4 % (2-11); Neutrophils Absolute Auto 1.1 x10*3/uL (2.0-8.3); Neutrophils Percent Auto 70.4 % (45-73); Red Blood Count 2.58 X10*6/uL (4.20-5.50); Red Cell Distribution Width 14.9 % (11.0-16.0); SCAN SMEAR FLAG 1
[2024-07-27 07:15] LABS: Platelet Count 63 X10*3/uL (160-400); White Blood Count 1.6 X10*3/uL (4.8-10.8)
[2024-07-27 07:17] LABS: Hemoglobin 6.8 g/dl (12.0-16.0)
[2024-07-27 07:31] LABS: SLIDE REVIEW VERIFIED
[2024-07-27] MEDS: vancomycin HCL 1,000 MG in 0.9 % Sodium Chloride 250 ML 270 MG IV (07:35)
--- NOTE | 2024-07-27 08:58 | P.PNCC_ITS ---
Subjective Subjective Date of Service: 07/27/24 Critical Care Time (minutes): 35 Comment: off vasopressor support for about 48hrs now. mentation slowly improving, tracking around, moving arms more but not following commands. pancytopenia slightly better Physical Exam 2 Vital Signs: Vital Signs: Last Vital Signs Temp 100.6 F H 07/27/24 08:00 Pulse 112 H 07/27/24 08:00 Resp 20 07/27/24 08:00 BP 124/71 07/27/24 08:00 Pulse Ox 94 07/27/24 08:00 O2 Del Method Nasal Cannula 07/27/24 08:00 O2 Flow Rate 1 07/27/24 08:00 BMI result Body Mass Index 13.7 General: ill appearing and tired appearing Nutritional Appearance: Very poorly nourished and under weight Eyes: appearance normal, both eyes and all related structures; Alignment and Position: alignment normal and position normal Neck: No lymphadenopathy, no thyromegaly Resp: bilateral air entry equal, occasional added sounds present Cardio: Regular rate, regular rhythm; Heart sounds: S1 normal heart sound present and S2 normal heart sound present GI: soft, nontender, no guarding, no hepatosplenomegaly : bladder normal to inspection, bladder normal to palpation, no renal angle tenderness Skin: no rashes or lesions noted and elasticity normal Neuro: More awake, tracks the person in her room, moving her upper extremities more Objective Data Labs 07/27/24 06:58 07/27/24 05:15 Labs: Laboratory Results - last 24 hr 07/26/24 07/26/24 07/26/24 06:20 09:54 10:17 WBC RBC Hgb Hct MCV MCH MCHC RDW Plt Count MPV Immature Gran % (Auto) Neut % (Auto) Lymph % (Auto) [place] % (Auto) Eos % (Auto) Baso % (Auto) Lymph # (Auto) [place] # (Auto) Eos # (Auto) Baso # (Auto) Abs Immat Gran (auto) Absolute Neuts (auto) Absolute Nucleated RBC Nucleated RBC % (auto) Smear Tech's Comments Fibrinogen 245 L D-Dimer High Sensitivty 375 Sodium Potassium Chloride Carbon Dioxide Anion Gap BUN Creatinine Estim Creat Clear Calc Estimated GFR POC Glucose Random Glucose Haptoglobin < 8 L Calcium Phosphorus Magnesium Total Bilirubin AST ALT Alkaline Phosphatase Lactate Dehydrogenase 400 H Total Protein Albumin Random Vancomycin Blood Type O Positive Antibody Screen NEGATIVE 07/26/24 07/26/24 07/26/24 11:57 17:52 19:48 WBC 1.3 L RBC 2.66 L Hgb 7.1 L Hct 22.0 L MCV 82.7 MCH 26.7 L MCHC 32.3 RDW 15.1 Plt Count 52 L D MPV 12.6 H Immature Gran % (Auto) 0.7 H Neut % (Auto) 73.2 H Lymph % (Auto) 17.2 L [place] % (Auto) 7.5 Eos % (Auto) 0.7 Baso % (Auto) 0.7 Lymph # (Auto) 0.2 L [place] # (Auto) 0.1 Eos # (Auto) 0.0 Baso # (Auto) 0.0 Abs Immat Gran (auto) 0.01 Absolute Neuts (auto) 1.0 L Absolute Nucleated RBC 0.000 Nucleated RBC % (auto) 0.0 Smear Tech's Comments VERIFIED Fibrinogen D-Dimer High Sensitivty Sodium 145 Potassium 3.6 Chloride 118 H Carbon Dioxide 19 L Anion Gap 12 BUN 19 H Creatinine 0.66 Estim Creat Clear Calc 51.1 Estimated GFR > 60 POC Glucose 168 H 107 Random Glucose 124 H Haptoglobin Calcium 8.0 L Phosphorus Magnesium Total Bilirubin 5.2 H AST 84 H ALT 35 H Alkaline Phosphatase 1201 H Lactate Dehydrogenase Total Protein 5.1 L Albumin 3.3 L Random Vancomycin Blood Type Antibody Screen 07/26/24 07/27/24 07/27/24 23:53 05:15 06:58 WBC 1.6 L RBC 2.58 L Hgb 6.8 L* Hct 21.5 L MCV 83.3 MCH 26.4 L MCHC 31.6 RDW 14.9 Plt Count 63 L MPV 12.9 H Immature Gran % (Auto) 0.6 H Neut % (Auto) 70.4 Lymph % (Auto) 20.0 [place] % (Auto) 8.4 Eos % (Auto) 0.6 Baso % (Auto) 0.0 Lymph # (Auto) 0.3 L [place] # (Auto) 0.1 Eos # (Auto) 0.0 Baso # (Auto) 0.0 Abs Immat Gran (auto) 0.01 Absolute Neuts (auto) 1.1 L Absolute Nucleated RBC 0.000 Nucleated RBC % (auto) 0.0 Smear Tech's Comments VERIFIED Fibrinogen D-Dimer High Sensitivty Sodium 144 Potassium 3.6 Chloride 117 H Carbon Dioxide 16 L Anion Gap 15 BUN 19 H Creatinine 0.71 Estim Creat Clear Calc 46.1 Estimated GFR > 60 POC Glucose 141 H Random Glucose 204 H Haptoglobin Calcium 8.5 D Phosphorus 2.7 Magnesium 2.3 Total Bilirubin 4.2 H AST 88 H ALT 37 H Alkaline Phosphatase 1215 H Lactate Dehydrogenase Total Protein 4.9 L Albumin 3.1 L Random Vancomycin 15.0 Blood Type Antibody Screen Microbiology Microbiology Results: Microbiology 07/21/24 17:54 Blood - Venous Blood Culture - Final No growth after 5 days. 07/25/24 08:59 Blood - Venous Blood Culture - Preliminary No growth after 24 hours. 07/25/24 08:59 Blood - Venous Blood Culture - Preliminary No growth after 24 hours. 07/21/24 17:54 Blood - Venous Blood Culture - Final Escherichia coli 07/22/24 Unknown Urine Catheterized - Straight Catheter Urine Culture - Final No growth. Progress Note: A&P Assessment and plan (1) Leukopenia: Status: Acute (2) Thrombocytopenia: Status: Acute (3) Septic shock: Status: Acute (4) Acute renal failure: Status: Acute (5) Hermansky-Pudlak syndrome: Status: Acute (6) Hypernatremia: Status: Acute Plan 59-year-old lady with underlying Hermansky Pudlak syndrome, diabetes mellitus, developmental delay, hypertension admitted on 07/21/2024 with complains of diarrhea and confusion. On ER evaluation patient with elevated serum ketones, but no acidosis, started on insulin drip and admitted to the intensive care unit. Further hospital course significant for development of septic shock with likely source requiring pressor support. Septic shock: Off Levophed for the past 48hrs, blood pressure stable currently Possible source of infection is urinary tract infection and pyelonephritis Blood cultures growing 1/4 bottles positive for E coli and is sensitive to ceftriaxone which she is on CT abdomen and pelvis showing cholelithiasis with no evidence of cholecystitis which was confirmed with ultrasound. Abdominal ultrasound and dedicated renal ultrasound also suggested possibility of pyelonephritis which was not seen in CT. On Rocephin and vancomycin for antibiotic coverage given unstagable coccyeal ulcer ALKP increased to 1200, will get CT sacrum to rule out osteomyelitis. Acute encephalopathy: cannot LP due to severe thrombocytopenia will not be able sleep and stay still in CT possibly due to metabolic encephalopathy due to severe sepsis Chronic malnutrition: High-risk for refeeding syndrome We will slowly advanced protein supplementation as tolerated feeding interuppted due to removal of NG tube twice yesterday. KO tube placed last night. Pancytopenia: Possibly secondary to severe sepsis and septic shock Pancytopenia slowly improving, ANC is up to 1.1k, WBC count 1.6k Platelet counts remained stable overnight after transfusion yesterday in the morning. Currently 66 K D-dimer normal, fibrinogen 245 unlikely to be DIC will transfuse her 1 unit PRBC this morning, Hb 6.8 Acute kidney injury: Secondary to ATN from shock Creatinine maximum was about 1.1, 0.7 this morning. Her creatinine response might be suboptimal given her very poor muscle mass We will closely monitor her I's and O's We will restart her on standing fluids with LR at 75 cc/hour Diabetes mellitus: Blood sugar under control Continue Lantus 10 units daily, witheld due to hypoglycemia sliding scale insulin as needed Lines: has Cannon as she cant have Purewick and has coccygeal wound Prophylaxis: Heparin withheld due to thrombocytopenia Quality Stroke Does the patient have a stroke diagnosis?: No VTE Prior VTE?: No VTE Risk Level:: Medical - moderate - high VTE Device Contraindication: Treatment Not Indicated VTE Drug Contraindication: N/A - Med Ordered
[2024-07-27] MEDS: levETIRAcetam 250 MG in 0.9 % Sodium Chloride 100 ML 410 MG IV ×2 (09:36→21:06)
[2024-07-27 12:01] LABS: Glucose, Whole Blood 112 mg/dL (60-115)
--- NOTE | 2024-07-27 12:42 | PC.NURSE ---
Pt is difficult IV access. 22 RFA infiltrated, 20 LFA painful with flushing. Both removed. New order for PICC line. Per IR will be placed in late afternoon. MD notified. Plan for CT of abd/pelvis with IV contrast to assess coccyx wound and 1 unit RBCs once IV access secured. 12:30 new PIVs 22 right upper cephalic and 22 left upper cephalic with ultrasound guidance. 12:40 sent for 1 unit RBCs from blood bank
[2024-07-27] MEDS: Lactated Ringers 1,000 ML 75 ML IVCONT (12:59)
--- NOTE | 2024-07-27 16:59 | PM.EVENT ---
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 Large unstageable cocycgeal ulcer and alk phos 1200+. Also on vancomycin. Awaiting CT sacrum to assess for osteomyelitis as she is persistently febrile. Encepahalopathic: nonverbal though tracks with eyes. Severely malnourished and has OG tube. Also has severe pancytopenia and getting 1u pRBCs now for Hb 6.8; plts 63 and WBC 1.6. CHICHI resolved[ note that Cr falsely low due to low muscle mass]. On correction-dose lispro and also Keppra for seizures. Downgrade to telemetry. Time Spent With Patient Time: Total time managing care of this patient today ____ minutes.
--- NOTE | 2024-07-27 17:09 | HO.PICC ---
PICC Line Insertion NPICC Diagnosis:Septic Shock Indication: blood transfusions and antibiotics difficult IV access Pertinent Labs: Reviewed Technique: Following informed consent including risks, benefits and alternatives and using sterile technique including cap and mask, sterile gown, glove and drape, the arm was prepped and draped in the usual sterile fashion of full barrier technique with G. Following completion of [place] Protocol the skin and soft tissues were anesthetized with 1% Lidocaine plain. Using ultrasound guidance, the right basilic vein accessed was obtained in a single attempt by this RN. Over an 0.018 wire through peel-away sheath, a double lumen 5 Algerian PASV PICC line was positioned. Catheter length is 30 cm internal length, the external length was 0 at the 0 external erika, for a total trimmed length of 30 cm. The procedure was performed in S272. Tip verification was performed by Joe Arevalo with Sherlock 3CG. Tip located in SVC. Ultrasound was used to document vein patency and for needle entry. A formal ultrasound picture and cardiac rhythm strip was recorded. [employer] Consultant has released the line for use and it is currently dressed with a StatLock, Tegaderm, and CHG disc. Verification has been performed for blood return and line patency. Arm Circumference: 20 cm Equipment: [employer] Oui PowerPICC Solo Catheter with Sherlock 3CG Tip Catheter Type: 4 Algerian double lumen PASV PICC Lot #: [id number]
[2024-07-27] MEDS: iohexoL 350 MG/ML 100 ML INFUS..BTL IV (17:45)
--- NOTE | 2024-07-27 18:42 | PC.NURSE ---
Cannon left in per verbal order by Dr. Samson. Output 15-30 ml/hr in afternoon, leave in place for monitoring accurate I+Os until 07/28 16:09 Pt transported to IR 272 for PICC placement. PICC placement confirmed and OK to use per IR RN note. 17:30 Pt transported with RN to CT abd/pelvis with contrast. Pt then transferred to [facility] 446.
[2024-07-27 18:45] LABS: Glucose, Whole Blood 241 mg/dL (60-115)
[2024-07-27] MEDS: 0.9 % Sodium Chloride Flush 10 ML SYRINGE 5 ML IVFLUSH (20:22)
[2024-07-27] MEDS: cefTRIAXone sodium 1 GM in 0.9 % Sodium Chloride 50 ML IV (20:22)
[2024-07-28 00:28] LABS: Glucose, Whole Blood 151 mg/dL (60-115)
[2024-07-28] MEDS: Insulin Lispro 100 UNIT/ML 3 ML VIAL SUBCUT ×4 (00:37→18:43)
[2024-07-28] MEDS: 0.9 % Sodium Chloride Flush 3 ML SYRINGE IVFLUSH ×4 (00:37→20:49)
[2024-07-28 03:05] VITALS: BP 118/60; PULSE 105; RESP 20; TEMP 37.3; O2SAT 93
[2024-07-28 06:00] VITALS: BMI 13.7
--- NOTE | 2024-07-28 06:23 | PM.EVENT ---
Event Note Date of Service: 07/28/24 Event Note: Imaging with coccyx osteomyelitis. Consulting Infectious Disease Time Spent With Patient Time: Total time managing care of this patient today ____ minutes.
[2024-07-28 06:24] LABS: Glucose, Whole Blood 169 mg/dL (60-115)
[2024-07-28 06:59] LABS: Creatinine Clr Calc Pharmacy 48.7; Estimated Glomerular Filt Rate > 60
[2024-07-28 07:02] LABS: Vancomycin Random 13.8 mcg/mL (15-20)
--- NOTE | 2024-07-28 07:13 | HE.PHANOTE ---
RE: vanco Patient with possible osteo; changed dose to 500mg Q12H with predicted trough of 16.9mg/L, AUC of 525 mg/L. Next level to be drawn 07/29 @1800
[2024-07-28 07:44] VITALS: BP 134/70; PULSE 100; RESP 20; TEMP 37.1; O2SAT 96
[2024-07-28 08:19] LABS: Alanine Aminotransferase 45 U/L (0-31); Albumin Level 3.1 g/dL (3.5-5.0); Alkaline Phosphatase 1502 U/L (39-117); Anion Gap 12 (12-20); Aspartate Amino Transferase 82 U/L (5-31); Bilirubin Total 3.4 mg/dL (0.0-1.0); Blood Urea Nitrogen 21 mg/dL (9-16); C Reactive Protein 5.38 mg/dL (< or = 0.50); Calcium 8.1 mg/dL (8.4-10.2); Carbon Dioxide 21 mmol/L (22-29); Chloride 116 mmol/L (96-108); Glucose Random 188 mg/dL (60-115); Magnesium 2.3 mg/dL (1.6-2.6); Phosphorus 2.4 mg/dL (2.7-4.5); Potassium 3.4 mmol/L (3.3-5.1); Sodium 146 mmol/L (135-145)
[2024-07-28 08:48] LABS: Basophils Percent Auto 0.5 % (0-2); Eosinophils Percent Auto 0.5 % (0-4); Hematocrit 22.9 % (37.0-47.0); Hemoglobin 7.7 g/dl (12.0-16.0); Imm Gran Abs Auto 0.02 X10*3/uL (0.00-0.03); Lymphocytes Absolute Auto 0.4 X10*3/uL (1.2-4.9); MANUAL DIFF FLAG SCAN; Mean Corpuscular HGB Conc 33.6 g/dl (31.0-35.0); Mean Corpuscular Volume 83.3 fL (80.0-98.0); Mean Platelet Volume 12.3 fL (9.4-12.3); Monocytes Absolute Auto 0.2 X10*3/uL (0.1-1.2); Monocytes Percent Auto 10.7 % (2-11); Neutrophils Absolute Auto 1.4 x10*3/uL (2.0-8.3); Neutrophils Percent Auto 69.3 % (45-73); Platelet Count 111 X10*3/uL (160-400); Red Blood Count 2.75 X10*6/uL (4.20-5.50); Red Cell Distribution Width 14.9 % (11.0-16.0); SCAN SMEAR FLAG 1
[2024-07-28 08:49] LABS: White Blood Count 2.1 X10*3/uL (4.8-10.8)
[2024-07-28 09:28] LABS: Erythrocyte Sedimentation Rate 12 MM/HR (0-20)
[2024-07-28 09:44] LABS: SLIDE REVIEW VERIFIED
--- NOTE | 2024-07-28 10:14 | MHC.CM.PN ---
Per ROUNDS discussion, Patient is not yet medically cleared for dc (medically complex, including an OG Tube); Patient may benefit from a PT Eval to assist with disposition. CM will follow.
[2024-07-28] MEDS: vancomycin HCL 500 MG in 0.9 % Sodium Chloride 100 ML 110 MG IV ×2 (10:20→19:29)
[2024-07-28] MEDS: 0.9 % Sodium Chloride Flush 10 ML SYRINGE 5 ML IVFLUSH ×2 (10:21→19:32)
[2024-07-28] MEDS: Lactated Ringers 1,000 ML 75 ML IVCONT (10:21)
[2024-07-28 11:40] VITALS: BP 144/70; PULSE 104; RESP 20; TEMP 37.3; O2SAT 96
--- NOTE | 2024-07-28 11:55 | MHC.CLN ---
F/U PT IS MODERATELY MALNOURISHED PT WITH INCREASED NUTRITION RISK R/T MALNUTRITION AND DTI COCCYX PT RECEIVING TF GLUCERNA AT MAX GOAL AT 45ML/HR WITH 30ML PROSOURCE AND 120ML FREE WATER FLUSHES Q 8 HRS PROVIDES 1140KCALS (28KCALS/KG), 60G PROTEIN (1.5G/KG), 1281ML TOTAL FREE WATER FROM FORMULA AND FLUSHES (31ML/KG) MONITOR TOLERANCE AND LYTES
[2024-07-28 12:02] LABS: Glucose, Whole Blood 170 mg/dL (60-115)
[2024-07-28] MEDS: levETIRAcetam 250 MG in 0.9 % Sodium Chloride 100 ML 410 MG IV ×2 (13:06→20:47)
--- NOTE | 2024-07-28 14:04 | HO.PM.IMPN ---
Subjective Subjective Date of Service: 07/28/24 Interval History: awake but nonverbal, tracks with eyes fever resolved overnight CT shows coccygeal osteomyelitis TFs via OGT at goal Review of Systems Review of Systems: Yes Unobtainable due to mental status Physical Exam Vital Signs: Vital Signs: Last Vital Signs Temp 99.1 F 07/28/24 11:40 Pulse 104 H 07/28/24 11:40 Resp 20 07/28/24 11:40 BP 144/70 H 07/28/24 11:40 Pulse Ox 96 07/28/24 11:40 O2 Del Method Nasal Cannula 07/28/24 11:40 O2 Flow Rate 2.5 07/28/24 11:40 BMI result Body Mass Index 13.7 Gen: chronically ill- and weak-appearing, cachectic HEENT: sclera anicteric, moist mucus membranes, OGT with TFs Neck: supple Lungs: clear to auscultation bilaterally Heart: regular, tachycardic, no murmurs Abd: soft, non-tender, non-distended Ext: no edema Skin: warm/well-perfused Neuro: alert, nonverbal, moving all extremities Psych: impaired insight Objective Data Active Medications Acetaminophen (Acetaminophen Oral Liquid 650 Mg/20.3 Ml Solution) 650 mg PO Q6H PRN PRN Reason: Fever >101 Last Admin: 07/25/24 19:48 Dose: 650 mg Documented By: PALMIRA Ceftriaxone Sodium (Ceftriaxone Sodium 1 Gm Vial) 1 gm IVPUSH Q24H [facility] Dextrose (D10) 250 mls @ 750 mls/hr IV Q30M PRN PRN Reason: BG <70 Levetiracetam 250 mg/ Sodium (Chloride) 102.5 mls @ 410 mls/hr IV BID [facility] Last Infusion: 07/28/24 13:36 Dose: Infused Documented By: MATEO Lactated Ringer's (Lr) 1,000 mls @ 75 mls/hr IVCONT .[id number] [facility] Last Admin: 07/28/24 10:21 Dose: 75 mls/hr Documented By: MATEO Vancomycin HCl 500 mg/ Sodium (Chloride) 110 mls @ 110 mls/hr IV Q12H [facility] Last Infusion: 07/28/24 12:02 Dose: Infused Documented By: MATEO Insulin Human Lispro (Insulin Lispro 100 Unit/Ml 3 Ml Vial) 0 unit SUBCUT Q6H [facility]; Protocol Last Admin: 07/28/24 13:14 Dose: 2 unit Documented By: MATEO Pharmacy Consult (Consult Rx Vancomycin Dosing) 1 each MISCELLANE DAILY PRN PRN Reason: Consult order Sodium Chloride (0.9 % Sodium Chloride Flush 3 Ml Syringe) 3 ml IVFLUSH QSHIFT [facility] Last Admin: 07/28/24 10:20 Dose: 3 ml Documented By: MATEO Sodium Chloride (0.9 % Sodium Chloride Flush 10 Ml Syringe) 5 ml IVFLUSH TID [facility] Last Admin: 07/28/24 10:21 Dose: 5 ml Documented By: MATEO Labs 07/28/24 08:16 07/28/24 06:28 Labs: Laboratory Results - last 24 hr 07/26/24 07/27/24 07/27/24 06:20 18:40 23:38 MCV MCH MCHC RDW Plt Count MPV Immature Gran % (Auto) Neut % (Auto) Lymph % (Auto) [place] % (Auto) Eos % (Auto) Baso % (Auto) Lymph # (Auto) [place] # (Auto) Eos # (Auto) Baso # (Auto) Abs Immat Gran (auto) Absolute Neuts (auto) Absolute Nucleated RBC Nucleated RBC % (auto) Smear Tech's Comments ESR Anion Gap Estim Creat Clear Calc Estimated GFR POC Glucose 241 H 151 H Random Glucose Calcium Phosphorus Magnesium Total Bilirubin AST ALT Alkaline Phosphatase C-Reactive Protein Total Protein Albumin Random Vancomycin Crossmatch See Detail 07/28/24 07/28/24 07/28/24 06:21 06:28 08:15 MCV MCH MCHC RDW Plt Count MPV Immature Gran % (Auto) Neut % (Auto) Lymph % (Auto) [place] % (Auto) Eos % (Auto) Baso % (Auto) Lymph # (Auto) [place] # (Auto) Eos # (Auto) Baso # (Auto) Abs Immat Gran (auto) Absolute Neuts (auto) Absolute Nucleated RBC Nucleated RBC % (auto) Smear Tech's Comments ESR 12 Anion Gap 12 Estim Creat Clear Calc 48.7 Estimated GFR > 60 POC Glucose 169 H Random Glucose 188 H Calcium 8.1 L Phosphorus 2.4 L Magnesium 2.3 Total Bilirubin 3.4 H AST 82 H ALT 45 H Alkaline Phosphatase 1502 H C-Reactive Protein 5.38 H Total Protein 5.0 L Albumin 3.1 L Random Vancomycin 13.8 L Crossmatch 07/28/24 07/28/24 08:16 11:59 MCV 83.3 MCH 28.0 MCHC 33.6 RDW 14.9 Plt Count 111 L D MPV 12.3 Immature Gran % (Auto) 1.0 H Neut % (Auto) 69.3 Lymph % (Auto) 18.0 L [place] % (Auto) 10.7 Eos % (Auto) 0.5 Baso % (Auto) 0.5 Lymph # (Auto) 0.4 L [place] # (Auto) 0.2 Eos # (Auto) 0.0 Baso # (Auto) 0.0 Abs Immat Gran (auto) 0.02 Absolute Neuts (auto) 1.4 L Absolute Nucleated RBC 0.000 Nucleated RBC % (auto) 0.0 Smear Tech's Comments VERIFIED ESR Anion Gap Estim Creat Clear Calc Estimated GFR POC Glucose 170 H Random Glucose Calcium Phosphorus Magnesium Total Bilirubin AST ALT Alkaline Phosphatase C-Reactive Protein Total Protein Albumin Random Vancomycin Crossmatch Impressions Pelvis CT 07/27/24 17:31 IMPRESSION: 1. Soft tissue ulceration at the distal sacrum and coccyx with an overlying wound dressing, slightly more prominent when compared to the prior examination. Adjacent skin thickening and subcutaneous stranding, consistent with synovitis. No organized fluid collection or abscess formation. 2. Erosion through the posterior elements at S5 as well as irregularity of the proximal coccyx. Findings could represent acute on chronic osteomyelitis in the appropriate clinical setting. 3. Small amount of pelvic free fluid, slightly more prominent when compared to the prior examination. No organized fluid collection. 4. Circumferential subcutaneous edema, increased when compared to the prior examination. 5. Chronic avascular necrosis within the right and left femoral heads without cortical collapse or fragmentation. Electronically signed by: Mehul Gomez MD 07/27/2024 08:40 PM EDT Microbiology Microbiology Results: Microbiology 07/25/24 08:59 Blood Culture - Preliminary Blood - Venous No growth after 48 hours. 07/25/24 08:59 Blood Culture - Preliminary Blood - Venous No growth after 48 hours. Assessment and Plan (1) Septic shock: Status: Acute Plan hospital day 8 for 59yo F with Hermansky-Pudlak syndrome, DM2, developmental delay, HTN admitted to ICU with septic shock from pyelonephritis requiring pressor support, E coli bacteremia [sensitive to ceftriaxone]. Large unstageable cocycgeal ulcer and alk phos 1200+. Hospitazliation complicated by encephalopathy, seizure-like activity, pancytopenia, and CHICHI off pressors >48hr and stepped down to telemetry 07/27/24 septic shock due to E. coli bacteremia/pyelonephritis - ceftriaxone 07/21-, repeat BCx 07/25 negative, will need 2 wk therapy acute/chronic coccygeal osteomyelitis - ID consult, Wound Care consult, on vanco 07/22- + ceftriaxone 07/21- for now acute encephalopathy due to sepsis - no LP done due to thrombocytopenia - I called pt's sister Mojgan and left a message asking her to call back in order to discuss pt's baseline, goals of care, dispo planning seizure-like activity - on levetiracetam - EEG severe malnutrition - on tube feeds, removed NGT x2, oral tube placed, discuss with pt's sister re: PEG tube - monitor lytes daily; risk of refeeding syndrome hypoPO4 - replete, recheck level in am pancytopenia due to septic shock - improving; transfused 1u pRBCs 07/28 with appropriate response; daily CBC CHICHI due to ATN from septic shock - Cr improved; note that it is falsely low due to poor muscle mass DM2 - joe-dose lispro HTN - held lisinopril VTE ppx - SCDs, no heparinoids due to thrombocytopenia dispo - TBD In my clinical judgment, the patient requires continued inpatient hospitalization for the following reasons: IV ABX Total time managing care of this patient today: 50 minutes. Quality Stroke Does the patient have a stroke diagnosis?: No VTE Prior VTE?: No VTE Risk Level:: Medical - moderate - high VTE Device Contraindication: Treatment Not Indicated VTE Drug Contraindication: N/A - Med Ordered
[2024-07-28 14:57] VITALS: BP 144/70; PULSE 104; O2SAT 96
[2024-07-28 15:45] VITALS: BP 150/76; PULSE 105; RESP 18; TEMP 37.7; O2SAT 91
[2024-07-28] MEDS: Potassium Phosphate/NS 15 MMOL/250 ML PLAST..BAG 62.5 MMOL IV (16:04)
--- NOTE | 2024-07-28 17:31 | MHC.SLORD ---
Addendum entered and electronically signed by Nikki Diaz MA, CCC-RESEARCH NURSE PRACTITIONER 07/29/24 09:39: Not appropriate for bedside swallow exam this date- No change in mental status. Patient sleeping with open mouth, not responsive to tactile stimulation with oral swabs. RESEARCH NURSE PRACTITIONER will continue to follow. Original Note: Speech Language Pathology Order Status: Received order for bedside swallow evaluation. Patient nonresponsive to sternal rub, not safe for presentation of PO. Notified MD via [place] Message. Patient currently on oral tube feeds, per MD, sister not sure about having PEG placed yet. RESEARCH NURSE PRACTITIONER eval deferred pending patient's readiness/ability to participate.
[2024-07-28 18:22] LABS: Glucose, Whole Blood 172 mg/dL (60-115)
[2024-07-28] MEDS: cefTRIAXone sodium 1 GM VIAL IVPUSH (19:23)
[2024-07-28 20:00] VITALS: BP 142/85; PULSE 118; RESP 20; TEMP 37.8; O2SAT 99
--- NOTE | 2024-07-28 21:54 | P.CNID_ITS ---
History of Present Illness Data of Consult Service Date: 07/28/24 Requesting physician: Farrah Samson Primary Care Provider: Unknown Physician HPI Reason for consult: sepsis,OM sacrum She presents with weakness and confusion. She has sepsis with tachycardia and temperature to 101.3. She has E coli blood on 07/21. CT pelvis shows erosions sacrum. Review of Systems 2 Review of Systems: Yes Unobtainable due to mental condition PMFSH Family History Family history: reviewed and not pertinent Social History Social History Household Members: Family Housing: House Patient Tobacco Use Status: Tobacco use Unknown Smoked in Last 30 Days: No Use of substances other than those prescribed or required for medical reasons: Unable to respond Last Used Substance: Unknown Currently Displaying Signs/Symptoms of Drug Intoxication Withdrawal: No Advance Directives: Yes Advance Directives Information Provided: No Advance Directives on File: No Advance Directives Date on File: 07/21/24 Do you have a plan to hurt others: No Plan Recently lost weight without trying: Yes How much weight loss: Unsure Eating poorly because of decreased appetite: Yes Nutrition screen score: 5 Nutrition Risks: Emaciation/Cachexia and Poor intake 0-25% >4 days Patient : No : No Poor oral hygiene: No Meds Allergies Allergy/AdvReac Type Severity Reaction Status Date / Time Penicillins [PENICILLINS] Allergy Severe BLEEDING, Verified 07/21/24 10:29 VOMITING aspirin [ASA] Allergy Unknown SWELLING, Verified 07/21/24 10:29 N/V Active Medications: Current Medications Acetaminophen (Acetaminophen Oral Liquid 650 Mg/20.3 Ml Solution) 650 mg PO Q6H PRN PRN Reason: Fever >101 Last Admin: 07/25/24 19:48 Dose: 650 mg Ceftriaxone Sodium (Ceftriaxone Sodium 1 Gm Vial) 1 gm IVPUSH Q24H [facility] Last Admin: 07/28/24 19:23 Dose: 1 gm Dextrose (D10) 250 mls @ 750 mls/hr IV Q30M PRN PRN Reason: BG <70 Levetiracetam 250 mg/ Sodium (Chloride) 102.5 mls @ 410 mls/hr IV BID [facility] Last Infusion: 07/28/24 21:06 Dose: Infused Lactated Ringer's (Lr) 1,000 mls @ 75 mls/hr IVCONT .[id number] [facility] Last Admin: 07/28/24 10:21 Dose: 75 mls/hr Vancomycin HCl 500 mg/ Sodium (Chloride) 110 mls @ 110 mls/hr IV Q12H [facility] Last Infusion: 07/28/24 20:47 Dose: Infused Insulin Human Lispro (Insulin Lispro 100 Unit/Ml 3 Ml Vial) 0 unit SUBCUT Q6H [facility]; Protocol Last Admin: 07/28/24 18:43 Dose: 2 unit Pharmacy Consult (Consult Rx Vancomycin Dosing) 1 each MISCELLANE DAILY PRN PRN Reason: Consult order Sodium Chloride (0.9 % Sodium Chloride Flush 3 Ml Syringe) 3 ml IVFLUSH QSHIFT [facility] Last Admin: 07/28/24 20:49 Dose: 3 ml Sodium Chloride (0.9 % Sodium Chloride Flush 10 Ml Syringe) 5 ml IVFLUSH TID [facility] Last Admin: 07/28/24 19:32 Dose: 5 ml Home Medications ?Medication ?Instructions ?Recorded ?Confirmed ?Last Taken ?Type allopurinol 100 mg tablet 100 mg PO DAILY 07/21/24 07/21/24 Unknown History insulin glargine 100 unit/mL (3 24 unit subcut BEDTIME 07/21/24 07/21/24 Unknown History mL) subcutaneous pen (Lantus Solostar U-100 Insulin) insulin lispro 100 unit/mL 1 sliding scale dose subcut 07/21/24 07/21/24 Unknown History subcutaneous pen (Humalog KwikPen USEASDIRECTD (U-100) Insulin) lisinopril 10 mg tablet 10 mg PO DAILY 07/21/24 07/21/24 Unknown History Physical Exam 2 Vital Signs: Vital Signs: Last Vital Signs Temp 100.1 F 07/28/24 20:00 Pulse 118 H 07/28/24 20:00 Resp 20 07/28/24 20:00 BP 142/85 H 07/28/24 20:00 Pulse Ox 99 07/28/24 20:00 O2 Del Method Nasal Cannula 07/28/24 20:00 O2 Flow Rate 2.5 07/28/24 20:00 BMI result Body Mass Index 13.7 Const: General: cooperative HEENT: Head: Yes normal to inspection Face and sinus: Yes normal facial exam Mouth: Normal oral and palatal mucosa present Teeth and gingiva: d entition normal Eyes: General: appearance normal, both eyes and all related structures P upils: Equal, round and reactive pupils present Resp: Effort & Inspection: normal respiratory effort Cardio: Rate: regular rate Rhythm: regular rhythm GI: Palpation (GI): Soft to palpation and nontender : General: Yes no CVA tenderness Back/Spine/Pelvis: Back: no CVA tenderness Skin: General skin exam: no rashes or lesions noted Neuro: General: moves all extremities Cranial nerves: Yes Equal, round and reactive pupils present Extrem: General: Yes normal to inspection Psych: Other: slightly confused Appearance: grossly normal Results Labs 07/28/24 08:16 07/28/24 06:28 Labs: Short CBC 07/28/24 Range/Units 08:16 WBC 2.1 L (4.8-10.8) X10*3/uL Hgb 7.7 L (12.0-16.0) g/dl Hct 22.9 L (37.0-47.0) % Plt Count 111 L D (160-400) X10*3/uL BMP 07/28/24 06:28 Sodium 146 H Potassium 3.4 Chloride 116 H Carbon Dioxide 21 L BUN 21 H Creatinine 0.67 Calcium 8.1 L Liver Function 07/28/24 Range/Units 06:28 Total Bilirubin 3.4 H (0.0-1.0) mg/dL AST 82 H (5-31) U/L ALT 45 H (0-31) U/L Alkaline Phosphatase 1502 H (39-117) U/L Albumin 3.1 L (3.5-5.0) g/dL Microbiology Microbiology Results: Microbiology 07/25/24 08:59 Blood - Venous Blood Culture - Preliminary No growth after 48 hours. 07/25/24 08:59 Blood - Venous Blood Culture - Preliminary No growth after 48 hours. 07/21/24 17:54 Blood - Venous Blood Culture - Final No growth after 5 days. 07/21/24 17:54 Blood - Venous Blood Culture - Final Escherichia coli 07/22/24 Unknown Urine Catheterized - Straight Catheter Urine Culture - Final No growth. Assessment and Plan (1) Septic shock: Status: Acute Plan She has sepsis likely from sacral area. She has E coli Would continue Ceftriaxone and Vancomycin. Probably six weeks IV Ceftriaxone if no MRSA.
[2024-07-29] VITALS (7 sets, daily range): BP systolic 114–156; BP diastolic 60–82; PULSE 108–122; RESP 17–20; TEMP 36.2–38.7; O2SAT 3–97; BMI 13.9
[2024-07-29] LABS: Glucose, Whole Blood 237 mg/dL (60-115)
[2024-07-29] MEDS: Insulin Lispro 100 UNIT/ML 3 ML VIAL SUBCUT ×4 (00:57→18:41)
[2024-07-29] MEDS: Lactated Ringers 1,000 ML 75 ML IVCONT ×2 (00:57→15:39)
[2024-07-29 06:24] LABS: Glucose, Whole Blood 164 mg/dL (60-115)
[2024-07-29 07:47] LABS: MANUAL DIFF FLAG NO
[2024-07-29 07:55] LABS: Basophils Percent Auto 0.7 % (0-2); Eosinophils Percent Auto 0.4 % (0-4); Hemoglobin 8.1 g/dl (12.0-16.0); Imm Gran Abs Auto 0.03 X10*3/uL (0.00-0.03); Imm Gran Pct Auto 1.1 % (0.0-0.4); Lymphocytes Absolute Auto 0.4 X10*3/uL (1.2-4.9); Lymphocytes Percent Auto 13.9 % (20-40); Mean Corpuscular HGB Conc 32.4 g/dl (31.0-35.0); Mean Corpuscular Hemoglobin 27.6 pg (27.0-33.0); Mean Platelet Volume 12.2 fL (9.4-12.3); Monocytes Absolute Auto 0.2 X10*3/uL (0.1-1.2); Monocytes Percent Auto 5.8 % (2-11); Neutrophils Absolute Auto 2.1 x10*3/uL (2.0-8.3); Neutrophils Percent Auto 78.1 % (45-73); Platelet Count 153 X10*3/uL (160-400); Red Blood Count 2.94 X10*6/uL (4.20-5.50); Red Cell Distribution Width 15.3 % (11.0-16.0); White Blood Count 2.7 X10*3/uL (4.8-10.8)
[2024-07-29] MEDS: 0.9 % Sodium Chloride Flush 3 ML SYRINGE IVFLUSH (08:48)
[2024-07-29] MEDS: levETIRAcetam 250 MG in 0.9 % Sodium Chloride 100 ML 410 MG IV ×2 (08:50→22:01)
[2024-07-29] MEDS: cefTRIAXone sodium 2 GM VIAL IVPUSH (08:50)
[2024-07-29] MEDS: vancomycin HCL 500 MG in 0.9 % Sodium Chloride 100 ML 110 MG IV ×2 (08:50→22:48)
[2024-07-29 09:04] LABS: Alanine Aminotransferase 48 U/L (0-31); Albumin Level 3.1 g/dL (3.5-5.0); Alkaline Phosphatase 1466 U/L (39-117); Anion Gap 12 (12-20); Aspartate Amino Transferase 81 U/L (5-31); Bilirubin Total 2.6 mg/dL (0.0-1.0); Blood Urea Nitrogen 18 mg/dL (9-16); Calcium 8.3 mg/dL (8.4-10.2); Carbon Dioxide 23 mmol/L (22-29); Chloride 113 mmol/L (96-108); Creatinine Clr Calc Pharmacy 51.2; Estimated Glomerular Filt Rate > 60; Glucose Random 159 mg/dL (60-115); Magnesium 2.2 mg/dL (1.6-2.6); Phosphorus 2.4 mg/dL (2.7-4.5); Potassium 3.4 mmol/L (3.3-5.1); Sodium 145 mmol/L (135-145); Total Protein 5.2 g/dL (6.5-8.0)
[2024-07-29 10:33] LABS: MRSA Nasal PCR NEGATIVE (Negative); SA Nasal PCR POSITIVE (Negative)
[2024-07-29 11:59] LABS: Glucose, Whole Blood 155 mg/dL (60-115)
--- NOTE | 2024-07-29 12:38 | P.PNIM_ITS ---
Subjective Subjective Date of Service: 07/29/24 Interval History: non verbal, unable to obtain ROS no fever Review of Systems Review of Systems: Yes all other systems are reviewed and are negative Physical Exam 2 Vital Signs: Vital Signs: Last Vital Signs Temp 97.1 F 07/29/24 11:58 Pulse 120 H 07/29/24 11:58 Resp 18 07/29/24 11:58 BP 124/60 07/29/24 11:58 Pulse Ox 3 L 07/29/24 11:58 O2 Del Method Nasal Cannula 07/29/24 07:21 O2 Flow Rate 3 07/29/24 07:21 BMI result Body Mass Index 13.9 Gen: chronically ill- and weak-appearing, cachectic HEENT: sclera anicteric, moist mucus membranes, OGT with TFs Neck: supple Lungs: clear to auscultation bilaterally Heart: regular, tachycardic, no murmurs Abd: soft, non-tender, non-distended Ext: no edema, RUE PICC Skin: warm/well-perfused Neuro: alert, nonverbal, moving all extremities Psych: impaired insight Objective Data Active Medications Acetaminophen (Acetaminophen Oral Liquid 650 Mg/20.3 Ml Solution) 650 mg PO Q6H PRN PRN Reason: Fever >101 Last Admin: 07/25/24 19:48 Dose: 650 mg Documented By: PALMIRA Ceftriaxone Sodium (Ceftriaxone Sodium 2 Gm Vial) 2 gm IVPUSH Q24H [facility] Last Admin: 07/29/24 08:50 Dose: 2 gm Documented By: MATEO Dextrose (D10) 250 mls @ 750 mls/hr IV Q30M PRN PRN Reason: BG <70 Levetiracetam 250 mg/ Sodium (Chloride) 102.5 mls @ 410 mls/hr IV BID [facility] Last Infusion: 07/29/24 09:10 Dose: Infused Documented By: MATEO Lactated Ringer's (Lr) 1,000 mls @ 75 mls/hr IVCONT .[id number] [facility] Last Admin: 07/29/24 00:57 Dose: 75 mls/hr Documented By: BELEN Vancomycin HCl 500 mg/ Sodium (Chloride) 110 mls @ 110 mls/hr IV Q12H [facility] Last Infusion: 07/29/24 10:22 Dose: Infused Documented By: MATEO Insulin Human Lispro (Insulin Lispro 100 Unit/Ml 3 Ml Vial) 0 unit SUBCUT Q6H [facility]; Protocol Last Admin: 07/29/24 12:16 Dose: 2 unit Documented By: MATEO Pharmacy Consult (Consult Rx Vancomycin Dosing) 1 each MISCELLANE DAILY PRN PRN Reason: Consult order Sodium Chloride (0.9 % Sodium Chloride Flush 3 Ml Syringe) 3 ml IVFLUSH QSHIFT [facility] Last Admin: 07/29/24 08:48 Dose: 3 ml Documented By: MATEO Sodium Chloride (0.9 % Sodium Chloride Flush 10 Ml Syringe) 5 ml IVFLUSH TID [facility] Last Admin: 07/29/24 08:49 Dose: Not Given Documented By: MATEO Non-Admin Reason: IV Running Labs 07/29/24 07:26 07/29/24 07:26 Labs: Laboratory Results - last 24 hr 07/28/24 07/28/24 07/29/24 18:18 23:56 06:19 MCV MCH MCHC RDW Plt Count MPV Immature Gran % (Auto) Neut % (Auto) Lymph % (Auto) [place] % (Auto) Eos % (Auto) Baso % (Auto) Lymph # (Auto) [place] # (Auto) Eos # (Auto) Baso # (Auto) Abs Immat Gran (auto) Absolute Neuts (auto) Absolute Nucleated RBC Nucleated RBC % (auto) Anion Gap Estim Creat Clear Calc Estimated GFR POC Glucose 172 H 237 H 164 H Random Glucose Calcium Phosphorus Magnesium Total Bilirubin AST ALT Alkaline Phosphatase Total Protein Albumin Nasal Screen MRSA (PCR) Nasal S. aureus Screen Nasal MRSA/S.aureus Interp 07/29/24 07/29/24 07/29/24 07:26 09:01 11:56 MCV 85.0 MCH 27.6 MCHC 32.4 RDW 15.3 Plt Count 153 L D MPV 12.2 Immature Gran % (Auto) 1.1 H Neut % (Auto) 78.1 H Lymph % (Auto) 13.9 L [place] % (Auto) 5.8 Eos % (Auto) 0.4 Baso % (Auto) 0.7 Lymph # (Auto) 0.4 L [place] # (Auto) 0.2 Eos # (Auto) 0.0 Baso # (Auto) 0.0 Abs Immat Gran (auto) 0.03 Absolute Neuts (auto) 2.1 Absolute Nucleated RBC 0.000 Nucleated RBC % (auto) 0.0 Anion Gap 12 Estim Creat Clear Calc 51.2 Estimated GFR > 60 POC Glucose 155 H Random Glucose 159 H Calcium 8.3 L Phosphorus 2.4 L Magnesium 2.2 Total Bilirubin 2.6 H AST 81 H ALT 48 H Alkaline Phosphatase 1466 H Total Protein 5.2 L Albumin 3.1 L Nasal Screen MRSA (PCR) NEGATIVE Nasal S. aureus Screen POSITIVE A Nasal MRSA/S.aureus Interp SEE NOTE Assessment and Plan (1) Septic shock: Status: Acute Plan hospital day 9 for 59yo F with Hermansky-Pudlak syndrome, DM2, developmental delay, HTN admitted to ICU with septic shock from pyelonephritis requiring pressor support, E coli bacteremia [sensitive to ceftriaxone]. Large unstageable cocycgeal ulcer and alk phos 1200+. Hospitazliation complicated by encephalopathy, seizure-like activity, pancytopenia, and CHICHI off pressors >48hr and stepped down to telemetry 07/27/24 septic shock due to E. coli bacteremia/pyelonephritis - ceftriaxone 07/21-, repeat BCx 07/25 negative, will need 2 wk therapy but will be on ceftriaxone longer for osteomyelitis acute/chronic coccygeal osteomyelitis - ID consulted, recommends 6 wk of ceftriaxone + vancomycin 07/22-, Wound Care consult acute encephalopathy due to sepsis - no LP done due to thrombocytopenia and pt has been on broad-spectrm antibiotics seizure-like activity - on levetiracetam - EEG severe malnutrition - on tube feeds, removed NGT x2, oral tube placed, may eventually need PEG tube - monitor lytes daily; risk of refeeding syndrome hypoPO4 - replete, recheck level in am pancytopenia due to septic shock - improving; transfused 1u pRBCs 07/28 with appropriate response; daily CBC CHICHI due to ATN from septic shock - Cr improved; note that it is falsely low due to poor muscle mass DM2 - joe-dose lispro HTN - held lisinopril VTE ppx - start enoxaparin dispo - TBD In my clinical judgment, the patient requires continued inpatient hospitalization for the following reasons: IV ABX, tube feeds Total time managing care of this patient today: 45 minutes. Quality Stroke Does the patient have a stroke diagnosis?: No VTE Prior VTE?: No VTE Risk Level:: Medical - moderate - high VTE Device Contraindication: Treatment Not Indicated VTE Drug Contraindication: N/A - Med Ordered
[2024-07-29] MEDS: Potassium Phosphate/NS 15 MMOL/250 ML PLAST..BAG 62.5 MMOL IV (14:01)
[2024-07-29] MEDS: Enoxaparin Sodium 30 MG/0.3 ML SYRINGE SUBCUT (14:01)
[2024-07-29 16:41] LABS: Vancomycin Random 17.3 mcg/mL (15-20)
[2024-07-29 18:33] LABS: Glucose, Whole Blood 167 mg/dL (60-115)
[2024-07-29] MEDS: 0.9 % Sodium Chloride Flush 10 ML SYRINGE 5 ML IVFLUSH (21:00)
[2024-07-29] MEDS: Acetaminophen 1,000 MG/100 ML PIGGYBACK 400 MG IV (22:38)
[2024-07-30] VITALS (14 sets, daily range): BP systolic 90–116; BP diastolic 52–65; PULSE 80–122; RESP 16–20; TEMP 36.4–37.3; O2SAT 94–98; BMI 12.8
[2024-07-30] MEDS: Insulin Lispro 100 UNIT/ML 3 ML VIAL SUBCUT ×2 (01:00→23:31)
[2024-07-30] MEDS: 0.9 % Sodium Chloride Flush 3 ML SYRINGE IVFLUSH ×3 (01:01→20:17)
[2024-07-30 01:06] LABS: Glucose, Whole Blood 229 mg/dL (60-115)
--- NOTE | 2024-07-30 04:41 | PC.NURSE ---
2000 pt noted to have elevated temp attempted to administer acetaminophen liquid form via tube with difficulty ( not draining through tubing) Md aware of difficulty administering with order placed for IV acetaminophen. Administered with decrease in temp noted, antibiotics administered as ordered. Later in shift noted that tube feeding was leaking onto pt's gown. Checked connections to ensure they were secure, md aware.
[2024-07-30 06:05] LABS: Glucose, Whole Blood 90 mg/dL (60-115)
[2024-07-30 06:20] LABS: INTERNATIONAL NORM RATIO 1.3 (0.9-1.1); Prothrombin Time 15.7 SEC (10.9-12.4)
[2024-07-30 07:11] LABS: Anion Gap 8 (12-20); Blood Urea Nitrogen 19 mg/dL (9-16); Calcium 7.8 mg/dL (8.4-10.2); Carbon Dioxide 28 mmol/L (22-29); Chloride 113 mmol/L (96-108); Creatinine Clr Calc Pharmacy 56.4; Estimated Glomerular Filt Rate > 60; Glucose Random 96 mg/dL (60-115); Magnesium 2.2 mg/dL (1.6-2.6); Phosphorus 3.1 mg/dL (2.7-4.5); Potassium 3.4 mmol/L (3.3-5.1); Sodium 146 mmol/L (135-145)
[2024-07-30 07:20] LABS: Hematocrit 21.3 % (37.0-47.0); Mean Corpuscular HGB Conc 31.5 g/dl (31.0-35.0); Mean Corpuscular Hemoglobin 27.5 pg (27.0-33.0); Mean Corpuscular Volume 87.3 fL (80.0-98.0); Mean Platelet Volume 12.5 fL (9.4-12.3); Platelet Count 134 X10*3/uL (160-400); Red Blood Count 2.44 X10*6/uL (4.20-5.50); Red Cell Distribution Width 15.5 % (11.0-16.0)
[2024-07-30 07:33] LABS: White Blood Count 1.6 X10*3/uL (4.8-10.8)
[2024-07-30 07:34] LABS: Hemoglobin 6.7 g/dl (12.0-16.0)
[2024-07-30 07:57] LABS: C Reactive Protein 5.36 mg/dL (< or = 0.50)
[2024-07-30 08:45] LABS: Procalcitonin 0.43 ng/mL
[2024-07-30] MEDS: vancomycin HCL 500 MG in 0.9 % Sodium Chloride 100 ML 110 MG IV ×2 (09:22→20:27)
[2024-07-30] MEDS: levETIRAcetam 250 MG in 0.9 % Sodium Chloride 100 ML 410 MG IV ×2 (09:23→20:23)
--- NOTE | 2024-07-30 09:55 | HO.PM.IMPN ---
Subjective Subjective Date of Service: 07/30/24 Interval History: Alert. This AM answered me in Bengali that she is hungry. She squeezed my hands on command. She then fell asleep. Review of Systems Review of Systems: Yes Unobtainable due to mental status Physical Exam Vital Signs: Vital Signs: Last Vital Signs Temp 98.6 F 07/30/24 08:00 Pulse 105 H 07/30/24 08:00 Resp 19 07/30/24 08:00 BP 116/65 07/30/24 08:00 Pulse Ox 96 07/30/24 08:00 O2 Del Method Nasal Cannula 07/30/24 08:00 O2 Flow Rate 3 07/30/24 08:00 BMI result Body Mass Index 12.8 Gen: chronically ill- and weak-appearing, cachectic HEENT: sclera anicteric, moist mucus membranes, OGT cracked + tube feeds held Neck: supple Lungs: clear to auscultation bilaterally Heart: regular, tachycardic, no murmurs Abd: soft, non-tender, non-distended Ext: no edema, RUE PICC Skin: warm/well-perfused Neuro: alert, improved verbal as above, squeezes hands on command but then fell asleep and wouldn't move her feet Psych: impaired insight Objective Data Active Medications Acetaminophen (Acetaminophen Oral Liquid 650 Mg/20.3 Ml Solution) 650 mg PO Q6H PRN PRN Reason: Fever >101 Last Admin: 07/25/24 19:48 Dose: 650 mg Documented By: PALMIRA Ceftriaxone Sodium (Ceftriaxone Sodium 2 Gm Vial) 2 gm IVPUSH Q24H [facility] Last Admin: 07/29/24 08:50 Dose: 2 gm Documented By: MATEO Enoxaparin Sodium (Enoxaparin Sodium 30 Mg/0.3 Ml Syringe) 30 mg SUBCUT Q24H [facility] Last Admin: 07/29/24 14:01 Dose: 30 mg Documented By: MATEO Dextrose (D10) 250 mls @ 750 mls/hr IV Q30M PRN PRN Reason: BG <70 Levetiracetam 250 mg/ Sodium (Chloride) 102.5 mls @ 410 mls/hr IV BID [facility] Last Admin: 07/30/24 09:23 Dose: 410 mls/hr Documented By: TAVARES Vancomycin HCl 500 mg/ Sodium (Chloride) 110 mls @ 110 mls/hr IV Q12H [facility] Last Admin: 07/30/24 09:22 Dose: 110 mls/hr Documented By: TAVARES Insulin Human Lispro (Insulin Lispro 100 Unit/Ml 3 Ml Vial) 0 unit SUBCUT Q6H [facility]; Protocol Last Admin: 07/30/24 06:00 Dose: Not Given Documented By: KAUSHIK Non-Admin Reason: No Insulin Coverage Pharmacy Consult (Consult Rx Vancomycin Dosing) 1 each MISCELLANE DAILY PRN PRN Reason: Consult order Sodium Chloride (0.9 % Sodium Chloride Flush 3 Ml Syringe) 3 ml IVFLUSH QSHIFT [facility] Last Admin: 07/30/24 09:30 Dose: 3 ml Documented By: TAVARES Sodium Chloride (0.9 % Sodium Chloride Flush 10 Ml Syringe) 5 ml IVFLUSH TID [facility] Last Admin: 07/29/24 21:00 Dose: 5 ml Documented By: KAUSHIK Labs 07/30/24 06:03 07/30/24 06:03 Labs: Laboratory Results - last 24 hr 07/29/24 07/29/24 07/29/24 09:01 11:56 16:14 MCV MCH MCHC RDW Plt Count MPV Absolute Nucleated RBC Nucleated RBC % (auto) PT INR Anion Gap Estim Creat Clear Calc Estimated GFR POC Glucose 155 H Random Glucose Calcium Phosphorus Magnesium C-Reactive Protein Procalcitonin Nasal Screen MRSA (PCR) NEGATIVE Nasal S. aureus Screen POSITIVE A Nasal MRSA/S.aureus Interp SEE NOTE Random Vancomycin 17.3 Blood Type Antibody Screen Crossmatch 07/29/24 07/30/24 07/30/24 18:29 00:41 06:01 MCV MCH MCHC RDW Plt Count MPV Absolute Nucleated RBC Nucleated RBC % (auto) PT INR Anion Gap Estim Creat Clear Calc Estimated GFR POC Glucose 167 H 229 H 90 Random Glucose Calcium Phosphorus Magnesium C-Reactive Protein Procalcitonin Nasal Screen MRSA (PCR) Nasal S. aureus Screen Nasal MRSA/S.aureus Interp Random Vancomycin Blood Type Antibody Screen Crossmatch 07/30/24 07/30/24 06:03 08:26 MCV 87.3 MCH 27.5 MCHC 31.5 RDW 15.5 Plt Count 134 L MPV 12.5 H Absolute Nucleated RBC 0.000 Nucleated RBC % (auto) 0.0 PT 15.7 H INR 1.3 H Anion Gap 8 L Estim Creat Clear Calc 56.4 Estimated GFR > 60 POC Glucose Random Glucose 96 Calcium 7.8 L D Phosphorus 3.1 Magnesium 2.2 C-Reactive Protein 5.36 H Procalcitonin 0.43 Nasal Screen MRSA (PCR) Nasal S. aureus Screen Nasal MRSA/S.aureus Interp Random Vancomycin Blood Type O Positive Antibody Screen NEGATIVE Crossmatch See Detail Assessment and Plan (1) Septic shock: Status: Acute Plan hospital day 10 for 59yo F with Hermansky-Pudlak syndrome, DM2, developmental delay, HTN admitted to ICU with septic shock from pyelonephritis requiring pressor support, E coli bacteremia [sensitive to ceftriaxone]. Large unstageable cocycgeal ulcer and alk phos 1200+. Hospitazliation complicated by encephalopathy, seizure-like activity, pancytopenia, and CHICHI off pressors >48hr and stepped down to telemetry 07/27/24 septic shock due to E. coli bacteremia/pyelonephritis - ceftriaxone 07/21-, repeat BCx 07/25 negative, will need 2 wk therapy for bacteremia but anyways will be on ceftriaxone for 6 wk for osteomyelitis acute/chronic coccygeal osteomyelitis - ID consulted, recommends 6 wk of ceftriaxone + vancomycin 07/22-, Wound Care consulted: Sacrum - Off Load Pressure - Cleanse with PH balance spray or wipes, pat dry. ?Apply thin layer of Triad to wound bed - only pat and dab no scrub and rub when soiling occurs. Reapply thin layer PRN after each episode of incontinence. acute encephalopathy due to sepsis - no LP done due to thrombocytopenia and pt has been on broad-spectrum antibiotics. Today, mental status seems to be slightly improved. seizure-like activity - on levetiracetam - EEG pending severe malnutrition - on tube feeds per Nutrition recommendation, removed NGT x2, OGT placed but now appears cracked and ports won't flush; will consult ICU to re-place tube - monitor lytes daily; risk of refeeding syndrome hypoPO4 - repleted pancytopenia due to septic shock - transfused 1u pRBCs 07/28 with appropriate response; will transfuse another 1u today; daily CBC CHICHI due to ATN from septic shock - Cr improved; note that it is falsely low due to poor muscle mass DM2 - joe-dose lispro HTN - held lisinopril VTE ppx - SCDs; hold enoxaparin due to severe anemia dispo - PT/OT/SAFETY BELT INSTALLER evals In my clinical judgment, the patient requires continued inpatient hospitalization for the following reasons: IV ABX, tube feeds, transfusion Total time managing care of this patient today: 55 minutes. Quality Stroke Does the patient have a stroke diagnosis?: No VTE Prior VTE?: No VTE Risk Level:: Medical - moderate - high VTE Device Contraindication: Treatment Not Indicated VTE Drug Contraindication: N/A - Med Ordered
[2024-07-30] MEDS: cefTRIAXone sodium 2 GM VIAL IVPUSH (10:13)
[2024-07-30] MEDS: Acetaminophen 1,000 MG/100 ML PIGGYBACK 400 MG IV (11:13)
[2024-07-30] MEDS: 0.9 % Sodium Chloride 1,000 ML 999 ML IV (11:48)
[2024-07-30 11:57] LABS: Glucose, Whole Blood 152 mg/dL (60-115)
[2024-07-30 12:41] LABS: Appearance Urine Clear; Color Urine Yellow; Glucose Urine UA Negative (Negative); Leukocyte Esterase Urine Moderate (2+) (Negative); Nitrite Urine Negative (Negative); Specific Gravity - Urine 1.015 (1.005-1.025); UMIC TRIGGER UA YES; Urine Blood Small (1+) (Negative); Urine Ketones Negative (Negative); Urine Protein 30 (1+) mg/dL (Neg-Trace)
[2024-07-30 12:50] LABS: Bacteria Urine None Seen (None Seen); Hyaline Casts Urine 0-2 /LPF (0-2); Squamous Epithelial Cell Urine 0-2 /HPF (0-2)
[2024-07-30 13:57] LABS: Influenza A PCR NEGATIVE (Negative); Influenza B PCR NEGATIVE (Negative); Resp Syncy Virus RNA Qual PCR NEGATIVE (Negative); SARS COV2 PCR INHOUSE NEGATIVE (Negative)
--- NOTE | 2024-07-30 15:33 | PC.NURSE ---
New OG tube placed by MD at bedside. Chest xry confirmed placement. Glucerna restarted at 10mLs/hr
[2024-07-30 17:06] LABS: Glucose, Whole Blood 145 mg/dL (60-115)
[2024-07-30 18:44] LABS: Vancomycin Trough 18.8 mcg/mL (10.0-20.0)
[2024-07-30] MEDS: 0.9 % Sodium Chloride Flush 10 ML SYRINGE 5 ML IVFLUSH (20:27)
[2024-07-30 23:25] LABS: Glucose, Whole Blood 163 mg/dL (60-115)
[2024-07-31] VITALS (8 sets, daily range): BP systolic 100–129; BP diastolic 64–83; PULSE 96–114; RESP 17–18; TEMP 36.2–38.7; O2SAT 92–98; BMI 14.7
[2024-07-31 05:32] LABS: Glucose, Whole Blood 147 mg/dL (60-115)
[2024-07-31 06:40] LABS: Hematocrit 31.8 % (37.0-47.0); Hemoglobin 10.3 g/dl (12.0-16.0); Mean Corpuscular HGB Conc 32.4 g/dl (31.0-35.0); Mean Corpuscular Hemoglobin 29.3 pg (27.0-33.0); Mean Corpuscular Volume 90.3 fL (80.0-98.0); Mean Platelet Volume 12.4 fL (9.4-12.3); Platelet Count 198 X10*3/uL (160-400); Red Blood Count 3.52 X10*6/uL (4.20-5.50); White Blood Count 2.9 X10*3/uL (4.8-10.8)
[2024-07-31 07:02] LABS: Anion Gap 13 (12-20); Blood Urea Nitrogen 21 mg/dL (9-16); Calcium 7.8 mg/dL (8.4-10.2); Carbon Dioxide 25 mmol/L (22-29); Chloride 114 mmol/L (96-108); Creatinine Clr Calc Pharmacy 61.6; Estimated Glomerular Filt Rate > 60; Glucose Random 160 mg/dL (60-115); Magnesium 2.4 mg/dL (1.6-2.6); Phosphorus 2.8 mg/dL (2.7-4.5); Potassium 3.8 mmol/L (3.3-5.1); Sodium 148 mmol/L (135-145)
[2024-07-31] MEDS: cefTRIAXone sodium 2 GM VIAL IVPUSH (07:59)
[2024-07-31] MEDS: vancomycin HCL 500 MG in 0.9 % Sodium Chloride 100 ML 110 MG IV (07:59)
[2024-07-31] MEDS: 0.9 % Sodium Chloride Flush 3 ML SYRINGE IVFLUSH ×2 (07:59→22:31)
[2024-07-31] MEDS: 0.9 % Sodium Chloride Flush 10 ML SYRINGE 5 ML IVFLUSH ×2 (08:00→22:35)
[2024-07-31] MEDS: Acetaminophen Supp 650 MG SUPP.RECT PR (08:36)
[2024-07-31] MEDS: levETIRAcetam 250 MG in 0.9 % Sodium Chloride 100 ML 410 MG IV ×2 (10:05→22:30)
--- NOTE | 2024-07-31 10:14 | MHC.CM.PN ---
PT indicates that Patient is likely to require rehab at time of dc;CM will follow.
--- NOTE | 2024-07-31 10:26 | P.PNIM_ITS ---
Subjective Subjective Date of Service: 07/31/24 Interval History: seen and examined this AM doesnt appear to be in distress Physical Exam 2 Vital Signs: Vital Signs: Last Vital Signs Temp 98.6 F 07/31/24 10:05 Pulse 114 H 07/31/24 07:33 Resp 18 07/31/24 07:33 BP 102/64 07/31/24 07:33 Pulse Ox 94 07/31/24 07:33 O2 Del Method Nasal Cannula 07/31/24 07:33 O2 Flow Rate 3 07/31/24 07:33 BMI result Body Mass Index 14.7 Const: Other: Chronically ill-appearing Lungs clear to auscultation Tachycardia Abdomen soft and nondistended Alert but not talking coccyx dressing in place Objective Data Active Medications Acetaminophen (Acetaminophen Supp 650 Mg Supp.Rect) 650 mg [place] Q6H PRN PRN Reason: Fever >100.4 Last Admin: 07/31/24 08:36 Dose: 650 mg Documented By: TAVARES Ceftriaxone Sodium (Ceftriaxone Sodium 2 Gm Vial) 2 gm IVPUSH Q24H [facility] Last Admin: 07/31/24 07:59 Dose: 2 gm Documented By: TAVARES Enoxaparin Sodium (Enoxaparin Sodium 30 Mg/0.3 Ml Syringe) 30 mg SUBCUT Q24H [facility] Last Admin: 07/29/24 14:01 Dose: 30 mg Documented By: MATEO Dextrose (D10) 250 mls @ 750 mls/hr IV Q30M PRN PRN Reason: BG <70 Levetiracetam 250 mg/ Sodium (Chloride) 102.5 mls @ 410 mls/hr IV BID [facility] Last Admin: 07/31/24 10:05 Dose: 410 mls/hr Documented By: TAVARES Vancomycin HCl 500 mg/ Sodium (Chloride) 110 mls @ 110 mls/hr IV Q12H [facility] Last Infusion: 07/31/24 10:11 Dose: Infused Documented By: TAVARES Insulin Human Lispro (Insulin Lispro 100 Unit/Ml 3 Ml Vial) 0 unit SUBCUT Q6H [facility]; Protocol Last Admin: 07/31/24 05:30 Dose: Not Given Documented By: ANEESH Non-Admin Reason: POC out of range Pharmacy Consult (Consult Rx Vancomycin Dosing) 1 each MISCELLANE DAILY PRN PRN Reason: Consult order Sodium Chloride (0.9 % Sodium Chloride Flush 3 Ml Syringe) 3 ml IVFLUSH QSHIFT [facility] Last Admin: 07/31/24 07:59 Dose: 3 ml Documented By: TAVARES Sodium Chloride (0.9 % Sodium Chloride Flush 10 Ml Syringe) 5 ml IVFLUSH TID [facility] Last Admin: 07/31/24 08:00 Dose: 5 ml Documented By: TAVARES Labs 07/31/24 05:37 07/31/24 05:37 Labs: Laboratory Results - last 24 hr 07/30/24 07/30/24 07/30/24 08:26 11:54 12:19 MCV MCH MCHC RDW Plt Count MPV Absolute Nucleated RBC Nucleated RBC % (auto) Anion Gap Estim Creat Clear Calc Estimated GFR POC Glucose 152 H Random Glucose Calcium Phosphorus Magnesium Urine Color Yellow Urine Appearance Clear Urine pH 6.0 Ur Specific [place] 1.015 Urine Protein 30 (1+) H Urine Glucose (UA) Negative Urine Ketones Negative Urine Blood Small (1+) H Urine Nitrite Negative Ur Leukocyte Esterase Moderate (2+) H Urine RBC 3-5 H Urine WBC 6-10 Ur Squamous Epith Cells 0-2 Urine Bacteria None Seen Hyaline Casts 0-2 Urine Yeast Present Vancomycin Trough Influenza Type A (PCR) NEGATIVE Influenza Type B (PCR) NEGATIVE RSV RNA Qual (PCR) NEGATIVE SARS-CoV-2 RNA (RT-PCR) NEGATIVE Blood Type O Positive Antibody Screen NEGATIVE Crossmatch See Detail 07/30/24 07/30/24 07/30/24 17:00 18:03 23:19 MCV MCH MCHC RDW Plt Count MPV Absolute Nucleated RBC Nucleated RBC % (auto) Anion Gap Estim Creat Clear Calc Estimated GFR POC Glucose 145 H 163 H Random Glucose Calcium Phosphorus Magnesium Urine Color Urine Appearance Urine pH Ur Specific [place] Urine Protein Urine Glucose (UA) Urine Ketones Urine Blood Urine Nitrite Ur Leukocyte Esterase Urine RBC Urine WBC Ur Squamous Epith Cells Urine Bacteria Hyaline Casts Urine Yeast Vancomycin Trough 18.8 Influenza Type A (PCR) Influenza Type B (PCR) RSV RNA Qual (PCR) SARS-CoV-2 RNA (RT-PCR) Blood Type Antibody Screen Crossmatch 07/31/24 07/31/24 05:28 05:37 MCV 90.3 MCH 29.3 MCHC 32.4 RDW 16.0 Plt Count 198 D MPV 12.4 H Absolute Nucleated RBC 0.000 Nucleated RBC % (auto) 0.0 Anion Gap 13 Estim Creat Clear Calc 61.6 Estimated GFR > 60 POC Glucose 147 H Random Glucose 160 H Calcium 7.8 L Phosphorus 2.8 Magnesium 2.4 Urine Color Urine Appearance Urine pH Ur Specific [place] Urine Protein Urine Glucose (UA) Urine Ketones Urine Blood Urine Nitrite Ur Leukocyte Esterase Urine RBC Urine WBC Ur Squamous Epith Cells Urine Bacteria Hyaline Casts Urine Yeast Vancomycin Trough Influenza Type A (PCR) Influenza Type B (PCR) RSV RNA Qual (PCR) SARS-CoV-2 RNA (RT-PCR) Blood Type Antibody Screen Crossmatch Microbiology Microbiology Results: Microbiology 07/25/24 08:59 Blood Culture - Final Blood - Venous No growth after 5 days. 07/25/24 08:59 Blood Culture - Final Blood - Venous No growth after 5 days. Assessment and Plan (1) Septic shock: Status: Acute Plan 59yo F with Hermansky-Pudlak syndrome, DM2, developmental delay, HTN admitted to ICU with septic shock from pyelonephritis requiring pressor support, E coli bacteremia [sensitive to ceftriaxone]. Large unstageable cocycgeal ulcer and alk phos 1200+. Hospitazliation complicated by encephalopathy, seizure-like activity, pancytopenia, and CHICHI off pressors >48hr and stepped down to telemetry 07/27/24 septic shock due to E. coli bacteremia/pyelonephritis - ceftriaxone 07/21-, repeat BCx 07/25 negative, will need 2 wk therapy for bacteremia but anyways will be on ceftriaxone for 6 wk for osteomyelitis febrile 07/29 evening -- repeat cx sent, negative to date acute/chronic coccygeal osteomyelitis - ID consulted, recommends 6 wk of ceftriaxone + vancomycin 07/22-, Wound Care consulted: Sacrum - Off Load Pressure - Cleanse with PH balance spray or wipes, pat dry. ?Apply thin layer of Triad to wound bed - only pat and dab no scrub and rub when soiling occurs. Reapply thin layer PRN after each episode of incontinence. acute encephalopathy due to sepsis - no LP done due to thrombocytopenia and pt has been on broad-spectrum antibiotics. Today, mental status seems to be slightly improved. seizure-like activity - on levetiracetam - EEG pending severe malnutrition - on tube feeds per Nutrition recommendation, removed NGT x2, OGT placed but now appears cracked and ports won't flush; will consult ICU to re-place tube - monitor lytes daily; risk of refeeding syndrome hypoPO4 - repleted pancytopenia due to septic shock - transfused 1u pRBCs 07/28 with appropriate response; transfused second unit 07/30 with improvement will give priosec for gi prophylaxis -- if continues to drop, may need gi eval CHICHI due to ATN from septic shock HyperNa - Cr improved; note that it is falsely low due to poor muscle mass SNa 148 -- will start d5w DM2 - joe-dose lispro HTN - held lisinopril VTE ppx - SCDs; hold enoxaparin due to severe anemia dispo - PT/OT/DOCTOR OF VETERINARY MEDICINE evals In my clinical judgment, the patient requires continued inpatient hospitalization for the following reasons: IV ABX, tube feeds, transfusion Total time managing care of this patient today: 55 minutes. Quality Stroke Does the patient have a stroke diagnosis?: No VTE Prior VTE?: No VTE Risk Level:: Medical - moderate - high VTE Device Contraindication: Treatment Not Indicated VTE Drug Contraindication: N/A - Med Ordered
--- NOTE | 2024-07-31 10:57 | MHC.CLN ---
F/U REVIEWED LABS PT RECEIVING TF GLUCERNA AT MAX GOAL AT 45ML/HR WITH 30ML PROSOURCE AND 120ML FREE WATER FLUSHES Q 8 HRS PROVIDES 1140KCALS (28KCALS/KG), 60G PROTEIN (1.5G/KG), 1281ML TOTAL FREE WATER FROM FORMULA AND FLUSHES (31ML/KG) RECOMMEND INCREASING FREE WATER FLUSHES TO 120ML Q 6 HRS TO PROVIDE 1401ML TOTAL WATER FROM FORMULA AND FLUSHES (37ML/KG) MONITOR TOLERANCE AND LYTES
[2024-07-31 11:17] LABS: Glucose, Whole Blood 209 mg/dL (60-115)
[2024-07-31] MEDS: Pantoprazole Sodium 40 MG/10 ML VIAL IVPUSH (12:58)
[2024-07-31] MEDS: Insulin Lispro 100 UNIT/ML 3 ML VIAL SUBCUT ×2 (12:58→18:09)
[2024-07-31] MEDS: Dextrose 5 % 1,000 ML 80 ML IVCONT (13:09)
--- NOTE | 2024-07-31 13:54 | MHC.SL.SWA ---
Speech Pathologist Impression: Risk of Aspiration, Oropharyngeal Dysphagia Risk of Aspiration Due to: Lethargy Reduced Cognition Dysphasia Diet Status: Supplemental PO NDD1/THIN Liquid Consistency and Strategies for Safe Swallow: Solid Food Consistency: Dietary Recommendations: Supplemental Additional Modifications to Solid Foods: Patient tolerated trials of PUREED (NDD1) solids and THIN liquids by spoon. Patient presents with oral weakness, mildly delayed oral phase, and mildly delayed swallow trigger. She tolerated these textures well with no overt s/s of aspiration and good oral clearance. Patient on NGT, with waxing and waning levels of alertness. Recommend start with supplemental feedings (NDD1/thin) to be given by INTELLECTUAL PROPERTY PARALEGAL or nursing staff, meds via NGT, with potential removal of NGT if patient's mentation continues to improve. INTELLECTUAL PROPERTY PARALEGAL will re-assess tomorrow a.m. Oral Medication Intake: NPO Please contact the pharmacy regarding appropriate crushable or liquid drug formulations that are available whenever modified delivery is recommended. Compensatory Strategies and Precautions to be Taken for Safe Swallow: Sitting Upright (90 deg) No Straw Liquids from Spoon Small Bites and Sips Alternate Liquids/Solids Rate of Ingestion Change Oral Check Supervision While Eating and Drinking for Safe Swallow: Total Assistance (1:1) Recommendation for Speech: Inpatient Speech Therapy Comment: Frequency/Duration: PRN M-F Date Range for Service Req: Timeline to reassess: PRN Director Of Catering Sales Clinican/Clinical Fellow: No Supervisory Statement: I have reviewed and agree with the student/clinical fellow's documentation: N/A Speech Language Pathologist: Nikki Diaz M.A., CCC-[employer]
[2024-07-31 18:01] LABS: Glucose, Whole Blood 240 mg/dL (60-115)
[2024-07-31 18:28] LABS: Vancomycin Random 19.4 mcg/mL (15-20)
--- NOTE | 2024-07-31 18:47 | HE.PHANOTE ---
RE [facility] Patients level came back this evening at 19.4. Will move from Q12H to Q24H. Pushing back dose as much as I can, changed to 2300 so that pharmacy can be in when level comes back. Next draw to be taken 08/01 @2100
[2024-07-31] MEDS: vancomycin HCL 1,000 MG in 0.9 % Sodium Chloride 250 ML 270 MG IV (23:16)
[2024-07-31 23:48] LABS: Glucose, Whole Blood 219 mg/dL (60-115)
--- NOTE | 2024-08-01 | EEG_ITS ---
FINDINGS: The background activity consists of a moderate voltage 5 to 6 hertz diffuse theta with superimposed 1 to 2 hertz diffuse delta, which is seen more prominent in the anterior quadrant. Muscle artifacts are seen in the temporal region. Photic stimulation and hyperventilation were omitted. IMPRESSION: This is an abnormal EEG due to moderately severe diffuse background slowing consistent with diffuse encephalopathic process. No clearly epileptiform discharges are seen. MD KORI Barton/KARY / [id number]
[2024-08-01] MEDS: Dextrose 5 % 1,000 ML 80 ML IVCONT ×2 (00:05→13:37)
[2024-08-01] MEDS: Insulin Lispro 100 UNIT/ML 3 ML VIAL SUBCUT ×4 (00:05→23:46)
[2024-08-01 03:09] VITALS: BP 100/65; PULSE 93; RESP 17; TEMP 36.5; O2SAT 95
[2024-08-01 06:00] VITALS: BMI 17.2
[2024-08-01] MEDS: Pantoprazole Sodium 40 MG/10 ML VIAL IVPUSH (06:11)
[2024-08-01 06:19] LABS: Glucose, Whole Blood 204 mg/dL (60-115)
[2024-08-01 07:32] VITALS: BP 142/76; PULSE 98; RESP 18; TEMP 36.5; O2SAT 98
[2024-08-01 07:33] LABS: Creatinine Clr Calc Pharmacy 60.3; Estimated Glomerular Filt Rate > 60
[2024-08-01] MEDS: cefTRIAXone sodium 2 GM VIAL IVPUSH (08:47)
[2024-08-01] MEDS: 0.9 % Sodium Chloride Flush 3 ML SYRINGE IVFLUSH ×2 (08:47→15:28)
--- NOTE | 2024-08-01 09:01 | HO.WOUND ---
Wound Consult: Follow up 59yr old?female admitted to [facility] [place] 07[facility]24 - See progress notes and H&P for detailed history.? Wound consult placed for sacral wound POA.? Sacrum 07/24/24 Sacrum 08/01/24 Etiology: ??Stage 4 Pressure Injury - Admitted with Deep Tisssue Injury in Evolution Measurements: 4cm x 3.8cm x 0.8cm with undermining from 6-9 o'clock max depth of 0.5cm Wound Bed: marbled pink moist wound bed with moist fibrinous slough small pin point exposed rough bone Drainage / Odor: mild odor noted - macias yellow serosang drainage Edges: ? inattached Darby wound: ?MASD - and Fungal dermatitis - Firm swelling noted to labia - TT to provider Pain: pain assessed Goals of Treatment: ? Lightly pack with Durafiber AG due to frequent stools not able to use Foam dressing at this time use ABD pad. TT to provider to consider ordering topical antifungal powder The patients forehead is noted for a small stable scan reportedly from removal of the oxygen sensing probe. MARSI (Medical Adhesive Related Skin Injury) - no topical interventions at this time as options are limited given use of oxygen in the general area and the scab is stable and no erythema noted. unchanged on todays assessment . The right nose noted for wound - chart review reveals suspected adhesive injury due to tube securement. Firm black scab noted - no topical interventions at this time as options are limited given use of oxygen in the general area and the scab is stable and no erythema noted. Should patient begin to pick at site direct care team may apply hydrocolloid dressing to allow for autolytic debridement and moist wound healing, change every 3-4 days. . Recommendations: 1. Turn and Reposition every 2 hours and as needed for patient comfort.? Use pillows or wedges to support off loading positions. 2. Off Load all bony prominences with use of pillows and heel boots if needed.? Apply Preventative foams where needed. ? 3. Monitor for incontinence and moisture control, use barrier creams when needed for prevention and treatment. 4. Provide adequate and supplemental nutrition.? 5. Continue low air loss mattress. 6. When applicable maintain blood glucose levels per Providers order. 7. Sacrum - Off Load Pressure - Cleanse and irrigate with NS, pat dry. ?Apply antifungal powder to periwound followed by thin layer of Triad, lightly pack wound bed with Durafiber AG, cover with dry gauze, ABD pad and secure in place. Change every other day and PRN for soiling. 8. Right Nose - Should patient begin to pick at scab on nose - Cleanse with NS cover with hydrocolloid change every 3-4 days. Otherwise may leave STRETCHER DRIER OPERATOR at this time. Re-consult wound care Nurse for wound deterioration or wound changes.
[2024-08-01 09:08] LABS: OBS Int Ctl Valid YES; OBS1 POSITIVE (NEGATIVE)
--- NOTE | 2024-08-01 10:16 | MHC.CM.PN ---
Per ROUNDS discussion, Patient is not yet medically cleared for dc (IV Ceftriaxone, IV Vanco, IV Levetiracetam, IV Protonix);Per PT, Patient will likely need rehab. CM will continue to follow.
[2024-08-01] MEDS: Nystatin Powder 15 GM BOTTLE 1 APPL TOPICAL ×3 (10:51→21:41)
[2024-08-01] MEDS: Clotrimazole 1 % Cream 15 GM TUBE 1 APPL TOPICAL ×2 (10:51→21:41)
[2024-08-01] MEDS: levETIRAcetam 250 MG in 0.9 % Sodium Chloride 100 ML 410 MG IV (10:52)
[2024-08-01 11:13] VITALS: BP 141/79; PULSE 102; RESP 18; TEMP 36.5; O2SAT 96
--- NOTE | 2024-08-01 11:46 | MHC.SPEECHCO ---
Pt not awakening to voice or encouragement to eat. Per RN she has had a busy morning with wound care and EEG. DEPARTMENT HEAD requested message if Pt more alert this afternoon. She remains with NG tube feedings at this time with recommendation for supplemental PO of Puree Solids and Thin Liquids.
[2024-08-01 11:54] LABS: Glucose, Whole Blood 111 mg/dL (60-115)
[2024-08-01 12:11] LABS: Sodium 143 mmol/L (135-145)
[2024-08-01 12:46] LABS: Anion Gap 11 (12-20)
[2024-08-01 12:49] LABS: Blood Urea Nitrogen 18 mg/dL (9-16); Calcium 7.8 mg/dL (8.4-10.2); Carbon Dioxide 25 mmol/L (22-29); Chloride 110 mmol/L (96-108); Glucose Random 199 mg/dL (60-115); Potassium 3.7 mmol/L (3.3-5.1)
[2024-08-01 12:57] LABS: Hematocrit 29.2 % (37.0-47.0); Hemoglobin 9.7 g/dl (12.0-16.0)
[2024-08-01 13:05] LABS: Ammonia 35 umol/L (13-55)
--- NOTE | 2024-08-01 15:32 | P.PNIM_ITS ---
Subjective Subjective Date of Service: 08/01/24 Interval History: E. coli bacteremia/pyelonephritis Review of Systems seems similar awake no new c/o. Physical Exam 2 Vital Signs: Vital Signs: Last Vital Signs Temp 97.7 F 08/01/24 11:13 Pulse 102 H 08/01/24 11:13 Resp 18 08/01/24 11:13 BP 141/79 H 08/01/24 11:13 Pulse Ox 96 08/01/24 11:13 O2 Del Method Nasal Cannula 08/01/24 11:13 O2 Flow Rate 3 08/01/24 11:13 BMI result Body Mass Index 17.2 Chronically ill-appearing Lungs clear to auscultation Tachycardia Abdomen soft and nondistended Alert but not talking coccyx dressing in place Objective Data Active Medications Acetaminophen (Acetaminophen Supp 650 Mg Supp.Rect) 650 mg [place] Q6H PRN PRN Reason: Fever >100.4 Last Admin: 07/31/24 08:36 Dose: 650 mg Documented By: TAVARES Ceftriaxone Sodium (Ceftriaxone Sodium 2 Gm Vial) 2 gm IVPUSH Q24H [facility] Last Admin: 08/01/24 08:47 Dose: 2 gm Documented By: MATEO Clotrimazole (Clotrimazole 1 % Cream 15 Gm Tube) 1 appl TOPICAL BID [facility]; Protocol Last Admin: 08/01/24 10:51 Dose: 1 appl Documented By: MATEO Enoxaparin Sodium (Enoxaparin Sodium 30 Mg/0.3 Ml Syringe) 30 mg SUBCUT Q24H [facility] Last Admin: 07/29/24 14:01 Dose: 30 mg Documented By: MATEO Dextrose (D10) 250 mls @ 750 mls/hr IV Q30M PRN PRN Reason: BG <70 Levetiracetam 250 mg/ Sodium (Chloride) 102.5 mls @ 410 mls/hr IV BID [facility] Last Infusion: 08/01/24 11:14 Dose: Infused Documented By: MATEO Dextrose (D5w) 1,000 mls @ 80 mls/hr IVCONT .[id number] [facility] Last Admin: 08/01/24 13:37 Dose: 80 mls/hr Documented By: MATEO Vancomycin HCl 1,000 mg/ (Sodium Chloride) 270 mls @ 270 mls/hr IV Q24H [facility] Last Infusion: 08/01/24 00:16 Dose: Infused Documented By: KIMANI Dextrose/Sodium Chloride (D5ns) 1,000 mls @ 80 mls/hr IVCONT .[id number] [facility] Last Admin: 08/01/24 13:08 Dose: Not Given Documented By: MATEO Non-Admin Reason: Physician Held Med Insulin Human Lispro (Insulin Lispro 100 Unit/Ml 3 Ml Vial) 0 unit SUBCUT Q6H [facility]; Protocol Last Admin: 08/01/24 13:00 Dose: Not Given Documented By: MATEO Non-Admin Reason: No Insulin Coverage Nystatin (Nystatin Powder 15 Gm Bottle) 1 appl TOPICAL TID [facility]; Protocol Last Admin: 08/01/24 15:27 Dose: 1 appl Documented By: MATEO Pantoprazole Sodium (Pantoprazole Sodium 40 Mg/10 Ml Vial) 40 mg IVPUSH DAILY@0630 [facility] Last Admin: 08/01/24 06:11 Dose: 40 mg Documented By: KIMANI Sodium Chloride (0.9 % Sodium Chloride Flush 3 Ml Syringe) 3 ml IVFLUSH QSHIFT [facility] Last Admin: 08/01/24 15:28 Dose: 3 ml Documented By: MATEO Sodium Chloride (0.9 % Sodium Chloride Flush 10 Ml Syringe) 5 ml IVFLUSH TID [facility] Last Admin: 08/01/24 15:28 Dose: Not Given Documented By: MATEO Non-Admin Reason: IV Running Labs 08/01/24 12:47 08/01/24 06:23 Labs: Laboratory Results - last 24 hr 07/31/24 07/31/24 07/31/24 17:56 18:02 23:41 Anion Gap Estim Creat Clear Calc Estimated GFR POC Glucose 240 H 219 H Random Glucose Calcium Ammonia Stool Occult Blood Random Vancomycin 19.4 08/01/24 08/01/24 08/01/24 06:08 06:23 08:59 Anion Gap 11 L Estim Creat Clear Calc 60.3 Estimated GFR > 60 POC Glucose 204 H Random Glucose 199 H Calcium 7.8 L Ammonia Stool Occult Blood POSITIVE Random Vancomycin 08/01/24 08/01/24 11:17 12:47 Anion Gap Estim Creat Clear Calc Estimated GFR POC Glucose 111 Random Glucose Calcium Ammonia 35 Stool Occult Blood Random Vancomycin Microbiology Microbiology Results: Microbiology 07/30/24 10:51 Blood Culture - Preliminary Blood - Central Line No growth after 48 hours. 07/30/24 Unknown Urine Culture - Final Urine Catheterized - Cannon Catheter Rachel albicans Assessment and Plan (1) Septic shock: Status: Acute Plan 59yo F with Hermansky-Pudlak syndrome, DM2, developmental delay, HTN admitted to ICU with septic shock from pyelonephritis requiring pressor support, E coli bacteremia [sensitive to ceftriaxone]. Large unstageable cocycgeal ulcer and alk phos 1200+. Hospitazliation complicated by encephalopathy, seizure-like activity, pancytopenia, and CHICHI off pressors >48hr and stepped down to telemetry 07/27/24 septic shock due to E. coli bacteremia/pyelonephritis - ceftriaxone 07/21-, repeat BCx 07/25 negative, will need 2 wk therapy for bacteremia but anyways will be on ceftriaxone for 6 wk for osteomyelitis febrile 07/29 evening -- repeat cx sent, negative to date acute/chronic coccygeal osteomyelitis - ID consulted, recommends 6 wk of ceftriaxone + vancomycin 07/22-, Wound Care consulted: Sacrum - Off Load Pressure - Cleanse with PH balance spray or wipes, pat dry. ?Apply thin layer of Triad to wound bed - only pat and dab no scrub and rub when soiling occurs. Reapply thin layer PRN after each episode of incontinence. wound care:sacral wound(POA). Turn and Reposition every 2 hours and as needed for patient comfort.? Use pillows or wedges to support off loading positions. Off Load all bony prominences with use of pillows and heel boots if needed.? Apply Preventative foams where needed. ? Monitor for incontinence and moisture control, use barrier creams when needed for prevention and treatment. Provide adequate and supplemental nutrition.? Continue low air loss mattress. When applicable maintain blood glucose levels per Providers order. Sacrum - Off Load Pressure - Cleanse and irrigate with NS, pat dry. ?Apply antifungal powder to periwound followed by thin layer of Triad, lightly pack wound bed with Durafiber AG, cover with dry gauze, ABD pad and secure in place. Change every other day and PRN for soiling. Right Nose - Should patient begin to pick at scab on nose - Cleanse with NS cover with hydrocolloid change every 3-4 days. Otherwise may leave [facility] at this time acute encephalopathy due to sepsis electrolytes ,ammonia seems fine sats seems fine,tapering oxygen as per chart review- no LP done due to thrombocytopenia and pt has been on broad-spectrum antibiotics. Today, mental status seems to be somewhat improvin seizure-like activity - on levetiracetam - EEG pending added neurology eval for acute encephalopathy as above ,also ?seizure. severe malnutrition- on tube feeds per Nutrition recommendation, removed NGT x2, OGT -replaced in 07/30/24 . monitor lytes daily; risk of refeeding syndrome hypoPO4- repleted. pancytopenia due to septic shock - transfused 1u pRBCs 07/28 with appropriate response; transfused second unit 07/30 with improvement will give priosec for gi prophylaxis -- if continues to drop, may need gi eval CHICHI due to ATN from septic shock HyperNa - Cr improved; note that it is falsely low due to poor muscle mass SNa 148 -- will start d5w DM2 - joe-dose lispro HTN - held lisinopril VTE ppx - SCDs; hold enoxaparin due to severe anemia dispo - PT/OT/SIZING MACHINE AND DRIER OPERATOR evals In my clinical judgment, the patient requires continued inpatient hospitalization for the following reasons: IV ABX, tube feeds, neurology eval. Total time managing care of this patient today: 55 minutes. Quality Stroke Does the patient have a stroke diagnosis?: No VTE Prior VTE?: No VTE Risk Level:: Medical - moderate - high VTE Device Contraindication: Treatment Not Indicated VTE Drug Contraindication: N/A - Med Ordered
[2024-08-01 15:45] VITALS: BP 132/73; PULSE 109; RESP 19; TEMP 36.8; O2SAT 91
--- NOTE | 2024-08-01 17:00 | PC.NURSE ---
Cannon catheter discontinued at 1700, patient tolerated procedure well, patient due to void by 2300, external catheter placed
[2024-08-01 17:36] LABS: Glucose, Whole Blood 258 mg/dL (60-115)
[2024-08-01 20:00] VITALS: BP 137/70; PULSE 112; RESP 19; TEMP 36.8; O2SAT 98
--- NOTE | 2024-08-01 20:22 | MHC.SL.DTX ---
Dysphagia Diet modifications: Last documented Solid diet consistencies: Pureed (NDD1) Last documented Liquid consistency: Thin Changes made to current diet?: No Liquid Consistency and Strategies: Liquid Intake Recommendation: Thin Compensatory Strategies for Safe Swallow: Small Sips Compensatory Strategies for Safe Swallow(b): Sitting Upright (90 deg) Small Bites and Sips Alternate Liquids/Solids Rate of Ingestion Change Oral Check Solid Food Consistency: Dietary Recommendations: Pureed (NDD1) Additional Modifications to Solids: Recommend continue Puree Solids and Thin Liquids. Medications Crushed in Puree. She requires 1:1 Feeding Assistance. Prior to PO administration, ensure adequate alertness, repositioning upright with towels/pillow placed to the right side of head and neck to maintain midline posture during feeding. She benefited today from frequent verbal cues about what was being presented to her. CERTIFIED MASTER LOCKSMITH will continue to follow. Monitor percentage of meal completion and consult with RD to determine if she is ready to remove her NG Tube. Oral Medication Intake: Crushed with Puree Strategies and Precautions to be Taken for Safe Swallow: Sitting Upright (90 deg) Small Bites and Sips Alternate Liquids/Solids Rate of Ingestion Change Oral Check Supervision While Eating and/Drinking: Total Assistance (1:1) Foods to Avoid: Mixed consistencies. Swallowing Recommended Treatments: Compens. Strategy Educat. Level of Impact on: Daily activities: Severe Interpersonal interactions: Education: None Employment: None Community: Moderate Prognosis for Improvement: Fair Recommendation for Speech: Inpatient Speech Therapy Comment: Frequency/Duration: PRN M-F Date Range for Service Req: Timeline to reassess: PRN Additional Comments: Treatment: CERTIFIED MASTER LOCKSMITH attempted to see Pt this morning, however she was not able to respond verbally or remain alert to safely participate in PO trials. RN notified, reports that she had intensive wound care this morning and just came back from an EEG. CERTIFIED MASTER LOCKSMITH requested she contact via text if Pt became more appropriate later in the day. RN notified CERTIFIED MASTER LOCKSMITH after Lunch. CERTIFIED MASTER LOCKSMITH and RN assisted with repositioning the patient. She became more alert and was answering questions appropriately. She continued to require constant verbal encouragement and repositioning of her head to the left. She favors her right side, which is where her wounds are located, per RN. RN placed towels on the right side of her head and neck which were successful in maintaining a midline posture of her head during feeding. She was provided oral care with some resistance, but were successful in removing dried secretions from her oral cavity. With continued verbal cues, she was able to participate in effortful trials of Puree Solids and Thin Liquids. No overt s/s of aspiration were observed across trials. She tolerated Thin Liquids and Puree Solids via administered Spoon bite. Also Thin Liquids were tolerated via administered straw sip. Recommend continue Puree Solids and Thin Liquids. Medications Crushed in Puree. She requires 1:1 Feeding Assistance. Prior to PO administration, ensure adequate alertness, repositioning upright with towels/pillow placed to the right side of head and neck to maintain midline posture during feeding. She benefited today from frequent verbal cues about what was being presented to her. CERTIFIED MASTER LOCKSMITH will continue to follow. Inspector And Sorter Clinican/Clinical Fellow: No Supervisory Statement: I have reviewed and agree with the student/clinical fellow's documentation: N/A Speech Language Pathologist: Kevan Matias M.A., [facility]-CERTIFIED MASTER LOCKSMITH
[2024-08-01] MEDS: 0.9 % Sodium Chloride Flush 10 ML SYRINGE 5 ML IVFLUSH (21:00)
[2024-08-01] MEDS: levETIRAcetam 250 MG in 0.9 % Sodium Chloride 100 ML 41 MG IV (21:41)
[2024-08-01] MEDS: vancomycin HCL 500 MG in 0.9 % Sodium Chloride 100 ML 110 MG IV (23:29)
[2024-08-01 23:47] LABS: Glucose, Whole Blood 229 mg/dL (60-115)
[2024-08-02] VITALS (7 sets, daily range): BP systolic 106–134; BP diastolic 59–80; PULSE 102–117; RESP 16–20; TEMP 36.1–37.7; O2SAT 90–97; BMI 17.6
[2024-08-02] MEDS: Dextrose 5 % 1,000 ML 80 ML IVCONT (02:30)
--- NOTE | 2024-08-02 03:51 | PC.NURSE ---
Alert/oriented to person and hospital . Sinus tach on tele. Turned and repositioned every 2-4 hours for skin care and comfort. Replaced dressing on coccyx d/t incontinent stool and urine. Patient was due to void after collado removal by 2300. Patient was found to be soaked in urine. RN bladder scanned for 350 but as soon as he fininished bladder scanning the patient stated that she had to urinate and was incontinent again. Attempted to remove oxygen but desat to 87%. Re-applied 2L n/c as before. No issues swallowing thin liquids through a straw when high fowlers. No acute issues tonight. Will continue to monitor.
[2024-08-02 04:21] LABS: Glucose, Whole Blood 207 mg/dL (60-115)
[2024-08-02] MEDS: Pantoprazole Sodium 40 MG/10 ML VIAL IVPUSH (06:02)
[2024-08-02 06:07] LABS: Glucose, Whole Blood 204 mg/dL (60-115)
[2024-08-02] MEDS: Insulin Lispro 100 UNIT/ML 3 ML VIAL SUBCUT ×3 (06:07→20:30)
[2024-08-02 07:25] LABS: Creatinine Clr Calc Pharmacy 67.7; Estimated Glomerular Filt Rate > 60
[2024-08-02] MEDS: cefTRIAXone sodium 2 GM VIAL IVPUSH (07:48)
[2024-08-02] MEDS: levETIRAcetam 250 MG in 0.9 % Sodium Chloride 100 ML 410 MG IV ×2 (09:21→22:19)
[2024-08-02] MEDS: Clotrimazole 1 % Cream 15 GM TUBE 1 APPL TOPICAL ×2 (09:26→22:25)
[2024-08-02] MEDS: Nystatin Powder 15 GM BOTTLE 1 APPL TOPICAL ×3 (09:26→22:25)
--- NOTE | 2024-08-02 10:11 | MHC.CLN ---
F/U REVIEWED LABS PT CONTINUES TO RECEIVE TF GLUCERNA AT MAX GOAL OF 45ML/HR WITH 30ML PROSOURCE AND 120ML FREE WATER FLUSHES Q 6 HRS PROVIDES 1140KCALS (25KCALS/KG), 60G PROTEIN (1.3G/KG), 1401ML TOTAL FREE WATER FROM FORMULA AND FLUSHES (31ML/KG) SMALL ENGINE MECHANIC RECOMMENDING PUREED DIET WITH 1:1 FEED VISITED WITH PT DURING BREAKFAST AND TAKING PO THIS MORNING WITH 1:1 ASSIST FROM HOME CARE MUSIC THERAPIST PO 10% X1 MEAL 07/31 CONTINUE CURRENT TF UNTIL PO INTAKE IMPROVES; TF PROVIDES 84% OF ESTIMATED NEEDS PLAN TO REDUCE TF RATE PO INTAKE IMPROVES MONITOR PO INTAKE CLOSELY ALONG WITH TF TOLERANCE AND LYTES
[2024-08-02 12:07] LABS: Glucose, Whole Blood 117 mg/dL (60-115)
[2024-08-02] MEDS: vancomycin HCL 500 MG in 0.9 % Sodium Chloride 100 ML 110 MG IV (12:11)
--- NOTE | 2024-08-02 13:55 | MHC.SL.SWA ---
Speech Pathologist Impression: Mild dysphagia Risk of Aspiration Due to: Lethargy Reduced Cognition Dysphasia Diet Status: Recommend continue Puree Solids and Thin Liquids. Medications Crushed in Puree. She requires 1:1 Feeding Assistance. Prior to PO administration, ensure adequate alertness, repositioning upright with towels/pillow placed to the right side of head and neck to maintain midline posture during feeding. She benefited today from frequent verbal cues about what was being presented to her. CUT OFF SAW OPERATOR PIPE BLANKS will continue to follow. Liquid Consistency and Strategies for Safe Swallow: Liquid Intake Recommendation: Thin Liquid Intake Strategies: Small Sips Solid Food Consistency: Dietary Recommendations: Pureed (NDD1) Additional Modifications to Solid Foods: Recommend continue Puree Solids and Thin Liquids. Medications Crushed in Puree. She requires 1:1 Feeding Assistance. Prior to PO administration, ensure adequate alertness, repositioning upright with towels/pillow placed to the right side of head and neck to maintain midline posture during feeding. She benefited today from frequent verbal cues about what was being presented to her. CUT OFF SAW OPERATOR PIPE BLANKS will continue to follow. Monitor percentage of meal completion and consult with RD to determine if she is ready to remove her NG Tube. Oral Medication Intake: Crushed with Puree Please contact the pharmacy regarding appropriate crushable or liquid drug formulations that are available whenever modified delivery is recommended. Compensatory Strategies and Precautions to be Taken for Safe Swallow: Sitting Upright (90 deg) Small Bites and Sips Alternate Liquids/Solids Rate of Ingestion Change Oral Check Supervision While Eating and Drinking for Safe Swallow: Total Assistance (1:1) Foods to Avoid: Mixed consistencies. Swallowing Recommended Treatments: Compens. Strategy Educat. Recommendation for Speech: Inpatient Speech Therapy Comment: Pt seen today, responsive to simple questions in non-verbal communication behaviors (i.e. nodding, facial grimacing, shaking head yes/no). Pt did not want more to eat or drink. Pt nodded when asked if she ate cranberry sauce. Pt observed to move tongue around in cheeks, across surface of lips, swallow reflexively. NG tube in place. CUT OFF SAW OPERATOR PIPE BLANKS to continue following. Frequency/Duration: PRN M-F Date Range for Service Req: Timeline to reassess: PRN Fire Marshal Clinican/Clinical Fellow: No Supervisory Statement: I have reviewed and agree with the student/clinical fellow's documentation: N/A Speech Language Pathologist: Ernestine Mcdaniels M.S., [facility]-CUT OFF SAW OPERATOR PIPE BLANKS
--- NOTE | 2024-08-02 14:16 | MHC.CM.PN ---
Per MD rounds patient will likely discharge to STR. Patient is not participating with P.T.. She has been discharged from P.T.. The recommendation is LTC vs 10/05 care. Patient lives with her sister/HCP /primary director of critical care. P.T. may be re-consulted when she can participate in the PT eval. DP Home with services vs a facility. BLS transport.
--- NOTE | 2024-08-02 15:22 | P.PNIM_ITS ---
Subjective Subjective Date of Service: 08/02/24 Interval History: E. coli bacteremia/pyelonephritis Review of Systems seems more awake encouraged for po intake Physical Exam 2 Vital Signs: Vital Signs: Last Vital Signs Temp 99.2 F 08/02/24 12:00 Pulse 103 H 08/02/24 12:00 Resp 18 08/02/24 12:00 BP 122/73 08/02/24 12:00 Pulse Ox 94 08/02/24 12:00 O2 Del Method Nasal Cannula 08/02/24 12:00 O2 Flow Rate 2 08/02/24 12:00 BMI result Body Mass Index 17.6 Chronically ill-appearing Lungs clear to auscultation cvs rrr(Tachycardia), s1s2 heard. Abdomen soft and nondistended Alert but not talking coccyx dressing in place Objective Data Active Medications Acetaminophen (Acetaminophen Supp 650 Mg Supp.Rect) 650 mg [place] Q6H PRN PRN Reason: Fever >100.4 Last Admin: 07/31/24 08:36 Dose: 650 mg Documented By: TAVARES Ceftriaxone Sodium (Ceftriaxone Sodium 2 Gm Vial) 2 gm IVPUSH Q24H [facility] Last Admin: 08/02/24 07:48 Dose: 2 gm Documented By: MATEO Clotrimazole (Clotrimazole 1 % Cream 15 Gm Tube) 1 appl TOPICAL BID [facility]; Protocol Last Admin: 08/02/24 09:26 Dose: 1 appl Documented By: MATEO Enoxaparin Sodium (Enoxaparin Sodium 30 Mg/0.3 Ml Syringe) 30 mg SUBCUT Q24H [facility] Last Admin: 07/29/24 14:01 Dose: 30 mg Documented By: MATEO Dextrose (D10) 250 mls @ 750 mls/hr IV Q30M PRN PRN Reason: BG <70 Levetiracetam 250 mg/ Sodium (Chloride) 102.5 mls @ 410 mls/hr IV BID [facility] Last Infusion: 08/02/24 09:43 Dose: Infused Documented By: MATEO Vancomycin HCl 500 mg/ Sodium (Chloride) 110 mls @ 110 mls/hr IV Q12H [facility] Last Infusion: 08/02/24 13:13 Dose: Infused Documented By: MATEO Insulin Human Lispro (Insulin Lispro 100 Unit/Ml 3 Ml Vial) 0 unit SUBCUT Q6H [facility]; Protocol Last Admin: 08/02/24 12:14 Dose: Not Given Documented By: MATEO Non-Admin Reason: No Insulin Coverage Nystatin (Nystatin Powder 15 Gm Bottle) 1 appl TOPICAL TID [facility]; Protocol Last Admin: 08/02/24 09:26 Dose: 1 appl Documented By: MATEO Pantoprazole Sodium (Pantoprazole Sodium 40 Mg/10 Ml Vial) 40 mg IVPUSH DAILY@0630 [facility] Last Admin: 08/02/24 06:02 Dose: 40 mg Documented By: HANNA Sodium Chloride (0.9 % Sodium Chloride Flush 3 Ml Syringe) 3 ml IVFLUSH QSHIFT [facility] Last Admin: 08/02/24 07:34 Dose: Not Given Documented By: MATEO Non-Admin Reason: No Access Sodium Chloride (0.9 % Sodium Chloride Flush 10 Ml Syringe) 5 ml IVFLUSH TID [facility] Last Admin: 08/02/24 07:35 Dose: Not Given Documented By: MATEO Non-Admin Reason: IV Running Labs 08/01/24 12:47 08/02/24 05:59 Labs: Laboratory Results - last 24 hr 08/01/24 08/01/24 08/01/24 17:32 21:00 23:43 Hold Purple Top Estim Creat Clear Calc Estimated GFR POC Glucose 258 H 229 H Random Vancomycin 12.0 L 08/02/24 08/02/24 08/02/24 00:21 05:59 06:04 Hold Purple Top SEE NOTE Estim Creat Clear Calc 67.7 Estimated GFR > 60 POC Glucose 207 H 204 H Random Vancomycin 08/02/24 11:21 Hold Purple Top Estim Creat Clear Calc Estimated GFR POC Glucose 117 H Random Vancomycin Microbiology Microbiology Results: Microbiology 07/30/24 10:51 Blood Culture - Preliminary Blood - Central Line No growth after 48 hours. 07/30/24 Unknown Urine Culture - Final Urine Catheterized - Cannon Catheter Rachel albicans Assessment and Plan (1) Septic shock: Status: Acute Plan 59yo F with Hermansky-Pudlak syndrome, DM2, developmental delay, HTN admitted to ICU with septic shock from pyelonephritis requiring pressor support, E coli bacteremia [sensitive to ceftriaxone]. Large unstageable cocycgeal ulcer and alk phos 1200+. Hospitazliation complicated by encephalopathy, seizure-like activity, pancytopenia, and CHICHI off pressors >48hr and stepped down to telemetry 07/27/24 septic shock due to E. coli bacteremia/pyelonephritis - ceftriaxone 07/21-, repeat BCx 07/25 negative, will need 2 wk therapy for bacteremia but anyways will be on ceftriaxone for 6 wk for osteomyelitis febrile 07/29 evening -- repeat cx sent, negative to date acute/chronic coccygeal osteomyelitis - ID consulted, recommends 6 wk of ceftriaxone + vancomycin 07/22-, Wound Care consulted: Sacrum - Off Load Pressure - Cleanse with PH balance spray or wipes, pat dry. ?Apply thin layer of Triad to wound bed - only pat and dab no scrub and rub when soiling occurs. Reapply thin layer PRN after each episode of incontinence. wound care:sacral wound(POA). Turn and Reposition every 2 hours and as needed for patient comfort.? Use pillows or wedges to support off loading positions. Off Load all bony prominences with use of pillows and heel boots if needed.? Apply Preventative foams where needed. ? Monitor for incontinence and moisture control, use barrier creams when needed for prevention and treatment. Provide adequate and supplemental nutrition.? Continue low air loss mattress. When applicable maintain blood glucose levels per Providers order. Sacrum - Off Load Pressure - Cleanse and irrigate with NS, pat dry. ?Apply antifungal powder to periwound followed by thin layer of Triad, lightly pack wound bed with Durafiber AG, cover with dry gauze, ABD pad and secure in place. Change every other day and PRN for soiling. Right Nose - Should patient begin to pick at scab on nose - Cleanse with NS cover with hydrocolloid change every 3-4 days. Otherwise may leave DIRECTOR SEARCH MARKETING STRATEGIES at this time acute encephalopathy due to sepsis electrolytes ,ammonia seems fine sats seems fine,tapering oxygen as per chart review- no LP done due to thrombocytopenia and pt has been on broad-spectrum antibiotics. Today, mental status seems to be somewhat improvin seizure-like activity - on levetiracetam - EEG pending added neurology eval for acute encephalopathy as above ,also ?seizure. severe malnutrition- on tube feeds per Nutrition recommendation, removed NGT x2, OGT -replaced in 07/30/24 . monitor lytes daily; risk of refeeding syndrome hypoPO4- repleted. pancytopenia due to septic shock - transfused 1u pRBCs 07/28 with appropriate response; transfused second unit 07/30 with improvement will give priosec for gi prophylaxis -- if continues to drop, may need gi eval CHICHI due to ATN from septic shock HyperNa - Cr improved; note that it is falsely low due to poor muscle mass SNa 148 -- will start d5w DM2 - joe-dose lispro HTN - held lisinopril VTE ppx - SCDs; hold enoxaparin due to severe anemia dispo - PT/OT/MORTGAGE BRANCH MANAGER evals In my clinical judgment, the patient requires continued inpatient hospitalization for the following reasons: IV ABX, tube feeds, neurology eval. Total time managing care of this patient today: 55 minutes. Quality Stroke Does the patient have a stroke diagnosis?: No VTE Prior VTE?: No VTE Risk Level:: Medical - moderate - high VTE Device Contraindication: Treatment Not Indicated VTE Drug Contraindication: N/A - Med Ordered
[2024-08-02] MEDS: 0.9 % Sodium Chloride Flush 10 ML SYRINGE 5 ML IVFLUSH ×2 (16:07→22:20)
--- NOTE | 2024-08-02 16:40 | P.CNNE_ITS ---
History of Present Illness Data of Consult Service Date: 08/02/24 Primary Care Provider: Unknown Physician HPI Reason for consult: encephalopathy 59-year-old lady with underlying rare Autosomal recessive disorder(Hermansky Pudlak syndrome), diabetes mellitus, developmental delay, hypertension admitted on 07/21/2024 to ICU with complains of diarrhea and confusion. On ER evaluation patient with elevated serum ketones, but no acidosis, started on insulin drip and admitted to the intensive care unit. She elaine sremained encephalopathic EEG shows diffuse slowing , but no seizure activity. [facility] Family History Family history: reviewed and not pertinent Social History Social History Household Members: Family Housing: House Patient Tobacco Use Status: Tobacco use Unknown Smoked in Last 30 Days: No Use of substances other than those prescribed or required for medical reasons: Unable to respond Last Used Substance: Unknown Currently Displaying Signs/Symptoms of Drug Intoxication Withdrawal: No Advance Directives: Yes Advance Directives Information Provided: No Advance Directives on File: No Advance Directives Date on File: 07/21/24 Do you have a plan to hurt others: No Plan Recently lost weight without trying: Yes How much weight loss: Unsure Eating poorly because of decreased appetite: Yes Nutrition screen score: 5 Nutrition Risks: Emaciation/Cachexia and Poor intake 0-25% >4 days Patient : No : No Poor oral hygiene: No Meds Allergies Allergy/AdvReac Type Severity Reaction Status Date / Time Penicillins [PENICILLINS] Allergy Severe BLEEDING, Verified 07/21/24 10:29 VOMITING aspirin [ASA] Allergy Unknown SWELLING, Verified 07/21/24 10:29 N/V Active Medications: Current Medications Acetaminophen (Acetaminophen Supp 650 Mg Supp.Rect) 650 mg MD Q6H PRN PRN Reason: Fever >100.4 Last Admin: 07/31/24 08:36 Dose: 650 mg Ceftriaxone Sodium (Ceftriaxone Sodium 2 Gm Vial) 2 gm IVPUSH Q24H MARTHA Last Admin: 08/02/24 07:48 Dose: 2 gm Clotrimazole (Clotrimazole 1 % Cream 15 Gm Tube) 1 appl TOPICAL BID MARTHA; Protocol Last Admin: 08/02/24 09:26 Dose: 1 appl Enoxaparin Sodium (Enoxaparin Sodium 30 Mg/0.3 Ml Syringe) 30 mg SUBCUT Q24H COUNTS INCLUDE 234 BEDS AT THE [facility] Last Admin: 07/29/24 14:01 Dose: 30 mg Dextrose (D10) 250 mls @ 750 mls/hr IV Q30M PRN PRN Reason: BG <70 Levetiracetam 250 mg/ Sodium (Chloride) 102.5 mls @ 410 mls/hr IV BID COUNTS INCLUDE 234 BEDS AT THE [facility] Last Infusion: 08/02/24 09:43 Dose: Infused Vancomycin HCl 500 mg/ Sodium (Chloride) 110 mls @ 110 mls/hr IV Q12H COUNTS INCLUDE 234 BEDS AT THE [facility] Last Infusion: 08/02/24 13:13 Dose: Infused Insulin Human Lispro (Insulin Lispro 100 Unit/Ml 3 Ml Vial) 0 unit SUBCUT Q6H COUNTS INCLUDE 234 BEDS AT THE [facility]; Protocol Last Admin: 08/02/24 12:14 Dose: Not Given Nystatin (Nystatin Powder 15 Gm Bottle) 1 appl TOPICAL TID COUNTS INCLUDE 234 BEDS AT THE [facility]; Protocol Last Admin: 08/02/24 16:07 Dose: 1 appl Pantoprazole Sodium (Pantoprazole Sodium 40 Mg/10 Ml Vial) 40 mg IVPUSH DAILY@0630 COUNTS INCLUDE 234 BEDS AT THE [facility] Last Admin: 08/02/24 06:02 Dose: 40 mg Sodium Chloride (0.9 % Sodium Chloride Flush 3 Ml Syringe) 3 ml IVFLUSH QSHIFT COUNTS INCLUDE 234 BEDS AT THE [facility] Last Admin: 08/02/24 16:06 Dose: Not Given Sodium Chloride (0.9 % Sodium Chloride Flush 10 Ml Syringe) 5 ml IVFLUSH TID COUNTS INCLUDE 234 BEDS AT THE [facility] Last Admin: 08/02/24 16:07 Dose: 5 ml Home Medications ?Medication ?Instructions ?Recorded ?Confirmed ?Last Taken ?Type allopurinol 100 mg tablet 100 mg PO DAILY 07/21/24 07/21/24 Unknown History insulin glargine 100 unit/mL (3 24 unit subcut BEDTIME 07/21/24 07/21/24 Unknown History mL) subcutaneous pen (Lantus Solostar U-100 Insulin) insulin lispro 100 unit/mL 1 sliding scale dose subcut 07/21/24 07/21/24 Unknown History subcutaneous pen (Humalog KwikPen USEASDIRECTD (U-100) Insulin) lisinopril 10 mg tablet 10 mg PO DAILY 07/21/24 07/21/24 Unknown History Physical Exam 2 Vital Signs: Vital Signs: Last Vital Signs Temp 99.9 F 08/02/24 16:00 Pulse 111 H 08/02/24 16:00 Resp 18 08/02/24 16:00 BP 124/74 08/02/24 16:00 Pulse Ox 97 08/02/24 16:00 O2 Del Method Nasal Cannula 08/02/24 16:00 O2 Flow Rate 2 08/02/24 16:00 BMI result Body Mass Index 17.6 Neuro: Other: arousable and can follow some simple commands. Non focal exam. Results Labs 08/01/24 12:47 08/02/24 05:59 Labs: BMP 08/02/24 05:59 Creatinine 0.62 Microbiology Microbiology Results: Microbiology 07/30/24 10:51 Blood - Central Line Blood Culture - Preliminary No growth after 48 hours. 07/30/24 Unknown Urine Catheterized - Cannon Catheter Urine Culture - Final Rachel albicans 07/25/24 08:59 Blood - Venous Blood Culture - Final No growth after 5 days. 07/25/24 08:59 Blood - Venous Blood Culture - Final No growth after 5 days. 07/21/24 17:54 Blood - Venous Blood Culture - Final No growth after 5 days. 07/21/24 17:54 Blood - Venous Blood Culture - Final Escherichia coli 07/22/24 Unknown Urine Catheterized - Straight Catheter Urine Culture - Final No growth. Assessment and Plan (1) Metabolic encephalopathy: Status: Acute Infectious. metabolic encephalopathy. No seizure activity on EEG. Recom. Treat underlying infectious and metabolic abnormalities. Procedures Date of Service Date of Service: 08/02/24
[2024-08-02 18:16] LABS: Glucose, Whole Blood 281 mg/dL (60-115)
[2024-08-02] MEDS: 0.9 % Sodium Chloride Flush 3 ML SYRINGE IVFLUSH (20:30)
[2024-08-02 21:25] LABS: Vancomycin Random 14.4 mcg/mL (15-20)
[2024-08-02] MEDS: Fluconazole in NaCl,Iso-Osm 200 MG/100 ML PIGGYBACK 100 MG IV (23:32)
[2024-08-03 04:00] VITALS: BP 121/76; PULSE 106; RESP 18; TEMP 36; O2SAT 93
[2024-08-03 04:31] VITALS: BMI 14.6
[2024-08-03] MEDS: Pantoprazole Sodium 40 MG/10 ML VIAL IVPUSH (05:48)
[2024-08-03 06:45] LABS: Creatinine Clr Calc Pharmacy 58.9; Estimated Glomerular Filt Rate > 60
[2024-08-03 07:52] VITALS: BP 111/64; PULSE 108; RESP 20; TEMP 36.9; O2SAT 93
[2024-08-03] MEDS: 0.9 % Sodium Chloride Flush 3 ML SYRINGE IVFLUSH ×3 (11:09→22:21)
[2024-08-03] MEDS: cefTRIAXone sodium 2 GM VIAL IVPUSH (11:10)
[2024-08-03] MEDS: Nystatin Powder 15 GM BOTTLE 1 APPL TOPICAL ×3 (11:11→22:20)
[2024-08-03] MEDS: levETIRAcetam 250 MG in 0.9 % Sodium Chloride 100 ML 410 MG IV (11:11)
[2024-08-03] MEDS: Clotrimazole 1 % Cream 15 GM TUBE 1 APPL TOPICAL ×2 (11:11→22:21)
[2024-08-03 11:15] LABS: Glucose, Whole Blood 386 mg/dL (60-115)
[2024-08-03 11:16] VITALS: BP 104/67; PULSE 109; RESP 20; TEMP 36.8; O2SAT 96
[2024-08-03] MEDS: Insulin Lispro 100 UNIT/ML 3 ML VIAL SUBCUT ×2 (11:21→12:50)
[2024-08-03] MEDS: 0.9 % Sodium Chloride Flush 10 ML SYRINGE 5 ML IVFLUSH ×3 (11:22→22:20)
[2024-08-03 12:22] LABS: Glucose, Whole Blood 382 mg/dL (60-115)
--- NOTE | 2024-08-03 12:34 | MHC.SLORD ---
Speech Language Pathology Order Status: Attempted to see patient X3 today, patient sleeping/lethargic, not appropriate for PO trials today. Deputy Court will continue to follow.
--- NOTE | 2024-08-03 14:04 | P.PNIM_ITS ---
Subjective Subjective Date of Service: 08/03/24 Interval History: E. coli bacteremia/pyelonephritis Review of Systems seems siimilar eating better fs higher side Review of Systems: Yes all other systems are reviewed and are negative Physical Exam 2 Vital Signs: Vital Signs: Last Vital Signs Temp 98.3 F 08/03/24 11:16 Pulse 109 H 08/03/24 11:16 Resp 20 08/03/24 11:16 BP 104/67 08/03/24 11:16 Pulse Ox 96 08/03/24 11:16 O2 Del Method Nasal Cannula 08/03/24 11:16 O2 Flow Rate 2 08/03/24 11:16 BMI result Body Mass Index 14.6 Chronically ill-appearing Lungs clear to auscultation cvs rrr(Tachycardia), s1s2 heard. Abdomen soft and nondistended Alert but not talking coccyx dressing in place Objective Data Active Medications Acetaminophen (Acetaminophen Supp 650 Mg Supp.Rect) 650 mg OR Q6H PRN PRN Reason: Fever >100.4 Last Admin: 07/31/24 08:36 Dose: 650 mg Documented By: TAVARES Ceftriaxone Sodium (Ceftriaxone Sodium 2 Gm Vial) 2 gm IVPUSH Q24H MARTHA Last Admin: 08/03/24 11:10 Dose: 2 gm Documented By: JENARO Clotrimazole (Clotrimazole 1 % Cream 15 Gm Tube) 1 appl TOPICAL BID [facility]; Protocol Last Admin: 08/03/24 11:11 Dose: 1 appl Documented By: JENARO Enoxaparin Sodium (Enoxaparin Sodium 30 Mg/0.3 Ml Syringe) 30 mg SUBCUT Q24H MARTHA Last Admin: 07/29/24 14:01 Dose: 30 mg Documented By: MATEO Dextrose (D10) 250 mls @ 750 mls/hr IV Q30M PRN PRN Reason: BG <70 Levetiracetam 250 mg/ Sodium (Chloride) 102.5 mls @ 410 mls/hr IV BID [facility] Last Infusion: 08/03/24 12:11 Dose: Infused Documented By: JENARO Insulin Human Lispro (Insulin Lispro 100 Unit/Ml 3 Ml Vial) 0 unit SUBCUT Q6H MARTHA; Protocol Last Admin: 08/03/24 12:50 Dose: 14 unit Documented By: JENARO Nystatin (Nystatin Powder 15 Gm Bottle) 1 appl TOPICAL TID [facility]; Protocol Last Admin: 08/03/24 11:11 Dose: 1 appl Documented By: JENARO Pantoprazole Sodium (Pantoprazole Sodium 40 Mg/10 Ml Vial) 40 mg IVPUSH DAILY@0630 [facility] Last Admin: 08/03/24 05:48 Dose: 40 mg Documented By: PRAVEEN Sodium Chloride (0.9 % Sodium Chloride Flush 3 Ml Syringe) 3 ml IVFLUSH QSHIFT [facility] Last Admin: 08/03/24 11:09 Dose: 3 ml Documented By: JENARO Sodium Chloride (0.9 % Sodium Chloride Flush 10 Ml Syringe) 5 ml IVFLUSH TID [facility] Last Admin: 08/03/24 11:22 Dose: 5 ml Documented By: JENARO Labs 08/01/24 12:47 08/03/24 05:53 Labs: Laboratory Results - last 24 hr 08/02/24 08/02/24 08/03/24 18:08 21:00 05:53 Estim Creat Clear Calc 58.9 Estimated GFR > 60 POC Glucose 281 H Random Vancomycin 14.4 L 08/03/24 08/03/24 11:10 12:18 Estim Creat Clear Calc Estimated GFR POC Glucose 386 H* 382 H* Random Vancomycin Assessment and Plan (1) Septic shock: Status: Acute Plan 59yo F with Hermansky-Pudlak syndrome, DM2, developmental delay, HTN admitted to ICU with septic shock from pyelonephritis requiring pressor support, E coli bacteremia [sensitive to ceftriaxone]. Large unstageable cocycgeal ulcer and alk phos 1200+. Hospitazliation complicated by encephalopathy, seizure-like activity, pancytopenia, and CHICHI off pressors >48hr and stepped down to telemetry 07/27/24 septic shock due to E. coli bacteremia/pyelonephritis ceftriaxone 07/21-, repeat BCx 07/25 negative, will need 2 wk therapy for bacteremia but anyways will be on ceftriaxone for 6 wk for osteomyelitis febrile 07/29 evening -- repeat cx sent, negative to date. urine culture 07/30 -?isabel albicans > 100,000 cfu/mL(?contminant),given fluconazole x1 dose acute/chronic coccygeal osteomyelitis nasal mrsa screen neg currently ceftriaxone + vancomycin 07/22: vanco trough 14.4 (08/02/24) will hold off vanco , Id follow up Wound Care consulted: Sacrum - Off Load Pressure - Cleanse with PH balance spray or wipes, pat dry. ?Apply thin layer of Triad to wound bed - only pat and dab no scrub and rub when soiling occurs. Reapply thin layer PRN after each episode of incontinence. wound care:sacral wound(POA). Turn and Reposition every 2 hours and as needed for patient comfort.? Use pillows or wedges to support off loading positions. Off Load all bony prominences with use of pillows and heel boots if needed.? Apply Preventative foams where needed. ? Monitor for incontinence and moisture control, use barrier creams when needed for prevention and treatment. Provide adequate and supplemental nutrition.? Continue low air loss mattress. When applicable maintain blood glucose levels per Providers order. Sacrum - Off Load Pressure - Cleanse and irrigate with NS, pat dry. ?Apply antifungal powder to periwound followed by thin layer of Triad, lightly pack wound bed with Durafiber AG, cover with dry gauze, ABD pad and secure in place. Change every other day and PRN for soiling. Right Nose - Should patient begin to pick at scab on nose - Cleanse with NS cover with hydrocolloid change every 3-4 days. Otherwise may leave RADAMES at this time acute encephalopathy due to sepsis electrolytes ,ammonia seems fine sats seems fine,tapering oxygen mental status somewhat improving-please see below neuro impression. seizure-like activity no new activity noted.was on keppra from icu. EEG -abnormal EEG due to moderately severe diffuse background slowing consistent with diffuse encephalopathic process. No clearly epileptiform discharges are seen. neuorlogy eval -Infectious. metabolic encephalopathy. Recom. Treat underlying infectious and metabolic abnormalities. will check with neuro further need for keppra? severe malnutrition- on tube feeds per Nutrition recommendation, removed NGT x2, OGT -replaced in 07/30/24 . patient is eating somewhat, plan is to slowly taper g tube feeding moniter bmp closely hypoPO4- repleted. pancytopenia due to septic shock - transfused 1u pRBCs 07/28 with appropriate response; transfused second unit 07/30 with improvement h/h stable moniter cbc CHICHI due to ATN from septic shock HyperNa - Cr improved; note that it is falsely low due to poor muscle mass improved with ivf. DM2 with hyperglycemia adjusted joe-dose lispro HTN - held lisinopril VTE ppx - SCDs, resume enoxaparin since h/h improving dispo - PT/OT/CROWD CONTROLLER evals In my clinical judgment, the patient requires continued inpatient hospitalization for the following reasons: IV ABX, tube feeds, Id follow for antibiotics duration/use. Total time managing care of this patient today: 55 minutes. Quality Stroke Does the patient have a stroke diagnosis?: No VTE Prior VTE?: No VTE Risk Level:: Medical - moderate - high VTE Device Contraindication: Treatment Not Indicated VTE Drug Contraindication: N/A - Med Ordered
[2024-08-03 15:00] LABS: Anion Gap 9 (12-20)
[2024-08-03 15:04] LABS: Blood Urea Nitrogen 17 mg/dL (9-16); Calcium 7.7 mg/dL (8.4-10.2); Carbon Dioxide 29 mmol/L (22-29); Chloride 105 mmol/L (96-108); Glucose Random 209 mg/dL (60-115); Magnesium 2.3 mg/dL (1.6-2.6); Phosphorus 2.5 mg/dL (2.7-4.5); Sodium 139 mmol/L (135-145)
[2024-08-03 15:41] VITALS: BP 121/68; PULSE 109; RESP 18; TEMP 36.8; O2SAT 94
[2024-08-03 20:00] VITALS: BP 146/76; PULSE 77; RESP 18; TEMP 37.1; O2SAT 98
[2024-08-03] MEDS: Insulin Glargine,Hum.rec.anlog 100 UNIT/ML 10 ML VIAL 10 UNIT SUBCUT (22:19)
[2024-08-03 23:55] LABS: Glucose, Whole Blood 280 mg/dL (60-115)
[2024-08-03 23:57] VITALS: BP 136/62; PULSE 112; RESP 15; TEMP 37.3; O2SAT 96
[2024-08-04] MEDS: Insulin Lispro 100 UNIT/ML 3 ML VIAL SUBCUT ×2 (00:25→23:27)
[2024-08-04 03:20] VITALS: BP 132/68; PULSE 106; RESP 20; TEMP 36.4; O2SAT 97
[2024-08-04 05:43] LABS: Glucose, Whole Blood 68 mg/dL (60-115)
[2024-08-04] MEDS: Dextrose 10 % 250 ML 750 ML IV (05:44)
[2024-08-04 06:00] VITALS: BMI 14.1
[2024-08-04] MEDS: Pantoprazole Sodium 40 MG/10 ML VIAL IVPUSH (06:16)
[2024-08-04 06:34] LABS: Glucose, Whole Blood 148 mg/dL (60-115)
[2024-08-04 07:03] LABS: Hematocrit 28.4 % (37.0-47.0); Hemoglobin 9.3 g/dl (12.0-16.0); Mean Corpuscular HGB Conc 32.7 g/dl (31.0-35.0); Mean Corpuscular Hemoglobin 29.7 pg (27.0-33.0); Mean Corpuscular Volume 90.7 fL (80.0-98.0); Mean Platelet Volume 11.6 fL (9.4-12.3); Platelet Count 170 X10*3/uL (160-400); Red Blood Count 3.13 X10*6/uL (4.20-5.50); Red Cell Distribution Width 17.4 % (11.0-16.0); White Blood Count 3.2 X10*3/uL (4.8-10.8)
[2024-08-04 07:26] VITALS: BP 122/72; PULSE 109; RESP 16; TEMP 37.3; O2SAT 96
[2024-08-04 07:29] LABS: Estimated Average Glucose 197 mg/dL; Hemoglobin A1C 185.5065 umol/L; Hemoglobin A1c % 8.5 % (<6.0); Total Hemoglobin (HGBA1C) 2669.9291 umol/L
[2024-08-04 07:30] LABS: Anion Gap 10 (12-20); Blood Urea Nitrogen 19 mg/dL (9-16); Calcium 7.6 mg/dL (8.4-10.2); Carbon Dioxide 28 mmol/L (22-29); Chloride 102 mmol/L (96-108); Creatinine Clr Calc Pharmacy 61.4; Estimated Glomerular Filt Rate > 60; Glucose Random 167 mg/dL (60-115); Potassium 4.2 mmol/L (3.3-5.1); Sodium 136 mmol/L (135-145)
--- NOTE | 2024-08-04 10:14 | MHC.CM.PN ---
Per ROUNDS discussion, Patient is not yet medically cleared for dc (IV ABT, IV Protonix); PT is recommending home with 24/7 care vs LTC and CM will continue to follow.
--- NOTE | 2024-08-04 10:16 | MHC.CLN ---
F/U REVIEWED LABS PT CONTINUES TO RECEIVE TF GLUCERNA AT MAX GOAL OF 45ML/HR WITH 30ML PROSOURCE AND 120ML FREE WATER FLUSHES Q 6 HRS PROVIDES 1140KCALS (25KCALS/KG), 60G PROTEIN (1.3G/KG), 1401ML TOTAL FREE WATER FROM FORMULA AND FLUSHES (31ML/KG) UNLOAD ASSOCIATE RECOMMENDING PUREED DIET WITH 1:1 FEED PO INTAKE FOLLOWS 50,75,75, 50% (AVERAGING 50% INTAKE) DISCUSSED WITH PT'S NURSE RECOMMEND TF DECREASE TO GLUCERNA AT 25ML/HR TO PROVIDE 600KCALS, 25G PROTEIN, 512ML FREE WATER FROM FORMULA TF PROVIDES 57% OF ESTIMATED NEEDS PLAN TO REDUCE TF RATE PO INTAKE IMPROVES; CAN D/C TF IF PO INTAKE INCREASES OVER WEEKEND MONITOR PO INTAKE CLOSELY ALONG WITH TF TOLERANCE AND LYTES RD CAN BE REACHED VIA TIGER CONNECT DURING OFF HOURS IF NEEDED
[2024-08-04] MEDS: cefTRIAXone sodium 2 GM VIAL IVPUSH (11:13)
[2024-08-04] MEDS: Clotrimazole 1 % Cream 15 GM TUBE 1 APPL TOPICAL ×2 (11:14→21:41)
[2024-08-04] MEDS: 0.9 % Sodium Chloride Flush 3 ML SYRINGE IVFLUSH ×3 (11:14→21:41)
[2024-08-04] MEDS: Nystatin Powder 15 GM BOTTLE 1 APPL TOPICAL ×3 (11:14→21:41)
[2024-08-04] MEDS: 0.9 % Sodium Chloride Flush 10 ML SYRINGE 5 ML IVFLUSH ×3 (11:14→20:15)
[2024-08-04 11:55] LABS: Glucose, Whole Blood 184 mg/dL (60-115)
[2024-08-04 12:00] VITALS: BP 112/80; PULSE 114; RESP 18; TEMP 37.5; O2SAT 97
--- NOTE | 2024-08-04 12:19 | MHC.SL.SWA ---
Speech Pathologist Impression: Risk of Aspiration, Oropharyngeal Dysphagia Risk of Aspiration Due to: Lethargy Reduced Cognition Dysphasia Diet Status: Recommend continue Puree Solids and Thin Liquids. Medications Crushed in Puree. She requires 1:1 Feeding Assistance. Prior to PO administration, ensure adequate alertness, repositioning upright with towels/pillow placed to the right side of head and neck to maintain midline posture during feeding. She benefited today from frequent verbal cues about what was being presented to her. MARKETING PRODUCTION COORDINATOR will continue to follow. Liquid Consistency and Strategies for Safe Swallow: Liquid Intake Recommendation: Thin Liquid Intake Strategies: Small Sips Solid Food Consistency: Dietary Recommendations: Pureed (NDD1) Additional Modifications to Solid Foods: Recommend continue Puree Solids and Thin Liquids. Medications Crushed in Puree. She requires 1:1 Feeding Assistance. Prior to PO administration, ensure adequate alertness, repositioning upright with towels/pillow placed to the right side of head and neck to maintain midline posture during feeding. She benefited today from frequent verbal cues about what was being presented to her. MARKETING PRODUCTION COORDINATOR will continue to follow. Monitor percentage of meal completion and consult with RD to determine if she is ready to remove her NG Tube. Oral Medication Intake: Crushed with Puree Please contact the pharmacy regarding appropriate crushable or liquid drug formulations that are available whenever modified delivery is recommended. Compensatory Strategies and Precautions to be Taken for Safe Swallow: Sitting Upright (90 deg) Small Bites and Sips Alternate Liquids/Solids Rate of Ingestion Change Oral Check Supervision While Eating and Drinking for Safe Swallow: Total Assistance (1:1) Foods to Avoid: Mixed consistencies. Swallowing Recommended Treatments: Compens. Strategy Educat. Recommendation for Speech: Inpatient Speech Therapy Comment: Frequency/Duration: PRN M-F Date Range for Service Req: Timeline to reassess: PRN Elementary Esl Teacher Clinican/Clinical Fellow: No Supervisory Statement: I have reviewed and agree with the student/clinical fellow's documentation: N/A Speech Language Pathologist: Nikki Diaz M.A., CCC-MARKETING PRODUCTION COORDINATOR
--- NOTE | 2024-08-04 13:31 | HO.WOUND ---
Wound Consult: Follow up 59yr old?female admitted to [facility] [place] on 07/21/24 - See progress notes and H&P for detailed history.? Wound consult follow up for sacral wound POA at the request of the family at bedside. At bedside spoke to patients family and all questions were answered. She reports the patient has had a open wound in the past to the coccyx. Patient requested to use the bedpan - bed butler proved patient was able to push out a small amount of soft brown stool. When cleansing her anus there does appear to be stool in rectum patient is not able to push it out at this time. Stool was very soft and did not feel impacted. Direct care nurse aware. The perianal area is noted for significant MASD and fungal dermatitis. Incontinence care provided and antifungal cream and triad applied. The sacral dressing had not yet been changed - the dressing was removed and cleansed and repacked with durafiber. Direct care nurse at bedside and observed. Etiology: ??Stage 4 Pressure Injury - Admitted with Deep Tissue Injury in Evolution Wound Bed: marbled pink moist wound bed with moist fibrinous slough small pin point exposed rough bone Drainage / Odor: no odor noted - macias yellow serosang drainage Edges: ? unattached Darby wound: ?MASD - and Fungal dermatitis Pain: pain assessed Goals of Treatment: ? Lightly pack with Durafiber AG due to frequent stools not able to use Foam dressing at this time use ABD pad. TT to provider to consider ordering topical antifungal powder No new topical recommendations needed at this time. The patients forehead is noted for a small stable scan reportedly from removal of the oxygen sensing probe. MARSI (Medical Adhesive Related Skin Injury) - no topical interventions at this time as options are limited given use of oxygen in the general area and the scab is stable and no erythema noted. unchanged on todays assessment . The right nose noted for wound - chart review reveals suspected adhesive injury due to tube securement. Firm black scab noted - no topical interventions at this time as options are limited given use of oxygen in the general area and the scab is stable and no erythema noted. Should patient begin to pick at site direct care team may apply hydrocolloid dressing to allow for autolytic debridement and moist wound healing, change every 3-4 days. . Recommendations: 1. Turn and Reposition every 2 hours and as needed for patient comfort.? Use pillows or wedges to support off loading positions. 2. Off Load all bony prominences with use of pillows and heel boots if needed.? Apply Preventative foams where needed. ? 3. Monitor for incontinence and moisture control, use barrier creams when needed for prevention and treatment. 4. Provide adequate and supplemental nutrition.? 5. Continue low air loss mattress. 6. When applicable maintain blood glucose levels per Providers order. 7. Sacrum - Off Load Pressure - Cleanse and irrigate with NS, pat dry. ?Apply antifungal powder to periwound followed by thin layer of Triad, lightly pack wound bed with Durafiber AG, cover with dry gauze, ABD pad and secure in place. Change every other day and PRN for soiling. 8. Right Nose - Should patient begin to pick at scab on nose - Cleanse with NS cover with hydrocolloid change every 3-4 days. Otherwise may leave LINT CLEANER at this time. Re-consult wound care Nurse for wound deterioration or wound changes.
--- NOTE | 2024-08-04 14:25 | P.PNIM_ITS ---
Subjective Subjective Date of Service: 08/04/24 Interval History: E. coli bacteremia/pyelonephritis osteo Review of Systems seems more awake eating better fs flacutating Physical Exam 2 Vital Signs: Vital Signs: Last Vital Signs Temp 99.5 F 08/04/24 12:00 Pulse 114 H 08/04/24 12:00 Resp 18 08/04/24 12:00 BP 112/80 08/04/24 12:00 Pulse Ox 97 08/04/24 12:00 O2 Del Method Nasal Cannula 08/04/24 12:00 O2 Flow Rate 2 08/04/24 12:00 BMI result Body Mass Index 14.1 Chronically ill-appearing Lungs clear to auscultation cvs rrr(Tachycardia), s1s2 heard. Abdomen soft and nondistended Alert but not talking coccyx dressing in place Objective Data Active Medications Acetaminophen (Acetaminophen Supp 650 Mg Supp.Rect) 650 mg [place] Q6H PRN PRN Reason: Fever >100.4 Last Admin: 07/31/24 08:36 Dose: 650 mg Documented By: TAVARES Ceftriaxone Sodium (Ceftriaxone Sodium 2 Gm Vial) 2 gm IVPUSH Q24H [facility] Last Admin: 08/04/24 11:13 Dose: 2 gm Documented By: JENARO Clotrimazole (Clotrimazole 1 % Cream 15 Gm Tube) 1 appl TOPICAL BID [facility]; Protocol Last Admin: 08/04/24 11:14 Dose: 1 appl Documented By: JENARO Enoxaparin Sodium (Enoxaparin Sodium 30 Mg/0.3 Ml Syringe) 30 mg SUBCUT Q24H [facility] Last Admin: 07/29/24 14:01 Dose: 30 mg Documented By: MATEO Dextrose (D10) 250 mls @ 750 mls/hr IV Q30M PRN PRN Reason: BG <70 Last Infusion: 08/04/24 06:16 Dose: Infused Documented By: PRAVEEN Insulin Glargine (Insulin Glargine,Hum.Rec.Anlog 100 Unit/Ml 10 Ml Vial) 10 unit SUBCUT BEDTIME [facility] Last Admin: 08/03/24 22:19 Dose: 10 unit Documented By: PRAVEEN Insulin Human Lispro (Insulin Lispro 100 Unit/Ml 3 Ml Vial) 0 unit SUBCUT Q6H [facility]; Protocol Last Admin: 08/04/24 13:15 Dose: Not Given Documented By: JENARO Non-Admin Reason: Physician Approved Nystatin (Nystatin Powder 15 Gm Bottle) 1 appl TOPICAL TID [facility]; Protocol Last Admin: 08/04/24 11:14 Dose: 1 appl Documented By: JENARO Pantoprazole Sodium (Pantoprazole Sodium 40 Mg/10 Ml Vial) 40 mg IVPUSH DAILY@0630 [facility] Last Admin: 08/04/24 06:16 Dose: 40 mg Documented By: PRAVEEN Sodium Biphosphate/Sodium Phosphate (Sodium Phosphate,[place]-Dibasic 133 Ml Enema) 133 ml MO ONCE PRN PRN Reason: Constipation Sodium Chloride (0.9 % Sodium Chloride Flush 3 Ml Syringe) 3 ml IVFLUSH QSHIFT [facility] Last Admin: 08/04/24 11:14 Dose: 3 ml Documented By: JENARO Sodium Chloride (0.9 % Sodium Chloride Flush 10 Ml Syringe) 5 ml IVFLUSH TID [facility] Last Admin: 08/04/24 11:14 Dose: 5 ml Documented By: JENARO Labs 08/04/24 06:51 08/04/24 06:51 Labs: Laboratory Results - last 24 hr 08/03/24 08/03/24 08/04/24 05:53 23:42 05:39 MCV MCH MCHC RDW Plt Count MPV Absolute Nucleated RBC Nucleated RBC % (auto) Anion Gap 9 L Estim Creat Clear Calc 58.9 Estimated GFR > 60 POC Glucose 280 H 68 Random Glucose 209 H Estimat Average Glucose Hemoglobin A1c % Calcium 7.7 L Phosphorus 2.5 L Magnesium 2.3 08/04/24 08/04/24 08/04/24 06:30 06:51 11:50 MCV 90.7 MCH 29.7 MCHC 32.7 RDW 17.4 H Plt Count 170 MPV 11.6 Absolute Nucleated RBC 0.000 Nucleated RBC % (auto) 0.0 Anion Gap 10 L Estim Creat Clear Calc 61.4 Estimated GFR > 60 POC Glucose 148 H 184 H Random Glucose 167 H Estimat Average Glucose 197 Hemoglobin A1c % 8.5 H Calcium 7.6 L Phosphorus Magnesium Microbiology Microbiology Results: Microbiology 07/30/24 10:51 Blood Culture - Final Blood - Central Line No growth after 5 days. Assessment and Plan (1) Septic shock: Status: Acute Plan 59yo F with Hermansky-Pudlak syndrome, DM2, developmental delay, HTN admitted to ICU with septic shock from pyelonephritis requiring pressor support, E coli bacteremia [sensitive to ceftriaxone]. Large unstageable cocycgeal ulcer and alk phos 1200+. Hospitazliation complicated by encephalopathy, seizure-like activity, pancytopenia, and CHICHI off pressors >48hr and stepped down to telemetry 07/27/24 septic shock due to E. coli bacteremia/pyelonephritis ceftriaxone 07/21-, repeat BCx 07/25 negative, will need 2 wk therapy for bacteremia but anyways will be on ceftriaxone for 6 wk for osteomyelitis febrile 07/29 evening -- repeat cx sent, negative to date. urine culture 07/30 -?isabel albicans > 100,000 cfu/mL(?contminant),given fluconazole x1 dose acute/chronic coccygeal osteomyelitis nasal mrsa screen neg currently ceftriaxone + vancomycin 07/22: vanco trough 14.4 (08/02/24) will hold off vanco , Id follow up Wound Care consulted: Sacrum - Off Load Pressure - Cleanse with PH balance spray or wipes, pat dry. ?Apply thin layer of Triad to wound bed - only pat and dab no scrub and rub when soiling occurs. Reapply thin layer PRN after each episode of incontinence. wound care:sacral wound(POA). Turn and Reposition every 2 hours and as needed for patient comfort.? Use pillows or wedges to support off loading positions. Off Load all bony prominences with use of pillows and heel boots if needed.? Apply Preventative foams where needed. ? Monitor for incontinence and moisture control, use barrier creams when needed for prevention and treatment. Provide adequate and supplemental nutrition.? Continue low air loss mattress. When applicable maintain blood glucose levels per Providers order. Sacrum - Off Load Pressure - Cleanse and irrigate with NS, pat dry. ?Apply antifungal powder to periwound followed by thin layer of Triad, lightly pack wound bed with Durafiber AG, cover with dry gauze, ABD pad and secure in place. Change every other day and PRN for soiling. Right Nose - Should patient begin to pick at scab on nose - Cleanse with NS cover with hydrocolloid change every 3-4 days. Otherwise may leave RADAMES at this time acute encephalopathy due to sepsis electrolytes ,ammonia seems fine sats seems fine,tapering oxygen mental status somewhat improving-please see below neuro impression. seizure-like activity no new activity noted.was on keppra from icu. EEG -abnormal EEG due to moderately severe diffuse background slowing consistent with diffuse encephalopathic process. No clearly epileptiform discharges are seen. neuorlogy eval -Infectious. metabolic encephalopathy. Recom. Treat underlying infectious and metabolic abnormalities. will check with neuro further need for keppra? severe malnutrition- on tube feeds per Nutrition recommendation, removed NGT x2, OGT -replaced in 07/30/24 . patient is eating somewhat, plan is to slowly taper g tube feeding moniter bmp closely hypoPO4- repleted. pancytopenia due to septic shock - transfused 1u pRBCs 07/28 with appropriate response; transfused second unit 07/30 with improvement h/h stable moniter cbc CHICHI due to ATN from septic shock HyperNa - Cr improved; note that it is falsely low due to poor muscle mass improved with ivf. DM2 with hyperglycemia adjusted joe-dose lispro HTN - held lisinopril VTE ppx - SCDs, resume enoxaparin since h/h improving dispo - PT/OT/HEALTH ASSISTANT evals In my clinical judgment, the patient requires continued inpatient hospitalization for the following reasons: IV ABX, tube feeds, Id follow for antibiotics duration/use. Total time managing care of this patient today: 55 minutes. Quality Stroke Does the patient have a stroke diagnosis?: No VTE Prior VTE?: No VTE Risk Level:: Medical - moderate - high VTE Device Contraindication: Treatment Not Indicated VTE Drug Contraindication: N/A - Med Ordered
[2024-08-04 15:37] VITALS: BP 128/70; PULSE 99; RESP 18; TEMP 37.2; O2SAT 99
--- NOTE | 2024-08-04 15:40 | MHC.CM.PN ---
CM left a detailed message for Sister Mojgan @ [phone], requesting a copy of the HCP. CM will follow.
[2024-08-04 17:59] LABS: Glucose, Whole Blood 144 mg/dL (60-115)
[2024-08-04 20:00] VITALS: BP 105/66; PULSE 110; RESP 18; TEMP 37.1; O2SAT 96
[2024-08-04 23:27] LABS: Glucose, Whole Blood 256 mg/dL (60-115)
[2024-08-04 23:36] VITALS: BP 106/60; PULSE 112; RESP 18; TEMP 37.2; O2SAT 98
[2024-08-05 03:42] VITALS: BP 100/60; PULSE 115; RESP 18; TEMP 37.1; O2SAT 97
[2024-08-05] MEDS: Pantoprazole Sodium 40 MG/10 ML VIAL IVPUSH (06:06)
[2024-08-05 06:14] LABS: Glucose, Whole Blood 191 mg/dL (60-115)
[2024-08-05 06:44] LABS: Creatinine Clr Calc Pharmacy 58.1; Estimated Glomerular Filt Rate > 60
[2024-08-05 07:42] VITALS: BP 96/50; PULSE 110; RESP 18; TEMP 36.6; O2SAT 97
[2024-08-05 07:56] LABS: Hemoglobin 8.8 g/dl (12.0-16.0)
[2024-08-05] MEDS: Albumin Human 25 % 100 ML IV ×3 (08:16→21:13)
[2024-08-05] MEDS: 0.9 % Sodium Chloride Flush 10 ML SYRINGE 5 ML IVFLUSH ×3 (08:18→21:14)
[2024-08-05] MEDS: Clotrimazole 1 % Cream 15 GM TUBE 1 APPL TOPICAL ×2 (08:19→21:15)
[2024-08-05] MEDS: Nystatin Powder 15 GM BOTTLE 1 APPL TOPICAL ×3 (08:19→21:15)
[2024-08-05] MEDS: cefTRIAXone sodium 2 GM VIAL IVPUSH (09:00)
[2024-08-05 11:51] VITALS: BP 99/58; PULSE 110; RESP 18; TEMP 36.6; O2SAT 99
--- NOTE | 2024-08-05 12:13 | HO.PM.IMPN ---
Subjective Subjective Date of Service: 08/05/24 Interval History: E. coli bacteremia/pyelonephritis osteo Review of Systems seems more awake, po inatke flactuating fs improving Physical Exam Vital Signs: Vital Signs: Last Vital Signs Temp 97.9 F 08/05/24 11:51 Pulse 110 H 08/05/24 11:51 Resp 18 08/05/24 11:51 BP 99/58 L 08/05/24 11:51 Pulse Ox 99 08/05/24 11:51 O2 Del Method Nasal Cannula, Hu midified O2 08/05/24 11:51 O2 Flow Rate 2 08/05/24 11:51 BMI result Body Mass Index 14.1 Chronically ill-appearing Lungs clear to auscultation cvs rrr(Tachycardia), s1s2 heard. Abdomen soft and nondistended Alert but not talking coccyx dressing in place Objective Data Active Medications Acetaminophen (Acetaminophen Supp 650 Mg Supp.Rect) 650 mg MS Q6H PRN PRN Reason: Fever >100.4 Last Admin: 07/31/24 08:36 Dose: 650 mg Documented By: TAVARES Ceftriaxone Sodium (Ceftriaxone Sodium 2 Gm Vial) 2 gm IVPUSH Q24H [facility] Last Admin: 08/05/24 09:00 Dose: 2 gm Documented By: HELEN Clotrimazole (Clotrimazole 1 % Cream 15 Gm Tube) 1 appl TOPICAL BID [facility]; Protocol Last Admin: 08/05/24 08:19 Dose: 1 appl Documented By: HELEN Enoxaparin Sodium (Enoxaparin Sodium 30 Mg/0.3 Ml Syringe) 30 mg SUBCUT Q24H [facility] Last Admin: 07/29/24 14:01 Dose: 30 mg Documented By: MATEO Dextrose (D10) 250 mls @ 750 mls/hr IV Q30M PRN PRN Reason: BG <70 Last Infusion: 08/04/24 06:16 Dose: Infused Documented By: PRAVEEN Albumin Human (Kedbumin 25 %) 100 mls @ 100 mls/hr IV Q6H [facility] Stop: 08/06/24 02:44 Last Infusion: 08/05/24 09:16 Dose: Infused Documented By: HELEN Insulin Human Lispro (Insulin Lispro 100 Unit/Ml 3 Ml Vial) 0 unit SUBCUT Q6H [facility]; Protocol Last Admin: 08/05/24 06:06 Dose: Not Given Documented By: JENY Non-Admin Reason: No Insulin Coverage Nystatin (Nystatin Powder 15 Gm Bottle) 1 appl TOPICAL TID [facility]; Protocol Last Admin: 08/05/24 08:19 Dose: 1 appl Documented By: HELEN Pantoprazole Sodium (Pantoprazole Sodium 40 Mg/10 Ml Vial) 40 mg IVPUSH DAILY@0630 [facility] Last Admin: 08/05/24 06:06 Dose: 40 mg Documented By: JENY Sodium Biphosphate/Sodium Phosphate (Sodium Phosphate,[place]-Dibasic 133 Ml Enema) 133 ml MS ONCE PRN PRN Reason: Constipation Sodium Chloride (0.9 % Sodium Chloride Flush 3 Ml Syringe) 3 ml IVFLUSH QSHIFT [facility] Last Admin: 08/04/24 21:41 Dose: 3 ml Documented By: JENY Sodium Chloride (0.9 % Sodium Chloride Flush 10 Ml Syringe) 5 ml IVFLUSH TID [facility] Last Admin: 08/05/24 08:18 Dose: 5 ml Documented By: HELEN Labs 08/05/24 07:48 08/05/24 05:57 Labs: Laboratory Results - last 24 hr 08/04/24 08/04/24 08/05/24 17:55 23:23 05:57 Hold Purple Top SEE NOTE Estim Creat Clear Calc 58.1 Estimated GFR > 60 POC Glucose 144 H 256 H 08/05/24 06:04 Hold Purple Top Estim Creat Clear Calc Estimated GFR POC Glucose 191 H Microbiology Microbiology Results: Microbiology 07/30/24 11:02 - Preliminary Blood - Venous 07/30/24 10:51 Blood Culture - Final Blood - Central Line No growth after 5 days. Assessment and Plan (1) Metabolic encephalopathy: Status: Acute (2) Hermansky-Pudlak syndrome: Status: Acute (3) Septic shock: Status: Acute Plan 59yo F with Hermansky-Pudlak syndrome, DM2, developmental delay, HTN admitted to ICU with septic shock from pyelonephritis requiring pressor support, E coli bacteremia [sensitive to ceftriaxone]. Large unstageable cocycgeal ulcer and alk phos 1200+. Hospitazliation complicated by encephalopathy, seizure-like activity, pancytopenia, and CHICHI off pressors >48hr and stepped down to telemetry 07/27/24 septic shock due to E. coli bacteremia/pyelonephritis ceftriaxone 07/21-, repeat BCx 07/25 negative, will need 2 wk therapy for bacteremia but anyways will be on ceftriaxone for 6 wk for osteomyelitis febrile 07/29 evening -- repeat cx sent, negative to date. urine culture 07/30 -?isabel albicans > 100,000 cfu/mL(?contaminant) acute/chronic coccygeal osteomyelitis nasal mrsa screen neg was on ceftriaxone + vancomycin 07/22: vanco trough 14.4 (08/02/24) d/w Id in detail -dc vanco (08/01)(due to no blood culture neg for mrsa , nasal mrsa negative) currently on ceftriaxone (07/22) Wound Care consulted: Sacrum - Off Load Pressure - Cleanse with PH balance spray or wipes, pat dry. ?Apply thin layer of Triad to wound bed - only pat and dab no scrub and rub when soiling occurs. Reapply thin layer PRN after each episode of incontinence. wound care:sacral wound(POA). Turn and Reposition every 2 hours and as needed for patient comfort.? Use pillows or wedges to support off loading positions. Off Load all bony prominences with use of pillows and heel boots if needed.? Apply Preventative foams where needed. ? Monitor for incontinence and moisture control, use barrier creams when needed for prevention and treatment. Provide adequate and supplemental nutrition.? Continue low air loss mattress. When applicable maintain blood glucose levels per Providers order. Sacrum - Off Load Pressure - Cleanse and irrigate with NS, pat dry. ?Apply antifungal powder to periwound followed by thin layer of Triad, lightly pack wound bed with Durafiber AG, cover with dry gauze, ABD pad and secure in place. Change every other day and PRN for soiling. Right Nose - Should patient begin to pick at scab on nose - Cleanse with NS cover with hydrocolloid change every 3-4 days. Otherwise may leave VALIDATION TECHNICIAN at this time acute encephalopathy due to sepsis electrolytes ,ammonia seems fine sats seems fine,tapering oxygen mental status somewhat improving-please see below neuro impression. seizure-like activity no new activity noted.was on keppra from icu. EEG -abnormal EEG due to moderately severe diffuse background slowing consistent with diffuse encephalopathic process. No clearly epileptiform discharges are seen. neuorlogy eval -Infectious. metabolic encephalopathy. Recom. Treat underlying infectious and metabolic abnormalities. d/w neuro -patient does not have any hx of seizures ,eeg -neg ,so stop eliezer. severe malnutrition- on tube feeds per Nutrition recommendation, removed NGT x2, OGT -replaced in 07/30/24 . patient is eating somewhat, plan is to slowly taper g tube feeding moniter bmp closely hypoPO4- on replacements . calcium levels normal when adjusted for albumin. pancytopenia due to septic shock - transfused 1u pRBCs 07/28 with appropriate response; transfused second unit 07/30 with improvement h/h stable moniter cbc CHICHI due to ATN from septic shock HyperNa - Cr improved; note that it is falsely low due to poor muscle mass improved with ivf. DM2 with hyperglycemia adjusted joe-dose lispro, if needed will add lantus. HTN-boderline, hold lisinopril VTE ppx - SCDs, resume enoxaparin since h/h improving dispo - PT/OT/PAPER PRODUCTS PRINTER evals In my clinical judgment, the patient requires continued inpatient hospitalization for the following reasons: IV ABX, tube feeds, Id follow for antibiotics duration/use, also still has g tube due to low po intake and need to encourage for po intake in order to take out g tube . Total time managing care of this patient today: 55 minutes. Quality Stroke Does the patient have a stroke diagnosis?: No VTE Prior VTE?: No VTE Risk Level:: Medical - moderate - high VTE Device Contraindication: Treatment Not Indicated VTE Drug Contraindication: N/A - Med Ordered
[2024-08-05 12:25] LABS: Glucose, Whole Blood 395 mg/dL (60-115)
[2024-08-05] MEDS: Sodium,Potassium Phosphates POWD.PACK 1 PACKET G-TUBE ×3 (12:36→21:13)
[2024-08-05] MEDS: Insulin Lispro 100 UNIT/ML 3 ML VIAL SUBCUT (12:36)
[2024-08-05 16:00] VITALS: BP 100/59; PULSE 116; RESP 18; TEMP 37.2; O2SAT 95
[2024-08-05 16:11] LABS: Platelet Count 199 X10*3/uL (160-400)
[2024-08-05 16:19] LABS: Anion Gap 12 (12-20); Blood Urea Nitrogen 20 mg/dL (9-16); Calcium 7.4 mg/dL (8.4-10.2); Carbon Dioxide 29 mmol/L (22-29); Chloride 101 mmol/L (96-108); Creatinine Clr Calc Pharmacy 58.1; Estimated Glomerular Filt Rate > 60; Glucose Random 208 mg/dL (60-115); Potassium 4.4 mmol/L (3.3-5.1); Sodium 138 mmol/L (135-145)
[2024-08-05] MEDS: Lactated Ringers 1,000 ML 80 ML IVCONT (16:41)
[2024-08-05 18:07] LABS: Glucose, Whole Blood 142 mg/dL (60-115)
[2024-08-05 19:44] VITALS: BP 114/61; PULSE 109; RESP 19; TEMP 36.8; O2SAT 98
[2024-08-05 19:54] LABS: Glucose, Whole Blood 140 mg/dL (60-115)
[2024-08-06] VITALS: BP 109/61; PULSE 102; RESP 18; TEMP 36.8; O2SAT 96
[2024-08-06 00:30] LABS: Glucose, Whole Blood 189 mg/dL (60-115)
[2024-08-06] MEDS: Insulin Lispro 100 UNIT/ML 3 ML VIAL SUBCUT ×3 (00:57→18:29)
[2024-08-06] MEDS: Albumin Human 25 % 100 ML IV (00:58)
[2024-08-06 03:25] VITALS: BP 104/57; PULSE 102; RESP 20; TEMP 36.7; O2SAT 98
[2024-08-06 06:26] LABS: Glucose, Whole Blood 141 mg/dL (60-115)
[2024-08-06 06:37] LABS: Creatinine Clr Calc Pharmacy 55.3; Estimated Glomerular Filt Rate > 60
[2024-08-06] MEDS: cefTRIAXone sodium 2 GM VIAL IVPUSH (07:39)
[2024-08-06] MEDS: Lactated Ringers 1,000 ML 80 ML IVCONT ×2 (07:40→20:34)
[2024-08-06] MEDS: 0.9 % Sodium Chloride Flush 10 ML SYRINGE 5 ML IVFLUSH ×2 (07:41→20:27)
[2024-08-06 07:59] VITALS: BP 102/64; PULSE 103; RESP 18; TEMP 36.5; O2SAT 98
[2024-08-06] MEDS: Sodium,Potassium Phosphates POWD.PACK 1 PACKET G-TUBE ×4 (09:12→20:18)
[2024-08-06] MEDS: Clotrimazole 1 % Cream 15 GM TUBE 1 APPL TOPICAL ×2 (09:13→20:27)
[2024-08-06] MEDS: Nystatin Powder 15 GM BOTTLE 1 APPL TOPICAL ×3 (09:13→20:27)
[2024-08-06 11:24] VITALS: BP 110/64; PULSE 105; RESP 18; TEMP 36.4; O2SAT 96
[2024-08-06 11:49] LABS: Glucose, Whole Blood 377 mg/dL (60-115)
--- NOTE | 2024-08-06 11:50 | HO.PM.IMPN ---
Subjective Subjective Date of Service: 08/06/24 Interval History: E. coli bacteremia/pyelonephritis osteo dec po intake Review of Systems seems more awake, po inatke flactuating fs improving Physical Exam Vital Signs: Vital Signs: Last Vital Signs Temp 97.6 F 08/06/24 11:24 Pulse 105 H 08/06/24 11:24 Resp 18 08/06/24 11:24 BP 110/64 08/06/24 11:24 Pulse Ox 96 08/06/24 11:24 O2 Del Method Nasal Cannula, Hu midified O2 08/06/24 11:24 O2 Flow Rate 2 08/06/24 11:24 BMI result Body Mass Index 14.1 Chronically ill-appearing Lungs clear to auscultation cvs rrr(Tachycardia), s1s2 heard. Abdomen soft and nondistended Alert but not talking coccyx dressing in place Objective Data Active Medications Acetaminophen (Acetaminophen Supp 650 Mg Supp.Rect) 650 mg [place] Q6H PRN PRN Reason: Fever >100.4 Last Admin: 07/31/24 08:36 Dose: 650 mg Documented By: TAVARES Ceftriaxone Sodium (Ceftriaxone Sodium 2 Gm Vial) 2 gm IVPUSH Q24H [facility] Last Admin: 08/06/24 07:39 Dose: 2 gm Documented By: HELEN Clotrimazole (Clotrimazole 1 % Cream 15 Gm Tube) 1 appl TOPICAL BID [facility]; Protocol Last Admin: 08/06/24 09:13 Dose: 1 appl Documented By: HELEN Enoxaparin Sodium (Enoxaparin Sodium 30 Mg/0.3 Ml Syringe) 30 mg SUBCUT Q24H [facility] Last Admin: 07/29/24 14:01 Dose: 30 mg Documented By: MATEO Dextrose (D10) 250 mls @ 750 mls/hr IV Q30M PRN PRN Reason: BG <70 Last Infusion: 08/04/24 06:16 Dose: Infused Documented By: PRAVEEN Lactated Ringer's (Lr) 1,000 mls @ 80 mls/hr IVCONT .[id number] [facility] Last Admin: 08/06/24 07:40 Dose: 80 mls/hr Documented By: HELEN Insulin Human Lispro (Insulin Lispro 100 Unit/Ml 3 Ml Vial) 0 unit SUBCUT Q6H [facility]; Protocol Last Admin: 08/06/24 06:15 Dose: Not Given Documented By: MAXWELLLAMC Non-Admin Reason: No Insulin Coverage Nystatin (Nystatin Powder 15 Gm Bottle) 1 appl TOPICAL TID [facility]; Protocol Last Admin: 08/06/24 09:13 Dose: 1 appl Documented By: HELEN Potassium Phos/Sodium Phos (Sodium,Potassium Phosphates Powd.Pack) 1 packet G-TUBE QID [facility] Last Admin: 08/06/24 09:12 Dose: 1 packet Documented By: HELEN Sodium Biphosphate/Sodium Phosphate (Sodium Phosphate,Green-Dibasic 133 Ml Enema) 133 ml ME ONCE PRN PRN Reason: Constipation Sodium Chloride (0.9 % Sodium Chloride Flush 3 Ml Syringe) 3 ml IVFLUSH QSHIFT [facility] Last Admin: 08/06/24 09:13 Dose: Not Given Documented By: HELEN Non-Admin Reason: IV Running Sodium Chloride (0.9 % Sodium Chloride Flush 10 Ml Syringe) 5 ml IVFLUSH TID [facility] Last Admin: 08/06/24 07:41 Dose: 5 ml Documented By: HELEN Labs 08/05/24 07:48 08/06/24 05:54 Labs: Laboratory Results - last 24 hr 08/05/24 08/05/24 08/05/24 07:48 12:15 18:04 Plt Count 199 Anion Gap 12 Estim Creat Clear Calc 58.1 Estimated GFR > 60 POC Glucose 395 H* 142 H Random Glucose 208 H Calcium 7.4 L 08/05/24 08/06/24 08/06/24 19:51 00:25 05:54 Plt Count Anion Gap Estim Creat Clear Calc 55.3 Estimated GFR > 60 POC Glucose 140 H 189 H Random Glucose Calcium 08/06/24 08/06/24 06:11 11:45 Plt Count Anion Gap Estim Creat Clear Calc Estimated GFR POC Glucose 141 H 377 H* Random Glucose Calcium Assessment and Plan (1) Metabolic encephalopathy: Status: Acute (2) Hermansky-Pudlak syndrome: Status: Acute (3) Septic shock: Status: Acute Plan 59yo F with Hermansky-Pudlak syndrome, DM2, developmental delay, HTN admitted to ICU with septic shock from pyelonephritis requiring pressor support, E coli bacteremia [sensitive to ceftriaxone]. Large unstageable cocycgeal ulcer and alk phos 1200+. Hospitazliation complicated by encephalopathy, seizure-like activity, pancytopenia, and CHICHI off pressors >48hr and stepped down to telemetry 07/27/24 septic shock due to E. coli bacteremia/pyelonephritis ceftriaxone 07/21-, repeat BCx 07/25 negative, will need 2 wk therapy for bacteremia but anyways will be on ceftriaxone for 6 wk for osteomyelitis febrile 07/29 evening -- repeat cx sent, negative to date. urine culture 07/30 -?isabel albicans > 100,000 cfu/mL(?contaminant) acute/chronic coccygeal osteomyelitis nasal mrsa screen neg was on ceftriaxone + vancomycin 07/22: vanco trough 14.4 (08/02/24) d/w Id in detail -dc vanco (08/01)(due to no blood culture neg for mrsa , nasal mrsa negative) currently on ceftriaxone (07/22) Wound Care consulted: Sacrum - Off Load Pressure - Cleanse with PH balance spray or wipes, pat dry. ?Apply thin layer of Triad to wound bed - only pat and dab no scrub and rub when soiling occurs. Reapply thin layer PRN after each episode of incontinence. wound care:sacral wound(POA). Turn and Reposition every 2 hours and as needed for patient comfort.? Use pillows or wedges to support off loading positions. Off Load all bony prominences with use of pillows and heel boots if needed.? Apply Preventative foams where needed. ? Monitor for incontinence and moisture control, use barrier creams when needed for prevention and treatment. Provide adequate and supplemental nutrition.? Continue low air loss mattress. When applicable maintain blood glucose levels per Providers order. Sacrum - Off Load Pressure - Cleanse and irrigate with NS, pat dry. ?Apply antifungal powder to periwound followed by thin layer of Triad, lightly pack wound bed with Durafiber AG, cover with dry gauze, ABD pad and secure in place. Change every other day and PRN for soiling. Right Nose - Should patient begin to pick at scab on nose - Cleanse with NS cover with hydrocolloid change every 3-4 days. Otherwise may leave TECHNICAL SUPPORT TECHNICIAN at this time acute encephalopathy due to sepsis electrolytes ,ammonia seems fine sats seems fine,tapering oxygen mental status somewhat improving-please see below neuro impression. seizure-like activity no new activity noted.was on keppra from icu. EEG -abnormal EEG due to moderately severe diffuse background slowing consistent with diffuse encephalopathic process. No clearly epileptiform discharges are seen. neuorlogy eval -Infectious. metabolic encephalopathy. Recom. Treat underlying infectious and metabolic abnormalities. d/w neuro -patient does not have any hx of seizures ,eeg -neg ,so stop keppra. severe malnutrition- on tube feeds per Nutrition recommendation, removed NGT x2, OGT -replaced in 07/30/24 . patient is eating somewhat, plan is to slowly taper g tube feeding moniter bmp closely hypoPO4- on replacements . calcium levels normal when adjusted for albumin. pancytopenia due to septic shock - transfused 1u pRBCs 07/28 with appropriate response; transfused second unit 07/30 with improvement h/h stable moniter cbc CHICHI due to ATN from septic shock HyperNa - Cr improved; note that it is falsely low due to poor muscle mass improved with ivf. DM2 with hyperglycemia adjusted joe-dose lispro, if needed will add lantus. HTN-boderline, hold lisinopril VTE ppx - SCDs, resume enoxaparin since h/h improving dispo - PT/OT/WIENER PACKER evals In my clinical judgment, the patient requires continued inpatient hospitalization for the following reasons: IV ABX, tube feeds, Id follow for antibiotics duration/use, also still has g tube due to low po intake and need to encourage for po intake in order to take out g tube . Total time managing care of this patient today: 55 minutes. Quality Stroke Does the patient have a stroke diagnosis?: No VTE Prior VTE?: No VTE Risk Level:: Medical - moderate - high VTE Device Contraindication: Treatment Not Indicated VTE Drug Contraindication: N/A - Med Ordered
[2024-08-06] MEDS: Enoxaparin Sodium 30 MG/0.3 ML SYRINGE SUBCUT (12:11)
[2024-08-06 15:30] VITALS: BP 119/64; PULSE 107; RESP 18; TEMP 37; O2SAT 97
[2024-08-06 18:01] LABS: Glucose, Whole Blood 262 mg/dL (60-115)
[2024-08-06 20:00] VITALS: BP 121/67; PULSE 114; RESP 18; TEMP 36.9; O2SAT 96
[2024-08-06] MEDS: 0.9 % Sodium Chloride Flush 3 ML SYRINGE IVFLUSH (20:28)
[2024-08-06 23:30] LABS: Glucose, Whole Blood 123 mg/dL (60-115)
[2024-08-07] VITALS (7 sets, daily range): BP systolic 113–139; BP diastolic 63–77; PULSE 105–118; RESP 16–20; TEMP 36.4–37.3; O2SAT 93–98
--- NOTE | 2024-08-07 00:43 | PM.EVENT ---
Event Note Date of Service: 08/06/24 Event Note: 11:33 PM - Contacted to notify patient's NG tube is flushing but the tube feed pump is not infusing at a rate of 25 ml/hr likely due to resistance as it is a very small tube. As the pump has been infusing well at a higher rate and flushing adequately we will keep the NG tube in place for now and infuse at a higher rate (45 ml/hr) again for at 3 least hours so patient reaches the daily calories intake (pt is also eating) and ask reassessment in am by dietary team. Time Spent With Patient Time: Total time managing care of this patient today ____ minutes.
--- NOTE | 2024-08-07 04:09 | PC.NURSE ---
tube feed repeatedly clogging when running at 25mL/hr. MD at bedside. feeding started at previous rate of 45/hr without clogging. per MD direction, feed run from approx 0100 to 0400. NGT flushed with sterile water once feed duration completed. pt tolerated well with residual less than 10mL. plan of care ongoing
[2024-08-07 05:45] LABS: Glucose, Whole Blood 238 mg/dL (60-115)
[2024-08-07] MEDS: Insulin Lispro 100 UNIT/ML 3 ML VIAL SUBCUT ×3 (05:54→17:36)
[2024-08-07 06:40] LABS: Creatinine Clr Calc Pharmacy 51.9; Estimated Glomerular Filt Rate > 60
[2024-08-07] MEDS: Sodium,Potassium Phosphates POWD.PACK 1 PACKET G-TUBE ×4 (08:33→22:33)
[2024-08-07] MEDS: cefTRIAXone sodium 2 GM VIAL IVPUSH (08:33)
[2024-08-07] MEDS: Clotrimazole 1 % Cream 15 GM TUBE 1 APPL TOPICAL ×2 (08:34→22:33)
[2024-08-07] MEDS: Nystatin Powder 15 GM BOTTLE 1 APPL TOPICAL ×3 (08:34→22:34)
[2024-08-07] MEDS: 0.9 % Sodium Chloride Flush 10 ML SYRINGE 5 ML IVFLUSH ×3 (08:34→22:34)
--- NOTE | 2024-08-07 09:51 | P.PNIM_ITS ---
Subjective Subjective Date of Service: 08/07/24 Interval History: dec po intake ecoli bactermia pyelo Review of Systems seems more awake, po inatke somewhat improving fs improving Physical Exam 2 Vital Signs: Vital Signs: Last Vital Signs Temp 98.0 F 08/07/24 07:25 Pulse 110 H 08/07/24 07:25 Resp 18 08/07/24 07:25 BP 124/76 08/07/24 07:25 Pulse Ox 98 08/07/24 07:25 O2 Del Method Nasal Cannula, Hu midified O2 08/07/24 07:25 O2 Flow Rate 2 08/07/24 07:25 BMI result Body Mass Index 14.1 Chronically ill-appearing Lungs clear to auscultation cvs rrr, s1s2 heard. Abdomen soft and nondistended Alert but not talking coccyx dressing in place Objective Data Active Medications Acetaminophen (Acetaminophen Supp 650 Mg Supp.Rect) 650 mg [place] Q6H PRN PRN Reason: Fever >100.4 Last Admin: 07/31/24 08:36 Dose: 650 mg Documented By: TAVARES Ceftriaxone Sodium (Ceftriaxone Sodium 2 Gm Vial) 2 gm IVPUSH Q24H [facility] Last Admin: 08/07/24 08:33 Dose: 2 gm Documented By: MATEO Clotrimazole (Clotrimazole 1 % Cream 15 Gm Tube) 1 appl TOPICAL BID [facility]; Protocol Last Admin: 08/07/24 08:34 Dose: 1 appl Documented By: MATEO Enoxaparin Sodium (Enoxaparin Sodium 30 Mg/0.3 Ml Syringe) 30 mg SUBCUT Q24H [facility] Last Admin: 08/06/24 12:11 Dose: 30 mg Documented By: STACIAN Dextrose (D10) 250 mls @ 750 mls/hr IV Q30M PRN PRN Reason: BG <70 Last Infusion: 08/04/24 06:16 Dose: Infused Documented By: PRAVEEN Insulin Human Lispro (Insulin Lispro 100 Unit/Ml 3 Ml Vial) 0 unit SUBCUT Q6H [facility]; Protocol Last Admin: 08/07/24 05:54 Dose: 4 unit Documented By: MAUREEN Nystatin (Nystatin Powder 15 Gm Bottle) 1 appl TOPICAL TID [facility]; Protocol Last Admin: 08/07/24 08:34 Dose: 1 appl Documented By: MATEO Potassium Phos/Sodium Phos (Sodium,Potassium Phosphates Powd.Pack) 1 packet G- TUBE QID [facility] Last Admin: 08/07/24 08:33 Dose: 1 packet Documented By: MATEO Sodium Biphosphate/Sodium Phosphate (Sodium Phosphate,[place]-Dibasic 133 Ml Enema) 133 ml [place] ONCE PRN PRN Reason: Constipation Sodium Chloride (0.9 % Sodium Chloride Flush 3 Ml Syringe) 3 ml IVFLUSH QSHIFT [facility] Last Admin: 08/07/24 08:34 Dose: Not Given Documented By: MATEO Non-Admin Reason: No Access Sodium Chloride (0.9 % Sodium Chloride Flush 10 Ml Syringe) 5 ml IVFLUSH TID [facility] Last Admin: 08/07/24 08:34 Dose: 5 ml Documented By: MATEO Labs 08/05/24 07:48 08/07/24 06:13 Labs: Laboratory Results - last 24 hr 08/06/24 08/06/24 08/06/24 05:54 11:45 17:58 Hold Purple Top SEE NOTE Estim Creat Clear Calc Estimated GFR POC Glucose 377 H* 262 H 08/06/24 08/07/24 08/07/24 23:25 05:41 06:13 Hold Purple Top Estim Creat Clear Calc 51.9 Estimated GFR > 60 POC Glucose 123 H 238 H Assessment and Plan (1) Metabolic encephalopathy: Status: Acute (2) Hermansky-Pudlak syndrome: Status: Acute (3) Septic shock: Status: Acute Plan 59yo F with Hermansky-Pudlak syndrome, DM2, developmental delay, HTN admitted to ICU with septic shock from pyelonephritis requiring pressor support, E coli bacteremia [sensitive to ceftriaxone]. Large unstageable cocycgeal ulcer and alk phos 1200+. Hospitazliation complicated by encephalopathy, seizure-like activity, pancytopenia, and CHICHI off pressors >48hr and stepped down to telemetry 07/27/24 septic shock due to E. coli bacteremia/pyelonephritis ceftriaxone 07/21-, repeat BCx 07/25 negative, will need 2 wk therapy for bacteremia but anyways will be on ceftriaxone for 6 wk for osteomyelitis febrile 07/29 evening -- repeat cx sent, negative to date. urine culture 07/30 -?isabel albicans > 100,000 cfu/mL(?contaminant) acute/chronic coccygeal osteomyelitis nasal mrsa screen neg was on ceftriaxone + vancomycin 07/22: vanco trough 14.4 (08/02/24) d/w Id in detail -dc vanco (08/01)(due to no blood culture neg for mrsa , nasal mrsa negative) currently on ceftriaxone (07/22) patient will need id followup -plan of antibiotics. Wound Care consulted: Sacrum - Off Load Pressure - Cleanse with PH balance spray or wipes, pat dry. ?Apply thin layer of Triad to wound bed - only pat and dab no scrub and rub when soiling occurs. Reapply thin layer PRN after each episode of incontinence. wound care:sacral wound(POA). Turn and Reposition every 2 hours and as needed for patient comfort.? Use pillows or wedges to support off loading positions. Off Load all bony prominences with use of pillows and heel boots if needed.? Apply Preventative foams where needed. ? Monitor for incontinence and moisture control, use barrier creams when needed for prevention and treatment. Provide adequate and supplemental nutrition.? Continue low air loss mattress. When applicable maintain blood glucose levels per Providers order. Sacrum - Off Load Pressure - Cleanse and irrigate with NS, pat dry. ?Apply antifungal powder to periwound followed by thin layer of Triad, lightly pack wound bed with Durafiber AG, cover with dry gauze, ABD pad and secure in place. Change every other day and PRN for soiling. Right Nose - Should patient begin to pick at scab on nose - Cleanse with NS cover with hydrocolloid change every 3-4 days. Otherwise may leave RADAMES at this time acute encephalopathy due to sepsis electrolytes ,ammonia seems fine sats seems fine,tapering oxygen mental status somewhat improving-please see below neuro impression. seizure-like activity no new activity noted.was on keppra from icu. EEG -abnormal EEG due to moderately severe diffuse background slowing consistent with diffuse encephalopathic process. No clearly epileptiform discharges are seen. neuorlogy eval -Infectious. metabolic encephalopathy. Recom. Treat underlying infectious and metabolic abnormalities. d/w neuro Dr Veliz-patient does not have any hx of seizures ,eeg -neg ,so stop keppra. severe malnutrition- on tube feeds per Nutrition recommendation, removed NGT x2, OGT -replaced in 07/30/24 . patient is eating somewhat, plan is to slowly taper g tube feeding- plan to tepr feeding to stop ,her po intake is improving from 50-75% moniter off ngt moniter bmp closely hypoPO4- on replacements . calcium levels normal when adjusted for albumin. pancytopenia due to septic shock - transfused 1u pRBCs 07/28 with appropriate response; transfused second unit 07/30 with improvement h/h stable moniter cbc CHICHI due to ATN from septic shock HyperNa - Cr improved; note that it is falsely low due to poor muscle mass improved with ivf. DM2 with hyperglycemia adjusted joe-dose lispro, if needed will add lantus. HTN-boderline, hold lisinopril VTE ppx - SCDs, resume enoxaparin since h/h improving dispo - PT/OT/BOX CAR BRACER evals In my clinical judgment, the patient requires continued inpatient hospitalization for the following reasons: IV ABX, tube feeds, Id follow for antibiotics duration/use, also still has g tube due to low po intake and need to encourage for po intake in order to take out g tube . Total time managing care of this patient today: 55 minutes. Quality Stroke Does the patient have a stroke diagnosis?: No VTE Prior VTE?: No VTE Risk Level:: Medical - moderate - high VTE Device Contraindication: Treatment Not Indicated VTE Drug Contraindication: N/A - Med Ordered
--- NOTE | 2024-08-07 09:54 | MHC.CLN ---
F/U REVIEWED LABS-UNREMARKABLE DIET RX: PUREED -APPROPRIATE PT WITH VARIABLE PO INTAKE RANGING FROM 0-75% PT'S NURSE REPORTED TF CLOGGING WHEN RUNNING AT 25ML/HR, BUT TF DOES NOT CLOG WHEN RUNNING AT 45ML/HR ( PREVIOUSLY RECEIVING) RECOMMEND TF GLUCERNA AT 45ML/HR X 12 HOURS CONTINUOUS WITH 120ML FREE WATER FLUSHES Q 8 HRS TO PROVIDE 540KCALS, 22.5G PROTEIN, 821ML TOTAL FREE WATER FROM FORMULA AND FLUSHES TF PROVIDES 51% OF ESTIMATED KCALS, 42% ESTIMATED PROTEIN NEEDS, 67% ESTIMATED FLUID NEEDS PLAN TO REDUCE TF RATE PO INTAKE IMPROVES CONTINUE TO MONITOR PO INTAKE CLOSELY ALONG WITH TF TOLERANCE AND LYTES
--- NOTE | 2024-08-07 10:17 | MHC.CM.PN ---
Addendum entered by Kelly Schmitz 08/07/24 10:23: Per MD at [facility] today, Patient is not cognitively able at this time, to complete a HCP. CM will follow. Original Note: CM spoke with Patient's Sister/Caregiver/Mojgan @ [phone]. Mojgan explains that she has been Patient's Caregiver since Mojgan was 17 years old and the plan is definitely for Patient to return home (Mojgan confirmed that she is able to provide / care).If Patient were eligible for STR, Mojgan would consider STR, but not LTC. Mojgan questioned whether [facility] would have a copy of Patient's HCP(Mojgan explains that Patient cannot read nor write so she is not sure if a formal HCP has ever been done). CM awaits response from [facility] regarding the possibility of them having a copy of a HCP. CM will follow.
--- NOTE | 2024-08-07 10:44 | MHC.CM.PN ---
[facility] is faxing a copy of Patient's HCP.
[2024-08-07 11:59] LABS: Glucose, Whole Blood 163 mg/dL (60-115)
[2024-08-07] MEDS: Enoxaparin Sodium 30 MG/0.3 ML SYRINGE SUBCUT (12:25)
--- NOTE | 2024-08-07 13:45 | MHC.CM.PN ---
CM left a detailed message for Sister/HCP/Mojgan at [phone], requesting the name of Patient's PCP. [facility] has faxed over a copy of the HCP and it has been uploaded into [facility] and a copy was placed on the chart.During this note, Mojgan returned CM's call; Patient has no PCP.
[2024-08-07 17:36] LABS: Glucose, Whole Blood 261 mg/dL (60-115)
[2024-08-08 00:14] LABS: Glucose, Whole Blood 200 mg/dL (60-115)
[2024-08-08] MEDS: 0.9 % Sodium Chloride Flush 3 ML SYRINGE IVFLUSH ×4 (00:32→21:20)
[2024-08-08] MEDS: Insulin Lispro 100 UNIT/ML 3 ML VIAL SUBCUT ×4 (00:32→18:07)
[2024-08-08 03:37] VITALS: BP 130/76; PULSE 117; RESP 16; TEMP 36.9; O2SAT 91
[2024-08-08 05:18] LABS: Glucose, Whole Blood 169 mg/dL (60-115)
[2024-08-08 06:44] LABS: Creatinine Clr Calc Pharmacy 55.3; Estimated Glomerular Filt Rate > 60
[2024-08-08 07:08] VITALS: BP 117/71; PULSE 117; RESP 18; TEMP 36.6; O2SAT 99
[2024-08-08] MEDS: Sodium,Potassium Phosphates POWD.PACK 1 PACKET G-TUBE ×2 (08:55→17:12)
[2024-08-08] MEDS: Clotrimazole 1 % Cream 15 GM TUBE 1 APPL TOPICAL ×2 (08:55→21:20)
[2024-08-08] MEDS: Nystatin Powder 15 GM BOTTLE 1 APPL TOPICAL ×3 (08:55→21:20)
[2024-08-08] MEDS: 0.9 % Sodium Chloride Flush 10 ML SYRINGE 5 ML IVFLUSH ×2 (09:00→21:18)
--- NOTE | 2024-08-08 10:17 | MHC.CM.PN ---
Per [facility] discussion, N/G tube will be dc'd today and home with 24/7 care from Sister/HCP/Mojgan is the goal within the next few days. CM will follow.
[2024-08-08 10:55] LABS: Glucose, Whole Blood 323 mg/dL (60-115)
[2024-08-08 11:14] VITALS: BP 100/58; PULSE 106; RESP 20; TEMP 36.3; O2SAT 98
[2024-08-08] MEDS: Enoxaparin Sodium 30 MG/0.3 ML SYRINGE SUBCUT (11:43)
--- NOTE | 2024-08-08 14:11 | MHC.SPEECHCO ---
Pt resting soundly, not opening her eyes or responding when asked if she want to trial PO. Per DIRECTOR OF CONVENTION SERVICES she's had a long day, including removal of her NG tube. W[employer] FARM SUPPORT SPECIALIST will follow-up x1 for tolerance without NG tube present.
[2024-08-08 15:13] VITALS: BP 134/76; PULSE 111; RESP 16; TEMP 36.6; O2SAT 95
--- NOTE | 2024-08-08 15:35 | P.PNIM_ITS ---
Subjective Subjective Date of Service: 08/08/24 Interval History: Being followed for osteomyelitis/bacteremia. Tolerating by mouth feeds, denies pain, no fevers, no chills, no abdominal pain, no nausea, no vomiting no acute overnight events, receiving NG-tube feedings. Review of Systems All other system reviewed and are negative Physical Exam 2 Vital Signs: Vital Signs: Last Vital Signs Temp 97.8 F 08/08/24 15:13 Pulse 111 H 08/08/24 15:13 Resp 16 08/08/24 15:13 BP 134/76 08/08/24 15:13 Pulse Ox 95 08/08/24 15:13 O2 Del Method Room Air 08/08/24 15:13 O2 Flow Rate 2 08/08/24 11:14 BMI result Body Mass Index 14.1 Const: Other: General awake alert, weak cachectic appearing, in no acute distress. Neck no JVD. CVS regular rate rhythm, no murmurs Respiratory lungs clear to auscultation, no respiratory distress, no wheeze, no rhonchi. Gastrointestinal abdomen soft, non tender, bowel sounds audible, no guarding , no rigidity. Extremities right upper extremity PICC line, no edema. Neuro speech clear. Skin left upper extremity ecchymosis Objective Data Active Medications Acetaminophen (Acetaminophen Supp 650 Mg Supp.Rect) 650 mg [place] Q6H PRN PRN Reason: Fever >100.4 Last Admin: 07/31/24 08:36 Dose: 650 mg Documented By: TAVARES Clotrimazole (Clotrimazole 1 % Cream 15 Gm Tube) 1 appl TOPICAL BID [facility]; Protocol Last Admin: 08/08/24 08:55 Dose: 1 appl Documented By: ESEQUIEL Enoxaparin Sodium (Enoxaparin Sodium 30 Mg/0.3 Ml Syringe) 30 mg SUBCUT Q24H [facility] Last Admin: 08/08/24 11:43 Dose: 30 mg Documented By: ESEQUIEL Dextrose (D10) 250 mls @ 750 mls/hr IV Q30M PRN PRN Reason: BG <70 Last Infusion: 08/04/24 06:16 Dose: Infused Documented By: PRAVEEN Insulin Human Lispro (Insulin Lispro 100 Unit/Ml 3 Ml Vial) 0 unit SUBCUT Q6H [facility]; Protocol Last Admin: 08/08/24 11:43 Dose: 6 unit Documented By: ESEQUIEL Nystatin (Nystatin Powder 15 Gm Bottle) 1 appl TOPICAL TID [facility]; Protocol Last Admin: 08/08/24 08:55 Dose: 1 appl Documented By: ESEQUIEL Potassium Phos/Sodium Phos (Sodium,Potassium Phosphates Powd.Pack) 1 packet G- TUBE QID [facility] Last Admin: 08/08/24 13:36 Dose: Not Given Documented By: ESEQUIEL Non-Admin Reason: Patient Refused Sodium Biphosphate/Sodium Phosphate (Sodium Phosphate,[place]-Dibasic 133 Ml Enema) 133 ml [place] ONCE PRN PRN Reason: Constipation Sodium Chloride (0.9 % Sodium Chloride Flush 3 Ml Syringe) 3 ml IVFLUSH QSHIFT [facility] Last Admin: 08/08/24 08:59 Dose: 3 ml Documented By: ESEQUIEL Sodium Chloride (0.9 % Sodium Chloride Flush 10 Ml Syringe) 5 ml IVFLUSH TID [facility] Last Admin: 08/08/24 09:00 Dose: 5 ml Documented By: ESEQUIEL Labs 08/05/24 07:48 08/08/24 05:09 Labs: Laboratory Results - last 24 hr 08/07/24 08/08/24 08/08/24 17:32 00:10 05:09 Estim Creat Clear Calc 55.3 Estimated GFR > 60 POC Glucose 261 H 200 H 08/08/24 08/08/24 05:12 10:49 Estim Creat Clear Calc Estimated GFR POC Glucose 169 H 323 H Assessment and Plan (1) Metabolic encephalopathy: Status: Acute (2) Septic shock: Status: Acute (3) UTI (urinary tract infection): Status: Acute Plan 59yo F with Hermansky-Pudlak syndrome, DM2, developmental delay, HTN admitted to ICU with septic shock from pyelonephritis requiring pressor support, E coli bacteremia [sensitive to ceftriaxone]. Large unstageable cocycgeal ulcer and alk phos 1200+. Hospitazliation complicated by encephalopathy, seizure-like activity, pancytopenia, and CHICHI off pressors >48hr and stepped down to telemetry 07/27/24 Septic shock due to E. coli bacteremia/pyelonephritis E coli 1/2 blood culture positive 07/21-, repeat BCx 07/25 negative, receive 2 week therapy of bacteremia, on ceftriaxone for 6 wk for osteomyelitis. febrile 07/29 evening -- repeat cx negative to date. urine culture 07/30 -?isabel albicans > 100,000 cfu/mL(?contaminant) acute on chronic coccygeal/sacral osteomyelitis nasal mrsa screen neg s/p vancomycin 07/22 thru 08/01 discontinued since blood cultures negative for MRSA, nasal MRSA negative currently on ceftriaxone started 07/21 end date 09/01 Wound Care consulted: Sacrum - Off Load Pressure - Cleanse with PH balance spray or wipes, pat dry. ?Apply thin layer of Triad to wound bed - only pat and dab no scrub and rub when soiling occurs. Reapply thin layer PRN after each episode of incontinence. acute toxic metabolic encephalopathy resolved Normal electrolytes , ammonia and CT head, likely due to infection, and CHICHI Seizure-like activity noted in ICU EEG -abnormal due to moderately severe diffuse background slowing consistent with diffuse encephalopathic process. No clear epileptiform discharges seen. neuorlogy recommend to treat underlying infection/metabolic abnormalities, Keppra discontinued since no history of seizures . Severe malnutrition- on tube feeds per Nutrition recommendation, since by mouth intake improved will DC tube feeds moniter bmp closely hypoPO4- on replacements . Follow phosphorus level, calcium levels normal when adjusted for albumin. Pancytopenia due to septic shock, hematocrit improved after 2 units of packed RBC, platelets normalized follow CBC CHICHI due to ATN from septic shock resolved. Acute hypernatremia resolved with fluids DM2 with hyperglycemia elevated blood sugars, continue insulin sliding scale, resume low-dose Lantus if by mouth intake remains stable, on insulin 24 units at bedtime at home. HTN-soft blood pressure will continue to hold lisinopril VTE ppx Lovenox subQ dispo PT rec 10/05 care at home or LTC In my clinical judgment, the patient requires continued inpatient hospitalization for the following reasons: IV ABX, monitoring for by mouth intake and safe disposition Quality Stroke Does the patient have a stroke diagnosis?: No VTE Prior VTE?: No VTE Risk Level:: Medical - moderate - high VTE Device Contraindication: Treatment Not Indicated VTE Drug Contraindication: N/A - Med Ordered
[2024-08-08] MEDS: cefTRIAXone sodium 2 GM VIAL IVPUSH (17:12)
[2024-08-08 18:00] LABS: Glucose, Whole Blood 257 mg/dL (60-115)
[2024-08-08 20:00] VITALS: BP 126/73; PULSE 127; RESP 16; TEMP 37.1; O2SAT 93
[2024-08-08 21:01] LABS: Glucose, Whole Blood 105 mg/dL (60-115)
[2024-08-08 23:21] VITALS: BP 133/72; PULSE 131; RESP 20; TEMP 36.1; O2SAT 92
[2024-08-09] VITALS (7 sets, daily range): BP systolic 103–117; BP diastolic 60–72; PULSE 110–124; RESP 15–19; TEMP 36.7–37.8; O2SAT 94–98
[2024-08-09 07:03] LABS: Glucose, Whole Blood 204 mg/dL (60-115)
[2024-08-09] MEDS: 0.9 % Sodium Chloride Flush 10 ML SYRINGE 5 ML IVFLUSH ×2 (08:42→21:07)
[2024-08-09] MEDS: Sodium,Potassium Phosphates POWD.PACK 1 PACKET G-TUBE ×2 (08:44→21:06)
[2024-08-09] MEDS: Nystatin Powder 15 GM BOTTLE 1 APPL TOPICAL ×2 (08:45→21:07)
[2024-08-09] MEDS: Clotrimazole 1 % Cream 15 GM TUBE 1 APPL TOPICAL ×2 (08:45→21:07)
[2024-08-09] MEDS: Insulin Lispro 100 UNIT/ML 3 ML VIAL SUBCUT ×4 (08:46→21:06)
[2024-08-09 11:02] LABS: Glucose, Whole Blood 232 mg/dL (60-115)
[2024-08-09] MEDS: Enoxaparin Sodium 30 MG/0.3 ML SYRINGE SUBCUT (11:36)
--- NOTE | 2024-08-09 11:40 | MHC.CLN ---
F/U PO INTAKE 75-100% X 6 MEALS DIET RX: PUREED -APPROPRIATE TF D/C 08/07 DIET ORDER UPDATED RECOMMEND ADDING ENSURE MAX BID TO PROMOTE WOUND HEALING SUPP TO PROVIDE 300KCALS, 60G PROTEIN CONTINUE TO MONITOR PO INTAKE CLOSELY
--- NOTE | 2024-08-09 11:45 | HO.WOUND ---
Wound Consult: Follow up 59yr old?female admitted to [facility] on 07/21/24 - See progress notes and H&P for detailed history.? Wound consult follow up for sacral wound POA. Incontinence care provided and antifungal cream and triad applied to perineal and periwound. Sacrum 08/01/24 08/09/24 Etiology: ??Stage 4 Pressure Injury - Admitted with Deep Tissue Injury in Evolution Wound Bed: marbled pink moist wound bed with moist fibrinous slough small pin point exposed rough bone Drainage / Odor: no odor noted - macias yellow serosang drainage Edges: ? unattached Darby wound: ?MASD - and Fungal dermatitis Pain: pain assessed Goals of Treatment: ? Lightly pack with Durafiber AG due to frequent stools not able to use Foam dressing at this time use ABD pad. No new topical recommendations needed at this time. The patients forehead is noted for a small stable scan reportedly from removal of the oxygen sensing probe. MARSI (Medical Adhesive Related Skin Injury) - no topical interventions at this time as options are limited given use of oxygen in the general area and the scab is stable and no erythema noted. unchanged on todays assessment . The right nose noted for wound - chart review reveals suspected adhesive injury due to tube securement. Firm black scab noted - no topical interventions at this time as options are limited given use of oxygen in the general area and the scab is stable and no erythema noted. Should patient begin to pick at site direct care team may apply hydrocolloid dressing to allow for autolytic debridement and moist wound healing, change every 3-4 days. . Recommendations: 1. Turn and Reposition every 2 hours and as needed for patient comfort.? Use pillows or wedges to support off loading positions. 2. Off Load all bony prominences with use of pillows and heel boots if needed.? Apply Preventative foams where needed. ? 3. Monitor for incontinence and moisture control, use barrier creams when needed for prevention and treatment. 4. Provide adequate and supplemental nutrition.? 5. Continue low air loss mattress. 6. When applicable maintain blood glucose levels per Providers order. 7. Sacrum - Off Load Pressure - Cleanse and irrigate with NS, pat dry. ?Apply antifungal powder to periwound followed by thin layer of Triad, lightly pack wound bed with Durafiber AG, cover with dry gauze, ABD pad and secure in place. Change every other day and PRN for soiling. 8. Right Nose - Should patient begin to pick at scab on nose - Cleanse with NS cover with hydrocolloid change every 3-4 days. Otherwise may leave RADAMES at this time. Re-consult wound care Nurse for wound deterioration or wound changes.
--- NOTE | 2024-08-09 11:48 | MHC.SL.SWA ---
Speech Pathologist Impression: Risk of Aspiration Due to: Lethargy Reduced Cognition Dysphasia Diet Status: Recommend continue Puree Solids and Thin Liquids. Medications Crushed in Puree. She requires 1:1 Feeding Assistance. Prior to PO administration, ensure adequate alertness, repositioning upright with towels/pillow placed to the right side of head and neck to maintain midline posture during feeding. She benefited today from frequent verbal cues about what was being presented to her. MERCHANDISE FLOW TEAM LEADER will continue to follow. Liquid Consistency and Strategies for Safe Swallow: Liquid Intake Recommendation: Thin Liquid Intake Strategies: Small Sips Solid Food Consistency: Dietary Recommendations: Pureed (NDD1) Additional Modifications to Solid Foods: Recommend continue Puree Solids and Thin Liquids. Medications Crushed in Puree. She requires 1:1 Feeding Assistance. Prior to PO administration, ensure adequate alertness, repositioning upright with towels/pillow placed to the right side of head and neck to maintain midline posture during feeding. She benefited today from frequent verbal cues about what was being presented to her. MERCHANDISE FLOW TEAM LEADER will continue to follow. Monitor percentage of meal completion as NG tube has been removed. Oral Medication Intake: Crushed with Puree Please contact the pharmacy regarding appropriate crushable or liquid drug formulations that are available whenever modified delivery is recommended. Compensatory Strategies and Precautions to be Taken for Safe Swallow: Sitting Upright (90 deg) Small Bites and Sips Alternate Liquids/Solids Rate of Ingestion Change Oral Check Supervision While Eating and Drinking for Safe Swallow: Total Assistance (1:1) Foods to Avoid: Mixed consistencies. Swallowing Recommended Treatments: Compens. Strategy Educat. Recommendation for Speech: Inpatient Speech Therapy Comment: Frequency/Duration: PRN M-F Date Range for Service Req: Timeline to reassess: PRN Allergist Immunologist Clinican/Clinical Fellow: No Supervisory Statement: I have reviewed and agree with the student/clinical fellow's documentation: N/A Speech Language Pathologist: Ernestine Mcdaniels M.S., CCC-MERCHANDISE FLOW TEAM LEADER
--- NOTE | 2024-08-09 13:31 | P.PNIM_ITS ---
Subjective Subjective Date of Service: 08/09/24 Interval History: Being followed for osteomyelitis/bacteremia More awake alert interactive, tolerating diet, no acute overnight events, denies fever, no chills, no abdominal pain, no nausea, no vomiting. Review of Systems All other system reviewed and are negative Physical Exam 2 Vital Signs: Vital Signs: Last Vital Signs Temp 98.0 F 08/09/24 10:59 Pulse 110 H 08/09/24 12:41 Resp 18 08/09/24 10:59 BP 110/72 08/09/24 12:41 Pulse Ox 98 08/09/24 12:41 O2 Del Method Room Air 08/09/24 10:59 O2 Flow Rate 2 08/08/24 11:14 BMI result Body Mass Index 14.1 Const: Other: General awake alert, weak cachectic , in no acute distress. Neck no JVD. CVS regular rate rhythm, no murmurs Respiratory lungs clear to auscultation, no respiratory distress, no wheeze, no rhonchi. Gastrointestinal abdomen soft, non tender, bowel sounds audible, no guarding , no rigidity. Extremities right upper extremity PICC line, no edema. Neuro speech clear. Skin left upper extremity ecchymosis improving Objective Data Active Medications Acetaminophen (Acetaminophen Supp 650 Mg Supp.Rect) 650 mg CA Q6H PRN PRN Reason: Fever >100.4 Last Admin: 07/31/24 08:36 Dose: 650 mg Documented By: TAVARES Ceftriaxone Sodium (Ceftriaxone Sodium 2 Gm Vial) 2 gm IVPUSH Q24H [facility] Last Admin: 08/08/24 17:12 Dose: 2 gm Documented By: ESEQUIEL Clotrimazole (Clotrimazole 1 % Cream 15 Gm Tube) 1 appl TOPICAL BID MARTHA; Protocol Last Admin: 08/09/24 08:45 Dose: 1 appl Documented By: HENRY-NOMAM Enoxaparin Sodium (Enoxaparin Sodium 30 Mg/0.3 Ml Syringe) 30 mg SUBCUT Q24H [facility] Last Admin: 08/09/24 11:36 Dose: 30 mg Documented By: MANISHA Glucose (Glucose Gel 15 Gm Gel..Gram.) 15 gm PO Q15M PRN; Protocol PRN Reason: per Hypoglycemia Standing Ord. Dextrose (D10) 250 mls @ 750 mls/hr IV Q30M PRN PRN Reason: BG <70 Last Infusion: 08/04/24 06:16 Dose: Infused Documented By: PRAVEEN Dextrose (D10) 250 mls @ 750 mls/hr IV Q15M PRN; Protocol PRN Reason: per Hypoglycemia Standing Ord. Insulin Human Lispro (Insulin Lispro 100 Unit/Ml 3 Ml Vial) 0 unit SUBCUT QIDACHS [facility]; Protocol Last Admin: 08/09/24 11:36 Dose: 4 unit Documented By: MANISHA Nystatin (Nystatin Powder 15 Gm Bottle) 1 appl TOPICAL TID [facility]; Protocol Last Admin: 08/09/24 08:45 Dose: 1 appl Documented By: BABATUNDE Potassium Phos/Sodium Phos (Sodium,Potassium Phosphates Powd.Pack) 1 packet G- TUBE QID [facility] Last Admin: 08/09/24 08:44 Dose: 1 packet Documented By: BABATUNDE Sodium Biphosphate/Sodium Phosphate (Sodium Phosphate,[place]-Dibasic 133 Ml Enema) 133 ml CA ONCE PRN PRN Reason: Constipation Sodium Chloride (0.9 % Sodium Chloride Flush 3 Ml Syringe) 3 ml IVFLUSH QSHIFT [facility] Last Admin: 08/09/24 08:52 Dose: Not Given Documented By: BABATUNDE Non-Admin Reason: Duplicate Order Sodium Chloride (0.9 % Sodium Chloride Flush 10 Ml Syringe) 5 ml IVFLUSH TID [facility] Last Admin: 08/09/24 08:42 Dose: 5 ml Documented By: BABATUNDE Labs 08/05/24 07:48 08/08/24 05:09 Labs: Laboratory Results - last 24 hr 08/08/24 08/08/24 08/09/24 17:56 20:56 06:57 POC Glucose 257 H 105 204 H 08/09/24 10:57 POC Glucose 232 H Assessment and Plan (1) Metabolic encephalopathy: Status: Acute (2) UTI (urinary tract infection): Status: Acute (3) Cachexia: Status: Acute (4) Thrombocytopenia: Status: Acute Plan 59yo F with Hermansky-Pudlak syndrome, DM2, developmental delay, HTN admitted to ICU with septic shock from pyelonephritis requiring pressor support, E coli bacteremia [sensitive to ceftriaxone]. Large unstageable cocycgeal ulcer and alk phos 1200+. Hospitazliation complicated by encephalopathy, seizure-like activity, pancytopenia, and CHICHI off pressors >48hr and stepped down to telemetry 07/27/24 Septic shock due to E. coli bacteremia/pyelonephritis E coli 1/2 blood culture positive 07/21-, repeat BCx 07/25 negative, receive 2 week therapy of bacteremia, on ceftriaxone for 6 wk for osteomyelitis. febrile 07/29 evening -- repeat cx negative . 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 ?Apply thin layer of Triad to wound bed - only pat and dab no scrub and rub when soiling occurs. Reapply thin layer PRN after each episode of incontinence. acute toxic metabolic encephalopathy resolved Normal electrolytes , ammonia and CT head, likely due to infection, and CHICHI Seizure-like activity noted in ICU EEG -abnormal due to moderately severe diffuse background slowing consistent with diffuse encephalopathic process. No clear epileptiform discharges seen. neuorlogy recommend to treat underlying infection/metabolic abnormalities, Keppra discontinued since no history of seizures . Severe malnutrition- continue diet with supplement NG feedings discontinued Labs on collected. hypoPO4- on replacements . Follow phosphorus level, calcium levels normal when adjusted for albumin. Pancytopenia due to septic shock, hematocrit improved after 2 units of packed RBC, platelets normalized, follow CBC CHICHI due to ATN from septic shock resolved. Acute hypernatremia resolved with fluids DM2 with hyperglycemia elevated blood sugars, continue insulin sliding scale, resume low-dose Lantus if by mouth intake remains stable, on insulin 24 units at bedtime at home. HTN-soft blood pressure will continue to hold lisinopril VTE ppx Lovenox subQ dispo since patient more awake, alert following commands, will obtain PT evaluation In my clinical judgment, the patient requires continued inpatient hospitalization for the following reasons: IV ABX, monitoring for by mouth intake and safe disposition Quality Stroke Does the patient have a stroke diagnosis?: No VTE Prior VTE?: No VTE Risk Level:: Medical - moderate - high VTE Device Contraindication: Treatment Not Indicated VTE Drug Contraindication: N/A - Med Ordered
[2024-08-09 13:46] LABS: Hematocrit 26.7 % (37.0-47.0); Hemoglobin 8.7 g/dl (12.0-16.0); Mean Corpuscular HGB Conc 32.6 g/dl (31.0-35.0); Mean Corpuscular Hemoglobin 29.2 pg (27.0-33.0); Mean Corpuscular Volume 89.6 fL (80.0-98.0); Mean Platelet Volume 10.9 fL (9.4-12.3); Platelet Count 364 X10*3/uL (160-400); Red Blood Count 2.98 X10*6/uL (4.20-5.50); Red Cell Distribution Width 18.5 % (11.0-16.0); White Blood Count 7.2 X10*3/uL (4.8-10.8)
[2024-08-09 13:56] LABS: Anion Gap 14 (12-20); Blood Urea Nitrogen 22 mg/dL (9-16); Calcium 9.2 mg/dL (8.4-10.2); Carbon Dioxide 28 mmol/L (22-29); Chloride 101 mmol/L (96-108); Creatinine Clr Calc Pharmacy 51.9; Estimated Glomerular Filt Rate > 60; Glucose Random 141 mg/dL (60-115); Phosphorus 3.2 mg/dL (2.7-4.5); Sodium 139 mmol/L (135-145)
[2024-08-09] MEDS: cefTRIAXone sodium 2 GM VIAL IVPUSH (16:31)
[2024-08-09] MEDS: 0.9 % Sodium Chloride Flush 3 ML SYRINGE IVFLUSH (16:31)
[2024-08-09 16:52] LABS: Glucose, Whole Blood 239 mg/dL (60-115)
[2024-08-09 21:14] LABS: Glucose, Whole Blood 179 mg/dL (60-115)
[2024-08-10] MEDS: 0.9 % Sodium Chloride Flush 3 ML SYRINGE IVFLUSH ×2 (01:02→08:41)
[2024-08-10 03:24] VITALS: BP 115/61; PULSE 111; RESP 19; TEMP 37.6; O2SAT 95
[2024-08-10 06:58] LABS: Glucose, Whole Blood 229 mg/dL (60-115)
[2024-08-10 07:15] VITALS: BP 117/74; PULSE 109; RESP 16; TEMP 36.4; O2SAT 95
[2024-08-10] MEDS: Nystatin Powder 15 GM BOTTLE 1 APPL TOPICAL (08:38)
[2024-08-10] MEDS: Clotrimazole 1 % Cream 15 GM TUBE 1 APPL TOPICAL (08:38)
[2024-08-10] MEDS: Insulin Lispro 100 UNIT/ML 3 ML VIAL SUBCUT ×2 (08:38→11:28)
[2024-08-10] MEDS: Sodium,Potassium Phosphates POWD.PACK 1 PACKET G-TUBE (08:38)
[2024-08-10] MEDS: 0.9 % Sodium Chloride Flush 10 ML SYRINGE 5 ML IVFLUSH (08:42)
--- NOTE | 2024-08-10 10:19 | MHC.CM.PN ---
Patient is medically cleared for dc today.PT is recommending STR and Patient has a SNF bed offer at [facility]. CM left a detailed and urgent message with Sister/HCP/Mojgan @ listed # and awaits a return call to determine the final dc plan (Patient prefers to go home). CM will follow.
[2024-08-10 10:32] VITALS: BP 117/74; PULSE 109; O2SAT 95
--- NOTE | 2024-08-10 10:43 | MHC.SL.SWA ---
Speech Pathologist Impression: Risk of Aspiration Due to: Lethargy Reduced Cognition Dysphasia Diet Status: Recommend continue Puree Solids and Thin Liquids. Medications Crushed in Puree. She requires 1:1 Feeding Assistance. Prior to PO administration, ensure adequate alertness, repositioning upright with towels/pillow placed to the right side of head and neck to maintain midline posture during feeding. Recommend diet be continued at next level of care. Liquid Consistency and Strategies for Safe Swallow: Liquid Intake Recommendation: Thin Liquid Intake Strategies: Small Sips Solid Food Consistency: Dietary Recommendations: Pureed (NDD1) Additional Modifications to Solid Foods: She requires 1:1 Feeding Assistance. Prior to PO administration, ensure adequate alertness, repositioning upright with towels/pillow placed to the right side of head and neck to maintain midline posture during feeding. Alternate liquids and solids. Oral Medication Intake: Crushed with Puree Please contact the pharmacy regarding appropriate crushable or liquid drug formulations that are available whenever modified delivery is recommended. Compensatory Strategies and Precautions to be Taken for Safe Swallow: Sitting Upright (90 deg) Small Bites and Sips Alternate Liquids/Solids Rate of Ingestion Change Oral Check Supervision While Eating and Drinking for Safe Swallow: Total Assistance (1:1) Foods to Avoid: Mixed consistencies. Swallowing Recommended Treatments: Compens. Strategy Educat. Recommendation for Speech: Inpatient Speech Therapy Comment: Pt seen at breakfast, was being fed by MERCHANDISING ASSISTANT with student present. Patient's head of bed was elevated to 90 degrees, with patient awake, alert and communicative. MERCHANDISING ASSISTANT doing excellent job with feeding, presenting food in tsp amounts, waiting for swallow before presenting more, alternating liquids and solids, and checking with patient regularly if ready for more or wanting other food items on tray. Patient presents with prolonged oral phase with some tongue pumping noted, mild delay of swallow, good oral clearance on swallow. Patient noted to take serial sips from straw and tolerated well. Patient now on baseline diet, tolerating well. Plan is d/c to LTC facility, pending. Recommend continue Puree (NDD1) with thin liquids, pills crushed in puree, while inpatient and next level of care. Frequency/Duration: PRN M-F Date Range for Service Req: Timeline to reassess: PRN Human Resource Officer Clinican/Clinical Fellow: No Supervisory Statement: I have reviewed and agree with the student/clinical fellow's documentation: N/A Speech Language Pathologist: Sirisha Harrison M.A., [facility] [employer] CONSULTANT
[2024-08-10 10:56] LABS: Glucose, Whole Blood 232 mg/dL (60-115)
--- NOTE | 2024-08-10 11:10 | P.DS_ITS ---
DS: Providers Provider Date of Service: 08/10/24 Date of admission: 07/21/24 13:10 Date of discharge: 08/10/24 Primary care physician: None Physician Consults: 07/21/24 18:00 Consult to Wound Care Routine Reason for consultation: deep tissue injury to coccyx, present on admission Has provider been notified: Yes 07/28/24 02:33 Consult to Infectious Diseases Routine Consulting Provider: [facility] Reason for consultation: osteomyelitis of the coccyx 07/28/24 14:14 Consult to Wound Care Routine Reason for consultation: copccygeal ulcer/osteo 07/28/24 14:16 Consult to Wound Care Routine Reason for consultation: wound 08/01/24 15:43 Consult to Neurology Routine Consulting Provider: [facility] Reason for consultation: encephalopathy/seizure Has provider been notified: No DS: Diagnosis Discharge Diagnosis (1) Metabolic encephalopathy: Status: Acute (2) UTI (urinary tract infection): Status: Acute (3) Cachexia: Status: Acute (4) Thrombocytopenia: Status: Acute DS: Summary Hospital Course Hospital Course: History of presenting illness: Date of Service: 07/21/24 Chief Complaint: Confusion 59-year-old lady with underlying Hermansky Pudlak syndrome, diabetes mellitus, developmental delay, hypertension admitted on 07/21/2024 with complains of diarrhea and confusion. On ER evaluation patient with elevated serum ketones, but no acidosis, started on insulin drip and admitted to the intensive care unit. Hospital course: 59yo F with Hermansky-Pudlak syndrome, DM2, developmental delay, HTN admitted to ICU with septic shock from acute pyelonephritis requiring pressor support, E co li bacteremia [sensitive to ceftriaxone]. Large unstageable cocycgeal ulcer with alk phos 1200+ and hyperglycemia admitted to ICU treated with pressors, insulin and subsequently step-down to telemetry on 07/27. Hospital course complicated by encephalopathy, seizure-like activity, pancytopenia, and CHICHI. Septic shock due to E. coli bacteremia/pyelonephritis and acute on chronic sacral osteomyelitis , initially treated with vancomycin and ceftriaxone, subsequently vancomycin discontinued, since nasal MRSA screen negative and blood culture negative for MRSA, now on IV ceftriaxone for total 6 weeks end date as per ID recommendations , repeat blood cultures are negative, patient evaluated by wound care for stage IV pressure injury with large sacral wound recommend to continue wound care as ordered. acute toxic metabolic encephalopathy likely related to infection and CHICHI resolved noted to have normal head CT and ammonia. Seizure-like activity noted in ICU, EEG showed no epileptiform discharges but to show moderately severe diffuse background slowing consistent with diffuse encephalopathic process, evaluated by neurologist no antiepileptic recommended. Severe malnutrition with muscle wasting and cachexia required NG feedings currently tolerating diet recommend to continue supplements, mild hypophosphatemia resolved with replacement. Pancytopenia due to septic shock, hematocrit improved after 2 units of packed RBC, platelets normalized. CHICHI due to ATN from septic shock resolved. Acute hypernatremia resolved. DM2 with hyperglycemia , noted to have elevated blood sugars with no DKA unit admission. Has history of hypertension but noted to have soft blood pressures therefore will discontinue lisinopril recommend to follow blood pressure . Time Attestation Discharge Coordination Time (in mins): 38 Quality: Safe Use of Opioids Does Pt have an Active Cancer Diagnosis on the Problem List?: No Quality: Stroke Does the patient have a stroke diagnosis?: No Physical Exam Vital Signs: Vital Signs: Last Vital Signs Temp 97.6 F 08/10/24 07:15 Pulse 109 H 08/10/24 10:32 Resp 16 08/10/24 07:15 BP 117/74 08/10/24 10:32 Pulse Ox 95 08/10/24 10:32 O2 Del Method Room Air 08/10/24 07:15 O2 Flow Rate 2 08/08/24 11:14 BMI result Body Mass Index 14.1 Const: Other: General awake alert, cachectic , in no acute distress. Neck no JVD. CVS regular rate rhythm, no murmurs Respiratory lungs clear to auscultation, no respiratory distress, no wheeze, no rhonchi. Gastrointestinal abdomen soft, non tender, bowel sounds audible, no guarding , no rigidity. Extremities right upper extremity PICC line, no edema. Neuro speech clear. Skin left upper extremity ecchymosis Sacral wound as per wound nurse evaluation? Stage 4 Pressure Injury - Admitted with Deep Tissue Injury in Evolution Wound Bed: pink moist wound bed with moist fibrinous slough small pin point exposed rough bone Drainage / Odor: no odor noted - macias yellow serosang drainage Edges: ? unattached Darby wound: ?MASD - and Fungal dermatitis DS: Data Data Completed and Pending Labs on day of discharge: Laboratory Results - last 24 hr 08/09/24 08/09/24 08/09/24 13:28 16:34 21:03 WBC 7.2 RBC 2.98 L Hgb 8.7 L Hct 26.7 L MCV 89.6 MCH 29.2 MCHC 32.6 RDW 18.5 H Plt Count 364 D MPV 10.9 Absolute Nucleated RBC 0.000 Nucleated RBC % (auto) 0.0 Sodium 139 Potassium 4.0 Chloride 101 Carbon Dioxide 28 Anion Gap 14 BUN 22 H Creatinine 0.65 Estim Creat Clear Calc 51.9 Estimated GFR > 60 POC Glucose 239 H 179 H Random Glucose 141 H Calcium 9.2 D Phosphorus 3.2 08/10/24 08/10/24 06:51 10:52 WBC RBC Hgb Hct MCV MCH MCHC RDW Plt Count MPV Absolute Nucleated RBC Nucleated RBC % (auto) Sodium Potassium Chloride Carbon Dioxide Anion Gap BUN Creatinine Estim Creat Clear Calc Estimated GFR POC Glucose 229 H 232 H Random Glucose Calcium Phosphorus Preliminary micro results at discharge 07/30/24 11:02 - Preliminary Blood - Venous Discharge Plan Discharge Anticipated Discharge Date/Time: 08/10/24 11:07 Patient Disposition: Xfer [facility] Discharge Diagnosis: Septic shock due to E coli bacteremia Sacral osteomyelitis Severe malnutrition CHICHI Pancytopenia Referrals: Laurie Blum [facility] [Outside] - 1 Week Physician,None [Primary Care Provider] - 1 Week Discharge Medications: New nystatin 100,000 unit/gram Powder 1 appl topical TID Qty: 30 0RF Protocol: Apply to: Apply to: Affected area ceftriaxone 2 gram Recon Soln 2 g IVPUSH Q24H Qty: 10 0RF acetaminophen 325 mg Tablet 650 mg PO Q6H PRN (Reason: Fever >100.4) Qty: 30 0RF Continued allopurinol 100 mg Tablet 100 mg PO DAILY insulin lispro [Humalog KwikPen Insulin] 100 unit/mL Insulin Pen 1 sliding scale dose SUBCUT USEASDIRECTD Changed insulin glargine [Lantus Solostar U-100 Insulin] 100 unit/mL (3 mL) Insulin Pen 12 unit SUBCUT BEDTIME Qty: 15 0RF Discontinued lisinopril 10 mg Tablet 10 mg PO DAILY Discharge Orders: Discharge Order (Routine); Ordered 08/10/24 Ordered By: Little Mckeon Diet: add supplemets Activity on Discharge: As tolerated Stand Alone Forms: Patient Portal Discharge page Print Language: Tristanian Care Plan Goals: Sacral osteomyelitis continue IV ceftriaxone Q 24 hours end date 09/01 Wound care as follow for stage IV pressure injury sacrum Monitor blood sugars continue insulin sliding scale and Lantus insulin Recommendations: 1. Turn and Reposition every 2 hours and as needed for patient comfort.? Use pillows or wedges to support off loading positions. 2. Off Load all bony prominences with use of pillows and heel boots if needed.? Apply Preventative foams where needed. ? 3. Monitor for incontinence and moisture control, use barrier creams when needed for prevention and treatment. 4. Provide adequate and supplemental nutrition.? 5. Continue low air loss mattress. 6. When applicable maintain blood glucose levels per Providers order. 7. Sacrum - Off Load Pressure - Cleanse and irrigate with NS, pat dry. ?Apply antifungal powder to periwound followed by thin layer of Triad, lightly pack wound bed with Durafiber AG, cover with dry gauze, ABD pad and secure in place. Change every other day and PRN for soiling. 8. Right Nose - Should patient begin to pick at scab on nose - Cleanse with NS cover with hydrocolloid change every 3-4 days. Otherwise may leave RADAMES at this time. PATIENT BEING DISCHARGED TO REHAB FACILITY FOR LESS THAN 30 DAYS Health Concerns: Diet pureed, 330 ensure max b.i.d. thin liquids currently on regular diet Plan of Treatment: Outpatient follow-up with primary care physician/physical therapy as tolerated Assessment: As above
--- NOTE | 2024-08-10 11:14 | MHC.CM.PN ---
Patient has been medically cleared for dc to SNF/STR & IV ABT today. CM met with Patient at bedside, while Sister/HCP/Mojgan was on speaker phone, explaining to Patient that she is unable to manage IV ABT at home. All have agreed that Patient will dc to [facility] SNF today at 12:30 PM, via [facility]; IMM was addressed with both and will be mailed certified letter to Mojgan.
[2024-08-10 11:18] VITALS: BP 109/60; PULSE 109; RESP 16; TEMP 36.3; O2SAT 98
== END 2024-08-10 13:29 | disposition skilled nursing facility (03) | DRG 871 ==
LOC: HO.ED 13:21 → HO.EDOVER 13:48 → HO.ICU 13:56 → HO.IMC 07-27 16:38
PROVIDERS: Family Medicine; Internal Medicine; Internal Medicine Critical Care Medicine; Physician Assistant Medical; Registered Nurse Community Health; Admitting Provider Internal Medicine Pulmonary Disease; Emergency Provider Student in an Organized Health Care Education/Training Program; Visit Provider Hospitalist
DX: A41.51 Sepsis due to Escherichia coli [E. coli] (principal); D66 Hereditary factor VIII deficiency; L89.154 Pressure ulcer of sacral region, stage 4; E11.00 Type 2 diabetes mellitus with hyperosmolarity without nonketotic hyperglycemic-hyperosmolar coma (NKHHC); R65.21 Severe sepsis with septic shock; E43 Unspecified severe protein-calorie malnutrition; N17.0 Acute kidney failure with tubular necrosis; G92.8 Other toxic encephalopathy; E70.331 Hermansky-Pudlak syndrome; D61.818 Other pancytopenia; Z68.1 Body mass index [BMI] 19.9 or less, adult; E87.0 Hyperosmolality and hypernatremia; N12 Tubulo-interstitial nephritis, not specified as acute or chronic; M46.28 Osteomyelitis of vertebra, sacral and sacrococcygeal region; E83.39 Other disorders of phosphorus metabolism; E11.69 Type 2 diabetes mellitus with other specified complication; R62.50 Unspecified lack of expected normal physiological development in childhood; E86.0 Dehydration; I10 Essential (primary) hypertension; Z20.822 Contact with and (suspected) exposure to COVID-19; Z79.4 Long term (current) use of insulin; Z79.899 Other long term (current) drug therapy
CPT/HCPCS: 0241U; 36415; 36573; 70450; 71045; 71046; 72193; 74176; 76705; 76775; 80048; 80051; 80053; 80076; 80202; 80307; 81001; 82010; 82040; 82140; 82272; 82310; 82565; 82803; 82947; 83010; 83036; 83605; 83615; 83690; 83735; 84100; 84145; 84295; 84443; 84484; 84520; 85007; 85014; 85018; 85025; 85027; 85049; 85379; 85384; 85610; 85652; 86140; 86850; 86900; 86901; 86923; 87040; 87077; 87086; 87088; 87116; 87186; 87205; 87640; 87641; 92526; 92610; 93005; 93306; 95816; 97110; 97162; 97530; 97535; 99285; C1751; C1758; J0131; J0613; J0692; J0696; J1450; J1644; J1650; J1790; J1953; J2060; J2250; J2470; J3370; J3480; J7120; P9016; P9047; P9073; Q9967

== ENCOUNTER → 2024-07-21 13:09 | Outpatient (BNV) | payer MEDICARE, MEDICAID, SELFPAY | PROVIDERS: Admitting Provider Internal Medicine Pulmonary Disease; Emergency Provider Student in an Organized Health Care Education/Training Program; Visit Provider Internal Medicine Cardiovascular Disease | DX: R94.31 Abnormal electrocardiogram [ECG] [EKG] (principal) | CPT/HCPCS: 93306 ==

== ENCOUNTER → 2024-07-21 13:10 | Outpatient (BNV) | payer MEDICARE, MEDICAID, SELFPAY | PROVIDERS: Admitting Provider Internal Medicine Pulmonary Disease; Emergency Provider Student in an Organized Health Care Education/Training Program; Visit Provider Psychiatry & Neurology Neurology | DX: G93.41 Metabolic encephalopathy (principal) | CPT/HCPCS: 99222 ==

== ENCOUNTER → 2024-07-21 13:10 | Outpatient (BNV) | payer MEDICARE, MEDICAID, SELFPAY | PROVIDERS: Admitting Provider Internal Medicine Pulmonary Disease; Emergency Provider Student in an Organized Health Care Education/Training Program; Visit Provider Registered Nurse Community Health | DX: D69.6 Thrombocytopenia, unspecified (principal); D72.819 Decreased white blood cell count, unspecified; A41.9 Sepsis, unspecified organism; R65.21 Severe sepsis with septic shock | CPT/HCPCS: 99291; 99499 ==

== ENCOUNTER → 2024-07-21 13:10 | Outpatient (BNV) | payer MEDICARE, MEDICAID, SELFPAY | PROVIDERS: Admitting Provider Internal Medicine Pulmonary Disease; Emergency Provider Student in an Organized Health Care Education/Training Program; Visit Provider Internal Medicine Pulmonary Disease | DX: A41.9 Sepsis, unspecified organism (principal); R65.21 Severe sepsis with septic shock; N39.0 Urinary tract infection, site not specified; N17.9 Acute kidney failure, unspecified; E70.331 Hermansky-Pudlak syndrome; E87.0 Hyperosmolality and hypernatremia; E86.1 Hypovolemia; R64 Cachexia | CPT/HCPCS: 36556; 99223; 99291 ==

== ENCOUNTER → 2024-07-21 13:10 | Outpatient (BNV) | payer MEDICARE, MEDICAID, SELFPAY | PROVIDERS: Admitting Provider Internal Medicine Pulmonary Disease; Emergency Provider Student in an Organized Health Care Education/Training Program; Visit Provider Family Medicine | DX: G93.41 Metabolic encephalopathy (principal); N39.0 Urinary tract infection, site not specified; R64 Cachexia; D69.6 Thrombocytopenia, unspecified | CPT/HCPCS: 99231; 99232; 99233; 99239; 99499 ==

== ENCOUNTER → 2024-07-21 13:10 | Outpatient (BNV) | payer MEDICARE, MEDICAID, SELFPAY | PROVIDERS: Admitting Provider Internal Medicine Pulmonary Disease; Emergency Provider Student in an Organized Health Care Education/Training Program; Visit Provider Internal Medicine | DX: A41.9 Sepsis, unspecified organism (principal); R65.21 Severe sepsis with septic shock | CPT/HCPCS: 99222 ==